=== PATIENT | female | born 1935 | race Caucasian/White ===

== ENCOUNTER → 2016-11-11 | Outpatient (CLI) | payer OTHER ==
[~2016-11-11] MED LIST: ACET-1311 PO; BACL10TA PO; BIOT1CAP8 PO; CALC-335 PO; CALC600T9 PO; CITA10TA8 PO; COLON HEALTH PO; CYAN100048 PO; CYM/30 PO; DFL100 PO; DULO60CA44 PO; ERTA1INJ IV; LACT1CAP6 PO; LEVO75TA PO; LORA-741 PO; LSN25 PO; LYR50 PO; MELA1TAB4 PO; MELA3TAB12; MISCTAB78 PO; MULT-506 PO; NITR100C43 PO; NXM/40 PO; PHEN-876 PO; POLY335019 PO; POLY335040 PO; PRAMCRE2 PR; PRED-301 PO; RANI300T2 PO; SENN-65 PO; SENNTAB23 PO; TRAM-10 PO
[2016-11-11 12:50] LABS: BASO % 0.1 %; BASO ABS # 0.02 K/uL (0-0.2); COMPLETE YES; EOS % 0.5 %; HEMATOCRIT 41.7 % (37-47); IG% 0.9 %; LYMPH % 22.7 %; LYMPH ABS # 3.17 K/uL (1.2-3.4); MEAN CELL VOLUME 94.8 fL (80-100); MEAN CORPUSCULAR HEMOGLOBIN 31.4 pg (25-34); MEAN CORPUSCULAR HGB CONC 33.1 g/dl (32-36); MEAN PLATELET VOLUME 10.3 fL (7.4-10.4); NEUT % 63.8 %; PLATELET COUNT 330 K/uL (130-400); WHITE BLOOD COUNT 13.94 K/uL (4.8-10.8)
[2016-11-11 17:48] LABS: ALT/SGPT 32 U/L (12-78); AST/SGOT 22 U/L (15-37); BLOOD UREA NITROGEN 29 mg/dl (7-18); BUN/CREATININE RATIO 22.7 (10-20); CALCIUM 9.2 mg/dl (8.5-10.1); CARBON DIOXIDE 26 mmol/L (21-32); CHLORIDE 105 mmol/L (98-107); GLUCOSE 86 mg/dl (70-99); POTASSIUM 3.9 mmol/L (3.5-5.1); SODIUM 137 mmol/L (136-145)
[2016-11-11 17:58] LABS: ALB/GLOB RATIO 1.1 (0.9-2); ALKALINE PHOSPHATASE 72 U/L (45-117); THYROID STIMULATING HORMONE 0.906 uIu/ml (0.300-4.500)
--- NOTE | 2016-11-18 08:40 | CODING QUERY MEDICAL NECESSITY ---
CQSUPPORTING DIAGNOSIS NEEDED A supporting diagnosis is required for the test/procedure performed on this patient in order for us to be reimbursed by the patient's insurance. Please provide a supporting diagnosis for the following test/procedure listed below next to the test name along with your signature. *If there is no additional diagnosis for this patient that would support the following test/procedure please document that below next to the test/procedure. Test(s)/Procedure(s) that require a supporting diagnosis: DOS 11/11/16 VITAMIN D TEST Provider Signature: Date: Thank you Nirmala Hammonds Health Information Management Once completed, please kindly fax back to [phone] For questions please call [phone]
== END | disposition home or self-care (01) ==
LOC: C.LABPBG 11:37
PROVIDERS: ATTEND Internal Medicine
DX: M81.0 Age-related osteoporosis without current pathological fracture (principal); E03.9 Hypothyroidism, unspecified

== ENCOUNTER → 2016-11-26 | Day surgery (SDC) | payer OTHER ==
[2016-11-21 11:06] VITALS: Ht 154.9 cm; Wt 68.2 kg
[~2016-11-26] VITALS: Ht 154.9 cm; Wt 68.2 kg
[~2016-11-26] MED LIST changes: -ACET-1311 PO; -CALC-335 PO; -CITA10TA8 PO; +LIDOCAINE HCL 2% 2 ML VIAL (20MG/ML) ONE; -POLY335040 PO; -PRAMCRE2 PR; +PROPOFOL IV EMULSION 10 MG/ML 20 ML VIAL IV ONE; -SENN-65 PO; -TRAM-10 PO
--- NOTE | 2016-11-26 13:04 | Endo History and Physical ---
History & Physical Date of Service: November 26, 2016. Chief Complaint: n/v; h/o polyps Referring Physician: History of Present Illness recurrent nausea, vomiting H/o polyps Past Medical History Osteoporosis, Fractures, Reflux, Hypertension, Thyroid Disease, Kidney Disease, Depression Past Surgical History Hx Cardiac Surgery: No Hx Internal Defibrillator: No Hx Pacemaker: No Hx Abdominal Surgery: Yes ([facility] BSO, APPY, ALISON) Hx of Implantable Prosthesis: No Hx Post-Op Nausea and Vomiting: No Hx Cancer Surgery: No Hx Thoracic Surgery: No Hx Orthopedic: No Hx Urinary Tract Surgery: No Family History Colon CA Social History Smoking Status: Never Smoker Hx Substance Use: No Hx Alcohol Use: No Allergies Coded Allergies: Sulfamethoxazole w/Trimethoprim (Verified Allergy, Severe, "lips swell", ) Sulfa Antibiotics (Verified Allergy, Unknown, swelling of lips, 11/26/16) Codeine (Verified Adverse Reaction, Mild, "nauseated", 11/26/16) Propoxyphene (Verified Adverse Reaction, Mild, "nauseated", 11/26/16) Current Medications Reported Home Medications Medications Dose Route/Sig Max Daily Dose Days Date Category Osteo Bi-Flex Advanced Do ([facility] [place] Natural Products) 1 Tab Tab 1 Tab PO QAM 11/21/16 Reported Stool Softener (Sennosides-Docusate Sodium) 1 Tab Tab 1 Tab PO BID 11/21/16 Reported [Colon Health] 1 Tab PO HS 11/21/16 Reported Calcium + D (Calcium Carbonate-Vitamin D) 1 Tab Tab 2 Tabs PO LUNCH 11/21/16 Reported Cymbalta (Duloxetine HCl) 30 Mg Cap 1 Cap PO QAM 11/21/16 Reported Melatonin (Melatonin-Pyridoxine) 1 Tab Tab 2 Mg HS PRN 02/15/16 Reported Nexium (Esomeprazole Magnesium) 40 Mg Capcr 40 Mg PO QAM 02/15/16 Reported Prednisone 5 Mg Tab 15 Mg PO LUNCH 02/15/16 Reported Lioresal (Baclofen) 10 Mg Tab 10 Mg PO TID PRN 02/15/16 Reported Ativan (Lorazepam) 0.5 Mg Tab 0.5 Mg PO Q8 PRN 10/04/15 Reported Lyrica (Pregabalin) 50 Mg Cap 50 Mg PO BID 10/04/15 Reported Biotin 1 Mg Cap 1 Cap PO LUNCH 07/16/14 Reported Synthroid (Levothyroxine Sodium) 75 Mcg Tab 75 Mcg PO QAM 12/28/13 Reported Multivitamin (Multivitamins) Tab 1 Tab PO LUNCH 08/20/11 Reported Cymbalta (Duloxetine Hcl) 60 Mg Cap 60 Mg PO QAM 08/20/11 Reported Zantac (Ranitidine HCl) 300 Mg Tab 300 Mg PO HS 08/20/11 Reported Vital Signs Weight (Kilograms): 68.18 Height (Feet): 5 Height (Inches): 1 Date Time Temp Pulse Resp B/P Pulse Ox O2 Delivery O2 Flow Rate FiO2 11/26/16 12:33 36.8 87 18 151/85 95 Room Air Physical Exam General Appearance: no apparent distress Respiratory/Chest: Auscultation: breath sounds normal Cardiovascular: Heart Auscultation: RRR Abdomen: Inspection & Palpation: soft Assessment and Plan EGD/cscopy
--- NOTE | 2016-11-26 14:37 | GI REPORT ---
Procedure Date: 11/26/2016 12:38 PM Procedure: Colonoscopy Indications: High risk colon cancer surveillance: Personal history of colonic polyps Medicines: See the Anesthesia note for documentation of the administered medications Complications: No immediate complications. Estimated Blood Loss: Estimated blood loss: none. Procedure: Pre-Anesthesia Assessment: - ASA Grade Assessment: III - A patient with severe systemic disease. After I obtained informed consent, the scope was passed under direct vision. Throughout the procedure, the patient's blood pressure, pulse, and oxygen saturations were monitored continuously. The scope was introduced through the anus and advanced to the terminal ileum. The patient tolerated the procedure well. The quality of the bowel preparation was fair. The colonoscopy was somewhat difficult due to a tortuous colon. Findings: The perianal exam findings include non-thrombosed external hemorrhoids. An area of moderately melanotic mucosa was found in the entire colon. A 8 mm polyp was found in the ascending colon. The polyp was sessile. The polyp was removed with a saline injection-lift technique using a hot snare. Resection and retrieval were complete. To prevent bleeding after the polypectomy, one hemostatic clip was successfully placed. There was no bleeding at the end of the procedure. A 5 mm polyp was found in the ascending colon. The polyp was sessile. The polyp was removed with a hot snare. Resection and retrieval were complete. A 2 mm polyp was found in the transverse colon. The polyp was sessile. The polyp was removed with a cold snare. Resection and retrieval were complete. Multiple small and large-mouthed diverticula were found in the sigmoid colon and in the descending colon. Hemorroids on retroflexion. Impression: - Non-thrombosed external hemorrhoids found on perianal exam. - Melanotic mucosa in the entire examined colon. - One 8 mm polyp in the ascending colon, removed using injection-lift and a hot snare. Resected and retrieved. Clip was placed. - One 5 mm polyp in the ascending colon, removed with a hot snare. Resected and retrieved. - One 2 mm polyp in the transverse colon, removed with a cold snare. Resected and retrieved. - Diverticulosis in the sigmoid colon and in the descending colon. Recommendation: - Discharge patient to home. Sander Kraus MD 11/26/2016 2:37:04 PM This report has been signed electronically. Note Initiated On: 11/26/2016 12:38 PM I attest to the content of the Intraoperative Record and orders documented therein, exceptions below
--- NOTE | 2016-11-26 14:39 | GI REPORT ---
Procedure Date: 11/26/2016 12:39 PM Procedure: Upper GI endoscopy Indications: Abdominal pain Medicines: See the Anesthesia note for documentation of the administered medications Complications: No immediate complications. Estimated Blood Loss: Estimated blood loss: none. Procedure: Pre-Anesthesia Assessment: - ASA Grade Assessment: III - A patient with severe systemic disease. After obtaining informed consent, the endoscope was passed under direct vision. Throughout the procedure, the patient's blood pressure, pulse, and oxygen saturations were monitored continuously. The scope was introduced through the mouth, and advanced to the second part of duodenum. The upper GI endoscopy was accomplished without difficulty. The patient tolerated the procedure well. Findings: The esophagus was markedly tortuous. The GE junction was at 32 cm. There was a small hiatal hernia. There was a mild candidal infection in the lower esophagus. The stomach and duodenum were unremarkable. Recommendation: - Discharge patient to home. Sander Kraus MD 11/26/2016 2:39:36 PM This report has been signed electronically. Note Initiated On: 11/26/2016 12:39 PM I attest to the content of the Intraoperative Record and orders documented therein, exceptions below
--- NOTE | 2016-11-26 14:54 | Anesthesia Progress Nt - [facility] ---
Anesthesia Post Op Note Date & Time November 26, 2016 at 14:54 Vital Signs Pain Intensity: 0 Vital Signs Past 12 Hours Date Time Temp Pulse Resp B/P Pulse Ox O2 Delivery O2 Flow Rate FiO2 11/26/16 14:41 72 16 154/76 97 Room Air 11/26/16 14:26 72 16 145/84 97 Room Air 11/26/16 14:11 75 16 155/81 97 Room Air 11/26/16 12:33 36.8 87 18 151/85 95 Room Air Notes Mental Status: alert / awake / arousable, participated in evaluation Pt Amnestic to Procedure: Yes Nausea / Vomiting: adequately controlled Pain: adequately controlled Airway Patency, RR, SpO2: stable & adequate BP & HR: stable & adequate Hydration State: stable & adequate Anesthetic Complications: no major complications apparent
[2016-11-26 15:02] VITALS: BP 162/84; PULSE 72; O2SAT 94
--- NOTE | 2016-11-26 15:15 | Discharge Instructions ---
Endoscopy Patient Instructions Date / Procedure(s) Performed November 26, 2016. Colonoscopy, EGD Allergy Information Coded Allergies: Sulfamethoxazole w/Trimethoprim (Verified Allergy, Severe, "lips swell", ) Sulfa Antibiotics (Verified Allergy, Unknown, swelling of lips, 11/26/16) Codeine (Verified Adverse Reaction, Mild, "nauseated", 11/26/16) Propoxyphene (Verified Adverse Reaction, Mild, "nauseated", 11/26/16) Discharge Date / Findings November 26, 2016. Colon polyps Provider Instructions Activity Restrictions - No exercising or heavy lifting for 24 hours. - Do not drink alcohol the day of the procedure. - Do not drive a car or operate machinery until the day after the procedure. - Do not make any important decisions or sign important papers in 24 hours after the procedure. Following Day: - Return to full activity which may include returning to work/school. Diet Start your diet with liquids and light foods (jello, soup, juice, toast). Then eat your usual diet if not nauseated. Treatment For Common After Affects For mild abdominal pain, bloating, or excessive gas: - Rest - Eat lightly - Lie on right side Follow-Up Information Follow-up with as scheduled Anesthesia Information What You Should Know You have had a procedure that required some medicine to reduce anxiety and discomfort. This treatment is called moderate sedation. After receiving the treatment, you may be sleepy, but you will be able to breathe on your own. The effects of the treatment may last for several hours. Follow these instructions along with Activity/Diet recommendations noted above: * Do NOT do anything where dizziness or clumsiness would be dangerous. * Rest quietly at home today, then you can be up and about tomorrow. * Have a responsible person stay with you the rest of today. * You may have had an I.V. today. If so, you may take the dressing off later today. Recommendations Call your doctor if: * Trouble breathing * Continuous vomiting for more than 24 hours * Temperature above 101 degrees * Severe abdominal pain or bloating * Pain not relieved by pain medicine ordered * There is increased drainage or redness from any incision * A large amount of rectal bleeding greater than 2-3 tablespoons. (If you had a polyp/s removed or have hemorrhoids, a small amount of blood - from the rectum is to be expected.) * You have any unanswered questions or concerns. IN THE EVENT OF A SERIOUS EMERGENCY, GO TO THE NEAREST EMERGENCY ROOM Your discharge instructions were prepared by provider Teresa Stuart. Patient Instructions Signature Page Jennifer Vieira Patient (or Guardian) Signature/Date: I have read and understand the instructions given to me by my caregivers. Caregiver/RN/Doctor Signature/Date: The above-named patient and/or guardian has received patient instructions on this date. + Original Patient Signature Page (only) stays with chart. Please make copy for patient.
== END | disposition home or self-care (01) ==
LOC: C.GI 12:01
PROVIDERS: ATTEND Internal Medicine Gastroenterology
DX: K44.9 Diaphragmatic hernia without obstruction or gangrene (principal); B37.81 Candidal esophagitis; R10.9 Unspecified abdominal pain; Z12.11 Encounter for screening for malignant neoplasm of colon; D12.3 Benign neoplasm of transverse colon; D12.2 Benign neoplasm of ascending colon; K57.30 Diverticulosis of large intestine without perforation or abscess without bleeding; K63.89 Other specified diseases of intestine; Z86.010 Personal history of colon polyps; Z80.0 Family history of malignant neoplasm of digestive organs; K64.4 Residual hemorrhoidal skin tags; I10 Essential (primary) hypertension; K21.9 Gastro-esophageal reflux disease without esophagitis; E07.9 Disorder of thyroid, unspecified; N28.9 Disorder of kidney and ureter, unspecified; F32.9 Major depressive disorder, single episode, unspecified; M81.0 Age-related osteoporosis without current pathological fracture; Z79.899 Other long term (current) drug therapy

== ENCOUNTER → 2016-12-26 | Outpatient (CLI) | payer OTHER ==
[~2016-12-26] MED LIST changes: -LIDOCAINE HCL 2% 2 ML VIAL (20MG/ML) ONE; -PROPOFOL IV EMULSION 10 MG/ML 20 ML VIAL IV ONE
== END | disposition home or self-care (01) ==
LOC: C.LABPBG 14:49
PROVIDERS: ATTEND Internal Medicine
DX: R32 Unspecified urinary incontinence (principal)

== ENCOUNTER → 2017-01-13 | Outpatient (CLI) | payer OTHER ==
[~2017-01-13] MED LIST changes: -DFL100 PO; -LSN25 PO; +NITR100C41 PO; -NITR100C43 PO
--- NOTE | 2017-01-13 16:19 | DIAGNOSTIC IMAGING REPORT ---
KUB CLINICAL HISTORY: Nephrolithiasis. FINDINGS: 2 AP supine abdominal radiographs are correlated with abdominal CT dated 10/23/2015. There is a nonobstructed abdominal bowel gas pattern noting moderate colonic fecal retention. There is no radiographic evidence of nephrolithiasis. The left renal shadow the largely obscured by overlying colonic contents. Numerous pelvic phleboliths are observed. The skeletal structures are osteopenic. There is advanced lumbosacral spondylosis and scoliosis with extensive lumbar fusion and bone grafting. Bilateral hip arthroplasties are in place. Chronic pubic ring fractures are noted on the right. A severe chronic compression deformity of T12 is seen. IMPRESSION: 1. Moderate to severe constipation. 2. There is no radiographic evidence of nephrolithiasis on today's examination. Electronically signed by: Venkat Martinez M.D. 01/13/2017 4:18 PM Dictated Date/Time: 01/13/2017 4:17 PM
== END | disposition home or self-care (01) ==
LOC: C.RAD 15:01
PROVIDERS: ATTEND Nurse Practitioner Family
DX: K59.00 Constipation, unspecified (principal); Z87.442 Personal history of urinary calculi

== ENCOUNTER → 2017-02-17 | Outpatient (CLI) | payer OTHER | END | disposition home or self-care (01) | LOC: C.LABSPEC 11:18 | PROVIDERS: ATTEND Nurse Practitioner Family | DX: N39.0 Urinary tract infection, site not specified (principal); R32 Unspecified urinary incontinence ==

== ENCOUNTER → 2017-03-12 | Outpatient (CLI) | payer OTHER ==
[2017-03-12 12:38] LABS: URINE APPEARANCE TURBID (CLEAR); URINE BILIRUBIN NEG (NEG); URINE COLOR YELLOW; URINE EPITHELIAL CELL AUTO >30 /lpf (0-5); URINE NITRITE POS (NEG); URINE PH 8.5 (4.5-7.5); URINE SPECIFIC GRAVITY 1.011 (1.000-1.030); UROBILINOGEN NEG (NEG)
[2017-03-12 12:47] LABS: MANUAL MICROSCOPIC REQUIRED? NO; REVIEW REQ? YES
== END | disposition home or self-care (01) ==
LOC: C.LABPBG 09:14
PROVIDERS: ATTEND Internal Medicine
DX: R32 Unspecified urinary incontinence (principal); N39.0 Urinary tract infection, site not specified

== ENCOUNTER → 2017-03-24 | Outpatient (CLI) | payer OTHER | END | disposition home or self-care (01) | LOC: C.LABSPEC 17:32 | PROVIDERS: ATTEND Nurse Practitioner Family | DX: R39.9 Unspecified symptoms and signs involving the genitourinary system (principal) ==

== ENCOUNTER 2017-03-27 14:51 | Inpatient (IN) | payer OTHER ==
[~2017-03-27] VITALS: Ht 152.4 cm; Wt 73.0 kg
[~2017-03-27 14:51] MED LIST changes: -CYAN100048 PO; -ERTA1INJ IV; -LACT1CAP6 PO; -MELA1TAB4 PO; -NITR100C41 PO; -PHEN-876 PO; -POLY335019 PO
[2017-03-27] MEDS ORDERED: SODIUM CHLORIDE 0.9% 250ML 250 ML IV STA (15:33)
[2017-03-27 15:43] LABS: BASO % 0.1 %; BASO ABS # 0.02 K/uL (0-0.2); COMPLETE YES; HEMATOCRIT 37.6 % (37-47); IG% 0.5 %; LYMPH % 5.9 %; LYMPH ABS # 1.37 K/uL (1.2-3.4); MEAN CELL VOLUME 95.9 fL (80-100); MEAN CORPUSCULAR HEMOGLOBIN 32.4 pg (25-34); MEAN CORPUSCULAR HGB CONC 33.8 g/dl (32-36); MEAN PLATELET VOLUME 10.3 fL (7.4-10.4); NEUT % 85.5 %; PLATELET COUNT 305 K/uL (130-400); RED BLOOD COUNT 3.92 M/uL (4.2-5.4); WHITE BLOOD COUNT 23.25 K/uL (4.8-10.8)
[2017-03-27] MEDS ORDERED: POLY335019 PO (15:50)
[2017-03-27] MEDS ORDERED: LACT1CAP6 PO (15:50)
[2017-03-27] MEDS ORDERED: MELA1TAB4 PO (15:50)
[2017-03-27] MEDS ORDERED: CYAN100048 PO (15:50)
[2017-03-27] MEDS ORDERED: PHEN-876 PO (15:50)
[2017-03-27] MEDS ORDERED: NITR100C41 PO (15:50)
[2017-03-27 15:52] LABS: ALT/SGPT 21 U/L (12-78); BLOOD UREA NITROGEN 16 mg/dl (7-18); BUN/CREATININE RATIO 14.7 (10-20); CALCIUM 9.2 mg/dl (8.5-10.1); CARBON DIOXIDE 23 mmol/L (21-32); CHLORIDE 100 mmol/L (98-107); GLUCOSE 148 mg/dl (70-99); POTASSIUM 3.8 mmol/L (3.5-5.1); SODIUM 132 mmol/L (136-145)
[2017-03-27 15:54] LABS: ALB/GLOB RATIO 0.8 (0.9-2); ALKALINE PHOSPHATASE 68 U/L (45-117); AST/SGOT 22 U/L (15-37)
[2017-03-27 15:55] LABS: PROTHROMBIN TIME (PATIENT) 10.7 SECONDS (9.0-12.0)
--- NOTE | 2017-03-27 15:55 | DIAGNOSTIC IMAGING REPORT ---
CHEST ONE VIEW PORTABLE CLINICAL HISTORY: 81 years-old Female presenting with Sepsis. TECHNIQUE: Portable upright AP view of the chest was obtained. COMPARISON: 02/15/2016. FINDINGS: Atherosclerosis of the aortic arch. Cardiac silhouette normal in size. Bandlike opacities at the lung bases as well as retrocardiac opacities, unchanged from prior. No new focal infiltrate. No large effusion or pneumothorax. Osteopenia may be present. Upper abdomen normal. IMPRESSION: 1. Bibasilar atelectasis or scarring, not significant changed from prior exam. No new focal infiltrate. Electronically signed by: Topher Chahal M.D. 03/27/2017 3:54 PM Dictated Date/Time: 03/27/2017 3:52 PM
[2017-03-27] MEDS ORDERED: ERTAPENEM 1 GM ADDVIAL IV ONE (16:30)
[2017-03-27] MEDS ORDERED: ONDANSETRON INJ 2 MG/ML 2 ML VIAL IV PRN (17:15)
[2017-03-27] MEDS ORDERED: ACETAMINOPHEN 325 MG TAB PO PRN (17:15)
[2017-03-27] MEDS ORDERED: ALUMINUM/MAGNESIUM/SIMETH (MAALOX MAX) 30 ML UDC PO PRN (17:15)
[2017-03-27] MEDS ORDERED: MAGNESIUM HYDROXIDE SUSP 30 ML UDC PO PRN (17:15)
[2017-03-27] MEDS ORDERED: LORAZEPAM 0.5 MG TAB PO PRN (17:15)
[2017-03-27] MEDS ORDERED: BACLOFEN 10 MG TAB PO PRN (17:15)
--- NOTE | 2017-03-27 17:26 | History and Physical ---
History & Physical Date & Time of Service: Mar 27, 2017 at 17:11 Chief Complaint: UTI Primary Care Physician: Topher Artis M.D. History of Present Illness Source: patient, family (daughter at bedside), clinic records, hospital records This is an 81 y/o female with a history of recurrent UTI, SLE, HTN, hypothyroidism, CKD stage III, anxiety and depression, fibromyalgia and urinary incontinence who presented to the ED on 03/27 with urinary tract infection, confusion, weakness and dizziness. The patient had been diagnosed with a UTI as an outpatient and had just completed a course of ampicillin on 03/24. She was following up with urology when a repeat urine culture was taken. The results came back yesterday and was again positive for multi-drug resistant E. coli. The patient was started on Macrobid of which she took 2 doses prior to arrival. Yesterday the patient was having chills and was very dizzy per daughter. Today the patient felt feverish and very weak, unable to even hold herself up. The daughter states that the patient had been confused as well, although this seems to have resolved. The patient complains of a mild but sharp pain in her suprapubic area. She is unable to quantify the severity of the pain. The patient denies sweats, chest pain, palpitations, claudication, cough, wheezing, shortness of breath, nausea, vomiting, dysuria, hematuria, urinary retention, paralysis, motor weakness, numbness and tingling. Past Medical/Surgical History Medical Problems: (1) Benign hypertension Status: Chronic (2) Chronic kidney disease stage 3 Status: Chronic (3) Depression Status: Chronic (4) Diverticular disease of colon Status: Chronic (5) Gastroesophageal reflux disease Status: Chronic (6) History of calculus of kidney Permanent Comment: s/p lithotripsy Status: Chronic (7) History of Clostridium difficile infection Status: Chronic (8) History of esophageal stricture Status: Chronic (9) Hypothyroidism Status: Chronic (10) Osteoporosis Status: Chronic (11) Recurrent UTI Status: Chronic (12) S/P ECT (electroconvulsive therapy) Status: Chronic (13) Spinal stenosis Status: Chronic (14) Spondylolisthesis Status: Chronic (15) Systemic lupus erythematosus Status: Chronic (16) Trigeminal neuralgia Status: Chronic Surgical Problems: (1) History of esophageal dilatation Status: Chronic (2) S/P lumbar fusion Status: Chronic (3) Stat post lithotripsy Status: Chronic (4) Status post cataract extraction Status: Chronic (5) Status post cholecystectomy Status: Chronic (6) Status post hip replacement Status: Chronic (7) Status post hysterectomy Status: Chronic Family History Depression Diabetes mellitus Malignancy (prostate cancer) Social History Smoking Status: Never Smoker Smokeless Tobacco Use: No Alcohol Use: none Drug Use: none Marital Status: Housing status: lives alone Occupational Status: retired Immunizations History of Influenza Vaccine: Yes Influenza Vaccine Date: Apr 04, 2015 History of Tetanus Vaccine?: Yes Tetanus Immunization Date: Dec 29, 2007 History of Pneumococcal: Yes Pneumococcal Date: Jun 19, 2007 Allergies Coded Allergies: Sulfamethoxazole w/Trimethoprim (Verified Allergy, Severe, "lips swell", ) Sulfa Antibiotics (Verified Allergy, Unknown, swelling of lips, 03/27/17) Codeine (Verified Adverse Reaction, Mild, "nauseated", 03/27/17) Propoxyphene (Verified Adverse Reaction, Mild, "nauseated", 03/27/17) Home Medications Scheduled Biotin (Biotin), 1 CAP PO LUNCH Calcium Carbonate-Vitamin D (Calcium + D), 2 TABS PO LUNCH Cyanocobalamin (Vitamin B-12), 1,000 MCG PO DAILY Duloxetine Hcl (Cymbalta), 60 MG PO QAM Esomeprazole Magnesium (Nexium), 40 MG PO QAM Lactobacillus (Probiotic), 1 CAP PO HS Levothyroxine Sodium (Synthroid), 75 MCG PO QAM Misc Natural Products (Osteo Bi-Flex Advanced Do), 1 TAB PO QAM Multivitamin (Multivitamin), 1 TAB PO LUNCH Nitrofurantoin Macrocrystal (Nitrofurantoin), 100 MG PO BID Phenazopyridine HCl (Pyridium), 200 MG PO TID Polyethylene Glycol 3350 (Miralax), 17 GM PO DAILY Prednisone (Prednisone), 10 MG PO LUNCH Pregabalin (Lyrica), 50 MG PO BID Ranitidine (Zantac), 300 MG PO HS Sennosides-Docusate Sodium (Stool Softener), 1 TAB PO BID Scheduled PRN Baclofen (Lioresal), 10 MG PO HS PRN for Muscle Spasms Lorazepam (Ativan), 0.5 MG PO Q8 PRN for Anxiety Melatonin (Melatonin), 1 MG PO HS PRN for Sleep Review of Systems Constitutional: + fever, + chills, + weakness, No sweats Eyes: No worsening of vision, No eye pain, No diplopia ENT: No hearing loss, No sore throat, No trouble swallowing Respiratory: No cough, No wheezing, No shortness of breath Cardiovascular: No chest pain, No claudication, No palpitations Abdomen: + pain, No nausea, No vomiting Musculoskeletal: No joint pain, No muscle pain, No swelling Genitourinary - Female: No dysuria, No urinary retention, No hematuria Neurologic: No paralysis, No weakness, No numbness/tingling Integumentary: No rash, No itch, No color change Physical Exam Vital Signs Date Time Temp Pulse Resp B/P (MAP) Pulse Ox O2 Delivery O2 Flow Rate FiO2 03/27/17 16:33 86 18 157/86 95 Room Air 03/27/17 15:44 95 Room Air 03/27/17 15:07 36.7 89 20 174/92 93 Room Air General appearance: +Obese. Well-developed, well-nourished, no apparent distress Head: Normocephalic, atraumatic Eyes: Normal inspection, PERRL, EOMI ENT: Normal ENT inspection, hearing grossly normal, pharynx normal Neck: Supple, no JVD, trachea midline Respiratory/Chest: Lungs clear to auscultation, normal breath sounds, no respiratory distress Cardiovascular: Regular rate & rhythm, no gallop, no murmur Abdomen/GI: +Suprapubic area mildly TTP. Normal bowel sounds, soft Extremities/Musculoskeletal: +Trace pitting edema. Normal inspection, no calf tenderness, no pedal edema Neurological/Psych: Alert, normal mood/affect, oriented x 3 Skin: Normal color, warm/dry, no rash Diagnostics Laboratory Results Results Past 24 Hours Test 03/27/17 15:02 03/27/17 16:05 Range/Units White Blood Count 23.25 4.8-10.8 K/uL Red Blood Count 3.92 4.2-5.4 M/uL Hemoglobin 12.7 12.0-16.0 g/dL Hematocrit 37.6 37-47 % Mean Corpuscular Volume 95.9 80-100 fL Mean Corpuscular Hemoglobin 32.4 25-34 pg Mean Corpuscular Hemoglobin Concent 33.8 32-36 g/dl Platelet Count 305 130-400 K/uL Mean Platelet Volume 10.3 7.4-10.4 fL Neutrophils (%) (Auto) 85.5 % Lymphocytes (%) (Auto) 5.9 % Monocytes (%) (Auto) 8.0 % Eosinophils (%) (Auto) 0.0 % Basophils (%) (Auto) 0.1 % Neutrophils # (Auto) 19.89 1.4-6.5 K/uL Lymphocytes # (Auto) 1.37 1.2-3.4 K/uL Monocytes # (Auto) 1.86 0.11-0.59 K/uL Eosinophils # (Auto) 0.00 0-0.5 K/uL Basophils # (Auto) 0.02 0-0.2 K/uL RDW Standard Deviation 52.2 36.4-46.3 fL RDW Coefficient of Variation 15.0 11.5-14.5 % Immature Granulocyte % (Auto) 0.5 % Immature Granulocyte # (Auto) 0.11 0.00-0.02 K/uL Prothrombin Time 10.7 9.0-12.0 SECONDS Prothromb Time International Ratio 1.0 0.9-1.1 Activated Partial Thromboplast Time 27.1 21.0-31.0 SECONDS Partial Thromboplastin Ratio 1.0 Sodium Level 132 136-145 mmol/L Potassium Level 3.8 3.5-5.1 mmol/L Chloride Level 100 98-107 mmol/L Carbon Dioxide Level 23 21-32 mmol/L Anion Gap 9.0 3-11 mmol/L Blood Urea Nitrogen 16 7-18 mg/dl Creatinine 1.10 0.60-1.20 mg/dl Est Creatinine Clear Calc Drug Dose 35.2 ml/min Estimated GFR () 54.1 Estimated GFR (Non- 46.7 BUN/Creatinine Ratio 14.7 10-20 Random Glucose 148 70-99 mg/dl Calcium Level 9.2 8.5-10.1 mg/dl Total Bilirubin 0.7 0.2-1 mg/dl Aspartate Amino Transf (AST/SGOT) 22 15-37 U/L Alanine Aminotransferase (ALT/SGPT) 21 12-78 U/L Alkaline Phosphatase 68 45-117 U/L Troponin I < 0.015 0-0.045 ng/ml Total Protein 6.8 6.4-8.2 gm/dl Albumin 3.1 3.4-5.0 gm/dl Globulin 3.7 2.5-4.0 gm/dl Albumin/Globulin Ratio 0.8 0.9-2 Bedside Lactic Acid Venous 1.27 0.90-1.70 mmol/L Microbiology Results 03/27/17 Blood Culture, Received Pending 03/27/17 Blood Culture, Received Pending Diagnostic Radiology Reviewed the following studies and agree with interpretation as follows: Patient Name: AMAURY WILDE Unit Number: [id number] Dictated: 03/27/171551 Transcribed: 03/27/171551 PBS Printed Date/Time: [~ rep prt dt]/[~ rep prt tm] [~ rep ct labl] - [~ rep ct ivnm] [facility] Radiology Department [place], [place] [id number] Dictated: 03/27/171551 Transcribed: 03/27/171551 PBS Printed Date/Time: [~ rep prt dt]/[~ rep prt tm] [~ rep ct labl] - [~ rep ct ivnm] Patient: AMAURY WILDE Address1: [address] [place] [address] Rec: [id number] Address2: Acct ID: [id number] [facility] Zip: [place] [address] Date: 1935 Sex: F Room/Bed: Ref Phy: Topher Artis M.D. SC: REBECA Att Phy: Report #: [id number] [facility] Phy: Topher Artis M.D. Test: CXR1P Admit Phy: Publications Manager: RA Interpreting Phy: Topher Chahal MD Diagnosis: UTI Ordering Phy: Denis Mejias MD Service Date: 03/27/17 Admit Date: 03/27/17 MNE: [id number] CONF: DICTATED BY: Topher Chahal MD]] CC: Denis Mejias M.D. Guillard, Paul, M.D. Endcc: [~ rep ct add3]] CHEST ONE VIEW PORTABLE CLINICAL HISTORY: 81 years-old Female presenting with Sepsis. TECHNIQUE: Portable upright AP view of the chest was obtained. COMPARISON: 02/15/2016. FINDINGS: Atherosclerosis of the aortic arch. Cardiac silhouette normal in size. Bandlike opacities at the lung bases as well as retrocardiac opacities, unchanged from prior. No new focal infiltrate. No large effusion or pneumothorax. Osteopenia may be present. Upper abdomen normal. IMPRESSION: 1. Bibasilar atelectasis or scarring, not significant changed from prior exam. No new focal infiltrate. Electronically signed by: Topher Chahal M.D. 03/27/2017 3:54 PM Dictated Date/Time: 03/27/2017 3:52 PM The status of this report is Signed. Draft = Not yet reviewed or approved by Radiologist. Signed = Reviewed and approved by Radiologist. <AttendingPhy></AttendingPhy> <FamilyPhy>Topher Artis M.D.</FamilyPhy> < PrimaryPhy>Topher Artis M.D.</PrimaryPhy> <UnitNumber>[id number]</UnitNumber> <VisitNumber>[id number]</VisitNumber> <PatientName>AMAURY WILDE</ PatientName> <DateOfBirth>1935</DateOfBirth> <Location>C.EDB</Location> < ServiceDate>03/27/17</ServiceDate> <MNE>ESINDI</MNE> <OrderingPhy>Denis Mejias MD</OrderingPhy> <OrderingPhyMNE>f rep ord dr cope</OrderingPhyMNE> < DictatingPhyMNE>f rep dict dr cope</DictatingPhyMNE> <CCListMNE>f rep ct anatoliy</ CCListMNE> <AdmittingPhyMNE>f pt admit dr cope</AdmittingPhyMNE> <AttendingPhyMNE >f pt attend dr cope</AttendingPhyMNE> <ConsultingPhyMNE>f pt consult dr cope</ConsultingPhyMNE> <FamilyPhyMNE>f pt fam dr cope</FamilyPhyMNE> <OtherPhyMNE>f pt other dr cope</OtherPhyMNE> < PrimaryPhyMNE>f pt prim care dr cope</PrimaryPhyMNE> <ReferringPhyMNE>f pt referring dr cope</ReferringPhyMNE> EKG Reviewed EKG and agree with interpretation as follows: 89 bpm, NSR Impression Assessment and Plan 81 y/o female with a history of recurrent UTI, SLE, HTN, hypothyroidism, CKD stage III, anxiety and depression, fibromyalgia and urinary incontinence who presented to the ED on 03/27 with urinary tract infection, confusion, weakness and dizziness. Pt arrived to the ED afebrile, VSS. No hypotension or hypoxia. Pt alert and oriented x 3, no longer confused. WBC 23.25. Labs otherwise grossly unremarkable. CXR no acute disease. EKG no ischemic changes. Review of outpatient records shows positive urine culture from 03/24 with multi drug resistant E. Coli. Sensitive to Bactrim, ertapenem, imipenem and Zosyn. Pt allergic to Bactrim. She has been on ertapenem in the past. Pt given first dose ertapenem in ED along with 250 cc NSS bolus. Recurrent MDR UTI -Admit to med/surg as vital signs stable -Ertapenem 1 gm IV qd -Consult infectious disease, appreciate recs -Blood cultures pending -Continue Pyridium 200 mg PO TID prn SLE -Continue Prednisone 10 mg PO qam HTN--stable Hypothyroidism -Continue Synthroid 75 mcg PO qd CKD stage III--stable -Creatinine stable, at baseline Anxiety and depression -Continue Cymbalta 60 mg PO qd and Ativan 0.5 mg PO TID prn anxiety Fibromyalgia, chronic pain -Continue Lyrica 50 mg PO BID GERD -Nexium converted to Protonix 40 mg PO qd. Continue Zantac 300 mg PO hs DVT prophylaxis -Heparin 5000 units SC q12h -CLARA zepeda and MIGUELINAs Code Status -Level V, DO NOT RESUSCITATE Dispo -Pt over 79 and lives alone -PT/OT evaluate and treat, case management consulted I agree with PA assessment and plan and have seen and examined pt myself Resting comfortably in bed VSS Labs reviewed Noted leukocytosis MDR Ecoli in the past Reviewed recent urine cx E coli once again Agree with IV ertapenem at this time ID consulted Level of Care Med/Surg Resuscitation Status DO NOT RESUSCITATE VTE Prophylaxis VTE Risk Assessment Done? Y/N: Yes Risk Level: Moderate Given or contraindicated: Unfractionated heparin SQ, T.E.D. Stockings, SCD's
--- NOTE | 2017-03-27 18:30 | EMERGENCY ROOM VISIT NOTE ---
History Report prepared by Girish: Aida Machado Under the Supervision of: Dr. Denis Mejias M.D. First contact with patient: 15:20 Chief Complaint: WEAKNESS Stated Complaint: UTI Nursing Triage Summary: Pt arrived via ambulance from home. Pts daughter reports that the pt was diagnosed with a UTI yesterday. Today when she went to check on the pt. she was found to have an increased fever, confusion, she was weak and dizzy. Pts daughter called 911. She reported that her mother has a history of UTI and has been hospitalized before due to UTI's. History of Present Illness The patient is an 81 year old female who presents to the Emergency Room with complaints of persistent weakness starting earlier today. She presents to the ED by EMS. She has a history of UTI and was diagnosed with a UTI recently. She was started on Macrobid. She has had 2 doses. She finished a 10 day course of ampicillin 3 days ago for UTI. Her daughter states that the patient was confused today. She has been too weak to stand or sit up. She has not been eating well. She last ate a piece of toast this morning. She complains of lower abdominal pain and dizziness. She was told she has a fever by EMS. She has not vomited. She has a history of sepsis. Source of History: patient, family Onset: earlier today Position: other (global) Quality: other (weakness) Timing: other (persistent) Associated Symptoms: + fevers, + abdominal pain, No vomiting Note: Pt is confused, dizzy. Review of Systems See HPI for pertinent positives & negatives. A total of 10 systems reviewed and were otherwise negative. Past Medical & Surgical Medical Problems: (1) Benign hypertension (2) Chronic kidney disease stage 3 (3) Depression (4) Diverticular disease of colon (5) Encephalopathy (6) Gastroesophageal reflux disease (7) History of calculus of kidney (8) History of Clostridium difficile infection (9) History of esophageal stricture (10) Hypothyroidism (11) Osteoporosis (12) Recurrent UTI (13) S/P ECT (electroconvulsive therapy) (14) Spinal stenosis (15) Spondylolisthesis (16) Systemic lupus erythematosus (17) Trigeminal neuralgia (18) Urinary tract infection Surgical Problems: (1) History of esophageal dilatation (2) S/P lumbar fusion (3) Stat post lithotripsy (4) Status post cataract extraction (5) Status post cholecystectomy (6) Status post hip replacement (7) Status post hysterectomy Family History Malignancy Social History Smoking Status: Never Smoker Alcohol Use: none Drug Use: none Marital Status: Housing Status: lives with family Occupation Status: retired Current/Historical Medications Scheduled Biotin (Biotin), 1 CAP PO LUNCH Calcium Carbonate-Vitamin D (Calcium + D), 2 TABS PO LUNCH Cyanocobalamin (Vitamin B-12), 1,000 MCG PO DAILY Duloxetine Hcl (Cymbalta), 60 MG PO QAM Esomeprazole Magnesium (Nexium), 40 MG PO QAM Lactobacillus (Probiotic), 1 CAP PO HS Levothyroxine Sodium (Synthroid), 75 MCG PO QAM Misc Natural Products (Osteo Bi-Flex Advanced Do), 1 TAB PO QAM Multivitamin (Multivitamin), 1 TAB PO LUNCH Nitrofurantoin Macrocrystal (Nitrofurantoin), 100 MG PO BID Phenazopyridine HCl (Pyridium), 200 MG PO TID Polyethylene Glycol 3350 (Miralax), 17 GM PO DAILY Prednisone (Prednisone), 10 MG PO LUNCH Pregabalin (Lyrica), 50 MG PO BID Ranitidine (Zantac), 300 MG PO HS Sennosides-Docusate Sodium (Stool Softener), 1 TAB PO BID Scheduled PRN Baclofen (Lioresal), 10 MG PO HS PRN for Muscle Spasms Lorazepam (Ativan), 0.5 MG PO Q8 PRN for Anxiety Melatonin (Melatonin), 1 MG PO HS PRN for Sleep Allergies Coded Allergies: Sulfamethoxazole w/Trimethoprim (Verified Allergy, Severe, "lips swell", ) Sulfa Antibiotics (Verified Allergy, Unknown, swelling of lips, 03/27/17) Codeine (Verified Adverse Reaction, Mild, "nauseated", 03/27/17) Propoxyphene (Verified Adverse Reaction, Mild, "nauseated", 03/27/17) Physical Exam Vital Signs Date Time Temp Pulse Resp B/P (MAP) Pulse Ox O2 Delivery O2 Flow Rate FiO2 03/27/17 18:03 37.0 88 18 166/85 94 Room Air 03/27/17 16:33 86 18 157/86 95 Room Air 03/27/17 15:44 95 Room Air 03/27/17 15:07 36.7 89 20 174/92 93 Room Air Physical Exam Constitutional: Vital signs reviewed. Eyes: Pupils are equal round reactive to light. Conjunctiva are noninjected. ENT: Pharynx is clear without erythema or exudate. Mucous membranes are dry. Neck supple without meningeal signs. Respiratory: Clear to auscultation bilaterally. Breath sounds are equal bilaterally. Cardiovascular: Regular rate and rhythm. No rubs or gallops. GI: Soft, nondistended and nontender. Bowel sounds are present. Musculoskeletal: No peripheral edema. No lower extremity tenderness. Integumentary: No cyanosis. Neurological: The patient is awake and alert. No focal deficits. Psychiatric: Normal affect. Medical Decision & Procedures ER Provider Diagnostic Interpretation: X-ray results as stated below per interpretation by me and the radiologist: CHEST ONE VIEW PORTABLE CLINICAL HISTORY: 81 years-old Female presenting with Sepsis. TECHNIQUE: Portable upright AP view of the chest was obtained. COMPARISON: 02/15/2016. FINDINGS: Atherosclerosis of the aortic arch. Cardiac silhouette normal in size. Bandlike opacities at the lung bases as well as retrocardiac opacities, unchanged from prior. No new focal infiltrate. No large effusion or pneumothorax. Osteopenia may be present. Upper abdomen normal. IMPRESSION: 1. Bibasilar atelectasis or scarring, not significant changed from prior exam. No new focal infiltrate. Electronically signed by: Topher Chahal M.D. 03/27/2017 3:54 PM Dictated Date/Time: 03/27/2017 3:52 PM Laboratory Results 03/27/17 15:02 Red Blood Count 3.92, Mean Corpuscular Volume 95.9, Mean Corpuscular Hemoglobin 32.4, Mean Corpuscular Hemoglobin Concent 33.8, Mean Platelet Volume 10.3, Neutrophils (%) (Auto) 85.5, Lymphocytes (%) (Auto) 5.9, Monocytes (%) (Auto) 8.0, Eosinophils (%) (Auto) 0.0, Basophils (%) (Auto) 0.1, Neutrophils # (Auto) 19.89, Lymphocytes # (Auto) 1.37, Monocytes # (Auto) 1.86, Eosinophils # (Auto) 0.00, Basophils # (Auto) 0.02 03/27/17 15:02 Test 03/27/17 15:02 03/27/17 16:05 White Blood Count 23.25 K/uL (4.8-10.8) Red Blood Count 3.92 M/uL (4.2-5.4) Hemoglobin 12.7 g/dL (12.0-16.0) Hematocrit 37.6 % (37-47) Mean Corpuscular Volume 95.9 fL (80-100) Mean Corpuscular Hemoglobin 32.4 pg (25-34) Mean Corpuscular Hemoglobin Concent 33.8 g/dl (32-36) Platelet Count 305 K/uL (130-400) Mean Platelet Volume 10.3 fL (7.4-10.4) Neutrophils (%) (Auto) 85.5 % Lymphocytes (%) (Auto) 5.9 % Monocytes (%) (Auto) 8.0 % Eosinophils (%) (Auto) 0.0 % Basophils (%) (Auto) 0.1 % Neutrophils # (Auto) 19.89 K/uL (1.4-6.5) Lymphocytes # (Auto) 1.37 K/uL (1.2-3.4) Monocytes # (Auto) 1.86 K/uL (0.11-0.59) Eosinophils # (Auto) 0.00 K/uL (0-0.5) Basophils # (Auto) 0.02 K/uL (0-0.2) RDW Standard Deviation 52.2 fL (36.4-46.3) RDW Coefficient of Variation 15.0 % (11.5-14.5) Immature Granulocyte % (Auto) 0.5 % Immature Granulocyte # (Auto) 0.11 K/uL (0.00-0.02) Prothrombin Time 10.7 SECONDS (9.0-12.0) Prothromb Time International Ratio 1.0 (0.9-1.1) Activated Partial Thromboplast Time 27.1 SECONDS (21.0-31.0) Partial Thromboplastin Ratio 1.0 Anion Gap 9.0 mmol/L (3-11) Est Creatinine Clear Calc Drug Dose 35.2 ml/min Estimated GFR () 54.1 Estimated GFR (Non- 46.7 BUN/Creatinine Ratio 14.7 (10-20) Calcium Level 9.2 mg/dl (8.5-10.1) Total Bilirubin 0.7 mg/dl (0.2-1) Aspartate Amino Transf (AST/SGOT) 22 U/L (15-37) Alanine Aminotransferase (ALT/SGPT) 21 U/L (12-78) Alkaline Phosphatase 68 U/L (45-117) Troponin I < 0.015 ng/ml (0-0.045) Total Protein 6.8 gm/dl (6.4-8.2) Albumin 3.1 gm/dl (3.4-5.0) Globulin 3.7 gm/dl (2.5-4.0) Albumin/Globulin Ratio 0.8 (0.9-2) Bedside Lactic Acid Venous 1.27 mmol/L (0.90-1.70) Laboratory results as reviewed by me. Medications Administered Medications (Trade) Dose Ordered Sig/Sana Route Start Time Stop Time Status Last Admin Dose Admin Sodium Chloride 250 ml @ 999 mls/hr Q16M STAT IV 03/27/17 15:33 03/27/17 15:48 DC 03/27/17 15:33 999 MLS/HR Ertapenem (Invanz Iv) 1 gm ONE ONCE IV 03/27/17 16:30 03/27/17 16:31 DC 03/27/17 16:27 1 GM ECG Indication: weakness Rate (beats per minute): 89 Rhythm: normal sinus Findings: Q waves (Inferior), no ectopy ED Course 1528: The patient was evaluated in room B12A. A complete history and physical exam was performed. 1533: NSS 250 ml @ 999 mls/hr IV. 1618: I reevaluated the patient. She is stable. I discussed the test results with her, her nurse, and her daughter. They verbalized agreement of the treatment plan. She will be evaluated for further management. 1622: I spoke with Dr. Grimes of [facility] hospitalist service. We discussed the patient and her results. The patient will be further evaluated by him. 1630: Ertapenem 1 gm IV. Medical Decision This is an 81-year-old female presents with generalized weakness. Differential diagnosis includes sepsis, SIRS, UTI, pyelonephritis, dehydration, metabolic derangement. I did perform a limited focused review of portions of the patient' s old chart on the electronic medical record. The patient has had no recent pertinent visits to this hospital. I did evaluate the patient as noted above. I did obtain history from the patient as well as her daughters. She has a urine culture from the which showed Escherichia coli. IV access was established. The patient was placed on a continuous environmental monitoring technician. I did order and personally review the patient's 12-lead EKG and chest x-ray as described above. I did order and review the patient's blood work as noted in the electronic medical record. Her white blood cell count is over 23,000. I did treat her with normal saline IV. I did order urine analysis but the patient is very dry. I did not wish to wait for the urinalysis prior to giving antibiotics. I did treat the patient with ertapenem IV based on her prior culture. I did discuss the test results with the patient and her family. I did discuss case with the hospitalist and case hardener. Medication Reconcilliation Current Medication List: was personally reviewed by me Blood Pressure Screening Patient's blood pressure: Elevated blood pressure Blood pressure disposition: Referred to PCP Consults Time Called: 1620 Consulting Physician: Dr. Grimes of [facility] hospitalist service Returned Call: 1622 I spoke with him. We discussed the patient and her results. The patient will be further evaluated by him. Impression Primary Impression: UTI (urinary tract infection) Additional Impressions: Failure of outpatient treatment Generalized weakness Scribe Attestation The scribe's documentation has been prepared under my direct and personally reviewed by me in its entirety. I confirm that the note above accurately reflects all work, treatment, procedures, and medical decision making performed by me. Departure Information Dispostion Being Evaluated By Hospitalist Referrals Topher Atris M.D. (PCP) Patient Instructions [facility] Problem Qualifiers Primary Impression: UTI (urinary tract infection) Urinary tract infection type: acute cystitis Hematuria presence: without hematuria Qualified Codes: N30.00 - Acute cystitis without hematuria
[2017-03-27 18:38] VITALS: BP 166/85; PULSE 88; TEMP 37; Ht 152.4 cm; Wt 73.0 kg
[2017-03-27] MEDS: DOCUSATE SODIUM/SENNA 50/8.6MG TAB PO SCH (20:39)
[2017-03-27] MEDS: PHENAZOPYRIDINE HCL 200 MG TAB PO SCH (20:39)
[2017-03-27] MEDS: RANITIDINE HCL 150 MG TAB PO SCH (20:39)
[2017-03-27] MEDS: HEPARIN SOD 5000 UNIT/0.5 ML CARP SQ SCH (20:41)
[2017-03-27] MEDS: PREGABALIN 50 MG CAP PO SCH (22:19)
[2017-03-28] VITALS: BP 157/77; PULSE 96; TEMP 37.9; O2SAT 90
[2017-03-28] MEDS: HEPARIN SOD 5000 UNIT/0.5 ML CARP SQ SCH ×3 (05:30→20:47)
[2017-03-28] MEDS: LEVOTHYROXINE 75 MCG TAB PO SCH (05:34)
[2017-03-28 05:37] LABS: HEMATOCRIT 35.3 % (37-47); MEAN CELL VOLUME 97.2 fL (80-100); MEAN CORPUSCULAR HEMOGLOBIN 30.6 pg (25-34); MEAN CORPUSCULAR HGB CONC 31.4 g/dl (32-36); PLATELET COUNT 280 K/uL (130-400); RED BLOOD COUNT 3.63 M/uL (4.2-5.4); WHITE BLOOD COUNT 18.56 K/uL (4.8-10.8)
[2017-03-28 06:11] LABS: BUN/CREATININE RATIO 14.7 (10-20); CALCIUM 8.3 mg/dl (8.5-10.1); CREATININE 0.99 mg/dl (0.60-1.20); POTASSIUM 3.4 mmol/L (3.5-5.1)
[2017-03-28 07:32] VITALS: BP 133/70; PULSE 87; TEMP 36.7; O2SAT 93
[2017-03-28] MEDS: PHENAZOPYRIDINE HCL 200 MG TAB PO SCH ×3 (07:53→20:48)
[2017-03-28] MEDS: DOCUSATE SODIUM/SENNA 50/8.6MG TAB PO SCH ×2 (07:53→20:49)
[2017-03-28] MEDS: PREGABALIN 50 MG CAP PO SCH ×2 (07:53→20:47)
[2017-03-28] MEDS: MULTIVITAMIN TAB PO SCH (07:54)
[2017-03-28] MEDS: PANTOprazole SOD 40 MG TAB PO SCH (07:54)
[2017-03-28] MEDS: DULOXETINE HCL 60 MG CAP PO SCH (07:54)
[2017-03-28] MEDS ORDERED: POTASSIUM CHLORIDE 20 MEQ TABCR PO ONE (09:00)
[2017-03-28] MEDS ORDERED: INFLUENZA ADMINISTRATION CHARGE ONE (10:00)
[2017-03-28] MEDS ORDERED: INFLUENZA VACCINE HIGH DOSE 65+ 0.5 ML SYR IM. ONE (10:00)
--- NOTE | 2017-03-28 10:15 | INFECT. DISEASE CONSULTATION ---
DATE OF CONSULTATION: 03/28/2017 DATE OF CONSULTATION: 03/28/2017 REQUESTING PHYSICIAN: Dr. Grimes. HISTORY OF PRESENT ILLNESS: This is an 81-year-old female who was admitted to the hospital yesterday after she had weakness and dizziness. She was recently diagnosed with a urinary tract infection and was on an outpatient course of ampicillin. This was discontinued on the . She did see urology and a repeat culture was done. This grew multidrug resistant E. coli. On the she was given Macrobid, which she took for 2 days, but did not have significant improvement and subsequently presented to the ER. She did have a T-max of 37.9 overnight. She is currently afebrile. She was placed on ertapenem. Her initial white blood cell count was 23.2 and this improved to 18.5. She is tolerating ertapenem well. Infectious diseases was consulted for ertapenem use. On my examination, she states she is still feeling weak. She denies any fevers or chills. She has no urinary complaints. She has no abdominal pain. She denies any nausea, vomiting or diarrhea from previous antibiotics. She did have subjective fevers at home, but states this has resolved. She appears to be tolerating the medication well. All remaining review of systems are reviewed and unremarkable. PAST MEDICAL HISTORY: Significant for recurrent urinary tract infections, lupus on steroids, hypertension, hypothyroidism, chronic kidney disease, anxiety, depression, fibromyalgia, urinary incontinence, diverticulosis, kidney stones, GERD, history of C. diff, esophageal stricture, osteoporosis, spinal stenosis, trigeminal neuralgia. PAST SURGICAL HISTORY: Significant for EGD with dilation, lumbar fusion, lithotripsy, cataract surgery, cholecystectomy, hip replacement and hysterectomy. FAMILY HISTORY: Noncontributory. SOCIAL HISTORY: Negative for tobacco use, alcohol or drug use. She lives at home. ALLERGIES: SULFA AND CODEINE. CURRENT MEDICATIONS: Include ertapenem, Cymbalta, multivitamins, prednisone, Protonix, Synthroid, heparin, Pyridium, Lyrica, Senokot, Zantac, Tylenol, Milk of Magnesia, MiraLax, Zofran, baclofen and Ativan. PHYSICAL EXAMINATION: VITAL SIGNS: She is currently afebrile, T-max is 37.9, pulse 87, respiratory rate 16, blood pressure is 133/70, oxygen saturation is 93% on room air. GENERAL: She is awake, alert and oriented x3. She is in no acute distress. HEAD, EYES, EARS, NOSE, AND THROAT: Mucous membranes are dry. HEART: Regular. LUNGS: Clear bilaterally with poor inspiratory effort. ABDOMEN: Soft, nontender, nondistended. There is no suprapubic tenderness. EXTREMITIES: There is no lower extremity edema bilaterally. SKIN: Without rash. LABORATORY STUDIES: CBC today reveals a white blood cell count of 18.5, hemoglobin 11.1, platelets are 280. Chemistry panel reveals a sodium of 137, potassium 3.4, chloride 106, bicarb 25, BUN 15, creatinine 0.9, glucose 92. LFTs are within normal limits. Urinalysis was not performed on this admission. Blood cultures were ordered in the ER and are pending. Her urine culture from the is growing multidrug resistant E. coli which is sensitive to ertapenem, Bactrim, Zosyn, and Macrobid as well as imipenem. She did have a chest x-ray in the ER which was unremarkable. ASSESSMENT AND PLAN: Urinary tract infection. I would continue her on ertapenem. We will follow the results of her blood culture as well. Her leukocytosis has improved. I would recommend a 7-day course of antibiotics. Thank you for this consultation.
--- NOTE | 2017-03-28 10:37 | Progress Note ---
Progress Note Date of Service Mar 28, 2017. Progress Note ID Consult Dictated #[id number] A/P: 1. UTI - MDR E. coli (03/24 outpatient) 2. Leukocytosis -Continue Ertapenem, would give 7 days -Blood culture pending, follow results, if + will need extended abx - 14 days -thank you
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
[2017-03-28 14:51] VITALS: BP 125/72; PULSE 84; TEMP 36.7; O2SAT 92
[2017-03-28 15:57] LABS: MANUAL MICROSCOPIC REQUIRED? YES; REVIEW REQ? NO; URINE COLOR ORANGE
[2017-03-28 15:58] LABS: URINE APPEARANCE CLEAR (CLEAR)
[2017-03-28 16:23] LABS: SULFASALICYLIC ACID NEG (NEG)
[2017-03-28] MEDS: ERTAPENEM IV 1 GM in SODIUM CHLOR 0.9% AD-VAN 50ML 50 ML IV SCH (16:34)
[2017-03-28 16:42] LABS: URINE BACTERIA NEG (NEG)
[2017-03-28] MEDS: RANITIDINE HCL 150 MG TAB PO SCH (20:49)
[2017-03-29 00:04] VITALS: BP 164/80; PULSE 80; TEMP 36.9; O2SAT 91
[2017-03-29 05:03] VITALS: BP 169/78; PULSE 76; TEMP 37; O2SAT 91
[2017-03-29] MEDS: LEVOTHYROXINE 75 MCG TAB PO SCH (05:39)
[2017-03-29] MEDS: HEPARIN SOD 5000 UNIT/0.5 ML CARP SQ SCH ×3 (05:41→20:42)
[2017-03-29 06:54] LABS: HEMATOCRIT 33.1 % (37-47); MEAN CELL VOLUME 96.5 fL (80-100); MEAN CORPUSCULAR HEMOGLOBIN 31.5 pg (25-34); MEAN CORPUSCULAR HGB CONC 32.6 g/dl (32-36); MEAN PLATELET VOLUME 9.8 fL (7.4-10.4); PLATELET COUNT 284 K/uL (130-400); RED BLOOD COUNT 3.43 M/uL (4.2-5.4); WHITE BLOOD COUNT 11.44 K/uL (4.8-10.8)
[2017-03-29 07:26] VITALS: BP 135/77; PULSE 76; TEMP 36.9; O2SAT 90
[2017-03-29 07:30] LABS: BUN/CREATININE RATIO 18.2 (10-20); CALCIUM 8.6 mg/dl (8.5-10.1); CREATININE 0.85 mg/dl (0.60-1.20); POTASSIUM 3.7 mmol/L (3.5-5.1)
[2017-03-29] MEDS: PANTOprazole SOD 40 MG TAB PO SCH (08:24)
[2017-03-29] MEDS: MULTIVITAMIN TAB PO SCH (08:24)
[2017-03-29] MEDS: DULOXETINE HCL 60 MG CAP PO SCH (08:24)
[2017-03-29] MEDS: PHENAZOPYRIDINE HCL 200 MG TAB PO SCH ×3 (08:25→20:43)
[2017-03-29] MEDS: DOCUSATE SODIUM/SENNA 50/8.6MG TAB PO SCH ×2 (08:26→20:44)
[2017-03-29] MEDS: PREGABALIN 50 MG CAP PO SCH ×2 (08:28→20:43)
[2017-03-29] MEDS: POLYETHYLENE (MIRALAX) 17 GM PACK PO PRN (08:32)
[2017-03-29] MEDS: ERTAPENEM IV 1 GM in SODIUM CHLOR 0.9% AD-VAN 50ML 50 ML IV SCH (15:31)
[2017-03-29 15:34] VITALS: BP 143/80; PULSE 78; TEMP 36.7; O2SAT 93
--- NOTE | 2017-03-29 18:33 | Progress Note ---
Subjective Date of Service: Mar 29, 2017. Subjective Pt evaluation today including: conversation w/ patient, physical exam, chart review, lab review feeling better, still fatigued. discussed need for rehab, she reluctantly agrees. no other new problems, all other ROS otherwise negative except for as above Problem List Medical Problems: (1) Acute kidney injury Status: Acute (2) Altered mental state Status: Acute (3) Compression fx, thoracic spine Status: Acute (4) Failure of outpatient treatment Status: Acute (5) Generalized weakness Status: Acute (6) Sepsis secondary to UTI Status: Acute (7) UTI (urinary tract infection) Status: Acute Surgical Problems: (1) History of esophageal dilatation Status: Chronic Review of Systems all other ROS otherwise negative except for as above Objective Vital Signs Date Time Temp Pulse Resp B/P (MAP) Pulse Ox O2 Delivery O2 Flow Rate FiO2 03/29/17 16:00 Room Air 03/29/17 15:34 36.7 78 18 143/80 (101) 93 Room Air 03/29/17 07:28 Room Air 03/29/17 07:26 36.9 76 20 135/77 (96) 90 Room Air 03/29/17 05:03 37.0 76 18 169/78 (108) 91 Room Air 03/29/17 00:04 36.9 80 16 164/80 (108) 91 Room Air 03/29/17 00:00 Room Air Physical Exam General Appearance: no apparent distress Eyes: EOMI ENT: hearing grossly normal Neck: trachea midline Respiratory/Chest: no respiratory distress, no accessory muscle use Extremities: normal range of motion Neurologic/Psychiatric: panel assembler II-XII nml as tested, alert Skin: normal color, warm/dry Laboratory Results Last 24 Hours Test 03/29/17 06:28 White Blood Count 11.44 K/uL Red Blood Count 3.43 M/uL Hemoglobin 10.8 g/dL Hematocrit 33.1 % Mean Corpuscular Volume 96.5 fL Mean Corpuscular Hemoglobin 31.5 pg Mean Corpuscular Hemoglobin Concent 32.6 g/dl RDW Standard Deviation 52.3 fL RDW Coefficient of Variation 14.7 % Platelet Count 284 K/uL Mean Platelet Volume 9.8 fL Sodium Level 139 mmol/L Potassium Level 3.7 mmol/L Chloride Level 109 mmol/L Carbon Dioxide Level 23 mmol/L Anion Gap 7.0 mmol/L Blood Urea Nitrogen 15 mg/dl Creatinine 0.85 mg/dl Est Creatinine Clear Calc Drug Dose 45.5 ml/min Estimated GFR () 74.0 Estimated GFR (Non- 63.8 BUN/Creatinine Ratio 18.2 Random Glucose 84 mg/dl Calcium Level 8.6 mg/dl Assessment and Plan Recurrent MDR UTI: - Ertapenem 1 gm IV qd- started on 03/27 - Consult ID, appreciate recommendations -- Recommend continue IV Ertapenem x7 days, if BCx+ then continue x14 days - Continue Pyridium 200 mg PO TID prn - BCx pending - overall improved. stable for rehab weakness/deconditioning -PT/OT eval and treat. will need rehab or SNF, reluctantly amenable, stable for discharge when arranged Hypokalemia resolved Hyponatremia- RESOLVED: Treated w/ IVF SLE: Continue Prednisone 10 mg PO QAM HTN- STABLE Hypothyroidism: Continue Synthroid 75 mcg PO qd CKD, stage III- STABLE Anxiety and depression: Continue Cymbalta 60 mg PO qd and Ativan 0.5 mg PO TID PRN anxiety Fibromyalgia, chronic pain: Continue Lyrica 50 mg PO BID GERD: Nexium converted to Protonix 40 mg PO qd. Continue Zantac 300 mg PO hs DVT prophylaxis: Heparin 5000 units SC q12h Code Status: LEVEL V, DNR Dispo: for snf/rehab - stable once bed available
[2017-03-29] MEDS: RANITIDINE HCL 150 MG TAB PO SCH (20:45)
[2017-03-30 00:06] VITALS: BP 165/81; PULSE 76; TEMP 36.3; O2SAT 90
[2017-03-30] MEDS: HEPARIN SOD 5000 UNIT/0.5 ML CARP SQ SCH ×3 (05:39→19:52)
[2017-03-30] MEDS: LEVOTHYROXINE 75 MCG TAB PO SCH (05:39)
[2017-03-30 05:55] LABS: HEMATOCRIT 36.3 % (37-47); MEAN CELL VOLUME 95.8 fL (80-100); MEAN CORPUSCULAR HEMOGLOBIN 30.9 pg (25-34); MEAN CORPUSCULAR HGB CONC 32.2 g/dl (32-36); PLATELET COUNT 319 K/uL (130-400); RED BLOOD COUNT 3.79 M/uL (4.2-5.4); WHITE BLOOD COUNT 9.32 K/uL (4.8-10.8)
[2017-03-30 06:28] LABS: BUN/CREATININE RATIO 19.3 (10-20); CREATININE 0.99 mg/dl (0.60-1.20); POTASSIUM 4.1 mmol/L (3.5-5.1)
[2017-03-30 07:48] VITALS: BP 167/83; PULSE 78; TEMP 36.6; O2SAT 91
[2017-03-30] MEDS: PHENAZOPYRIDINE HCL 200 MG TAB PO SCH ×3 (08:38→19:49)
[2017-03-30] MEDS: DULOXETINE HCL 60 MG CAP PO SCH (08:39)
[2017-03-30] MEDS: MULTIVITAMIN TAB PO SCH (08:39)
[2017-03-30] MEDS: PREGABALIN 50 MG CAP PO SCH ×2 (08:39→19:52)
[2017-03-30] MEDS: DOCUSATE SODIUM/SENNA 50/8.6MG TAB PO SCH ×2 (08:39→19:49)
--- NOTE | 2017-03-30 15:35 | Progress Note ---
Subjective Date of Service: Mar 30, 2017. Subjective Pt evaluation today including: conversation w/ patient, conversation w/ family , physical exam, chart review, lab review, review of inpatient medication list feeling ok still mildly confused but far better no new complaints dtr present updated on care thus far she expressed understanding plan for rehab/SNF - awaiting insurance approval, pt reluctantly willing (dtr quite pleased that this is the plan) and pt stable for transfer whenever available Problem List Medical Problems: (1) Acute kidney injury Status: Acute (2) Altered mental state Status: Acute (3) Compression fx, thoracic spine Status: Acute (4) Failure of outpatient treatment Status: Acute (5) Generalized weakness Status: Acute (6) Sepsis secondary to UTI Status: Acute (7) UTI (urinary tract infection) Status: Acute Surgical Problems: (1) History of esophageal dilatation Status: Chronic Review of Systems all other ROS otherwise negative except for as above Objective Vital Signs Date Time Temp Pulse Resp B/P (MAP) Pulse Ox O2 Delivery O2 Flow Rate FiO2 03/30/17 08:00 Room Air 03/30/17 07:48 36.6 78 16 167/83 (111) 91 Room Air 03/30/17 00:06 36.3 76 20 165/81 (109) 90 Room Air 03/30/17 00:00 Room Air 03/29/17 16:00 Room Air 03/29/17 15:34 36.7 78 18 143/80 (101) 93 Room Air Physical Exam General Appearance: no apparent distress Eyes: EOMI ENT: hearing grossly normal Neck: trachea midline Respiratory/Chest: no respiratory distress, no accessory muscle use Extremities: normal range of motion Neurologic/Psychiatric: beck tender II-XII nml as tested, alert, normal mood/affect Skin: normal color, warm/dry Laboratory Results Last 24 Hours Test 03/30/17 05:16 White Blood Count 9.32 K/uL Red Blood Count 3.79 M/uL Hemoglobin 11.7 g/dL Hematocrit 36.3 % Mean Corpuscular Volume 95.8 fL Mean Corpuscular Hemoglobin 30.9 pg Mean Corpuscular Hemoglobin Concent 32.2 g/dl RDW Standard Deviation 50.6 fL RDW Coefficient of Variation 14.5 % Platelet Count 319 K/uL Mean Platelet Volume 10.0 fL Sodium Level 140 mmol/L Potassium Level 4.1 mmol/L Chloride Level 108 mmol/L Carbon Dioxide Level 23 mmol/L Anion Gap 9.0 mmol/L Blood Urea Nitrogen 19 mg/dl Creatinine 0.99 mg/dl Est Creatinine Clear Calc Drug Dose 39.1 ml/min Estimated GFR () 61.5 Estimated GFR (Non- 53.1 BUN/Creatinine Ratio 19.3 Random Glucose 81 mg/dl Calcium Level 9.0 mg/dl Assessment and Plan Recurrent MDR UTI: - Ertapenem 1 gm IV daily started on 03/27 - Consult ID, appreciate recommendations -- Recommend continue IV Ertapenem x7 days, if BCx+ then continue x14 days - Continue Pyridium 200 mg PO TID prn - BCx pending - overall improved. stable for rehab, waiting for bed weakness/deconditioning -PT/OT eval and treat. will need rehab or SNF, awaiting approvals stable to go Hypokalemia resolved Hyponatremia- RESOLVED: Treated w/ IVF SLE: Continue Prednisone 10 mg PO QAM HTN- STABLE Hypothyroidism: Continue Synthroid 75 mcg PO qd CKD, stage III- STABLE Anxiety and depression: Continue Cymbalta 60 mg PO qd and Ativan 0.5 mg PO TID PRN anxiety Fibromyalgia, chronic pain: Continue Lyrica 50 mg PO BID GERD: Nexium converted to Protonix 40 mg PO qd. Continue Zantac 300 mg PO hs DVT prophylaxis: Heparin 5000 units SC q12h Code Status: LEVEL V, DNR Dispo: for snf/rehab - stable once bed available
[2017-03-30 15:37] VITALS: BP 126/78; PULSE 84; TEMP 36.7; O2SAT 94
[2017-03-30] MEDS: ERTAPENEM IV 1 GM in SODIUM CHLOR 0.9% AD-VAN 50ML 50 ML IV SCH (16:24)
[2017-03-30] MEDS: RANITIDINE HCL 150 MG TAB PO SCH (19:49)
[2017-03-30 23:59] VITALS: BP 189/82; PULSE 78; TEMP 36.9; O2SAT 92
[2017-03-31] VITALS (7 sets, daily range): BP systolic 129–157; BP diastolic 69–82; PULSE 71–80; TEMP 36.5–36.9; O2SAT 91–92
[2017-03-31] MEDS: LEVOTHYROXINE 75 MCG TAB PO SCH (05:43)
[2017-03-31] MEDS: HEPARIN SOD 5000 UNIT/0.5 ML CARP SQ SCH ×3 (05:43→21:59)
[2017-03-31] MEDS: MULTIVITAMIN TAB PO SCH (07:53)
[2017-03-31] MEDS: DULOXETINE HCL 60 MG CAP PO SCH (07:53)
[2017-03-31] MEDS: PHENAZOPYRIDINE HCL 200 MG TAB PO SCH ×3 (07:54→21:56)
[2017-03-31] MEDS: DOCUSATE SODIUM/SENNA 50/8.6MG TAB PO SCH ×2 (07:54→21:56)
[2017-03-31] MEDS: PREGABALIN 50 MG CAP PO SCH ×2 (07:57→21:55)
--- NOTE | 2017-03-31 08:34 | Progress Note ---
Subjective Date of Service: Mar 31, 2017. Subjective blood cultures negative, tolerating ertapenem. wbc nml. afebrile. awaiting placement at snf when bed available. Problem List Medical Problems: (1) Acute kidney injury Status: Acute (2) Altered mental state Status: Acute (3) Compression fx, thoracic spine Status: Acute (4) Failure of outpatient treatment Status: Acute (5) Generalized weakness Status: Acute (6) Sepsis secondary to UTI Status: Acute (7) UTI (urinary tract infection) Status: Acute Surgical Problems: (1) History of esophageal dilatation Status: Chronic Objective Vital Signs Date Time Temp Pulse Resp B/P (MAP) Pulse Ox O2 Delivery O2 Flow Rate FiO2 03/31/17 08:06 36.9 80 20 138/70 (92) 91 Room Air 03/31/17 07:50 36.5 71 18 157/78 (104) 91 Room Air 03/31/17 01:27 154/82 (106) 03/31/17 00:00 Room Air 03/30/17 23:59 36.9 78 18 189/82 (117) 92 Room Air 03/30/17 20:00 Room Air 03/30/17 16:03 Room Air 03/30/17 15:37 36.7 84 18 126/78 (94) 94 Assessment and Plan (1) UTI (urinary tract infection) Assessment & Plan: continue ertapenem for 7 da7s, stop date 04/02. blood cultures negative, leukocytosis resolved. afebrile. ok for d/c from ID standpoint when otherwise stable. Problem Qualifiers (1) UTI (urinary tract infection): Urinary tract infection type: acute cystitis Hematuria presence: without hematuria Qualified Codes: N30.00 - Acute cystitis without hematuria
[2017-03-31] MEDS: POLYETHYLENE (MIRALAX) 17 GM PACK PO PRN (09:07)
--- NOTE | 2017-03-31 14:09 | Hospitalist Progress Note ---
Hospitalist Progress Note Date of Service Mar 31, 2017. (Joselin Fuller .MIKAYLA) Subjective Pt evaluation today including: conversation w/ patient, physical exam, chart review, lab review, review of inpatient medication list Pain: None PO Intake: Tolerating PO diet Voiding: no voiding problems Patient reports feeling well, although she admits to generalized weakness and fatigue. She complains of some shortness of breath and wheezing but states that these are her baseline. The patient denies fevers, chills, sweats, chest pain, palpitations, claudication, cough, nausea, vomiting, abdominal pain, dysuria, hematuria, urinary retention, paralysis, weakness, numbness and tingling. Additional Comments: See HPI for pertinent positives and negatives. All other systems reviewed and negative. (Joselin Fuller PA-C) Objective Vital Signs Date Time Temp Pulse Resp B/P (MAP) Pulse Ox O2 Delivery O2 Flow Rate FiO2 03/31/17 09:14 91 Room Air 03/31/17 08:06 36.9 80 20 138/70 (92) 91 Room Air 03/31/17 07:50 36.5 71 18 157/78 (104) 91 Room Air 03/31/17 07:45 91 Room Air 03/31/17 01:27 154/82 (106) 03/31/17 00:00 Room Air 03/30/17 23:59 36.9 78 18 189/82 (117) 92 Room Air 03/30/17 20:00 Room Air 03/30/17 16:03 Room Air 03/30/17 15:37 36.7 84 18 126/78 (94) 94 (Joselin Fuller PA-C) Physical Exam Notes: General appearance: +Obese. Well-developed, well-nourished, no apparent distress Head: Normocephalic, atraumatic Eyes: Normal inspection, PERRL, EOMI ENT: Normal ENT inspection, hearing grossly normal, pharynx normal Neck: Supple, no JVD, trachea midline Respiratory/Chest: Lungs clear to auscultation, normal breath sounds, no respiratory distress Cardiovascular: Regular rate & rhythm, no gallop, no murmur Abdomen/GI: +Suprapubic area mildly TTP. Normal bowel sounds, soft Extremities/Musculoskeletal: Normal inspection, no calf tenderness, no pedal edema Neurological/Psych: Alert, normal mood/affect, oriented x 3 Skin: Normal color, warm/dry, no rash (Joselin Fuller .MIKAYLA) Assessment and Plan 81 y/o female with a history of recurrent UTI, SLE, HTN, hypothyroidism, CKD stage III, anxiety and depression, fibromyalgia and urinary incontinence who presented to the ED on 03/27 with urinary tract infection, confusion, weakness and dizziness. Pt arrived to the ED afebrile, VSS. No hypotension or hypoxia. Pt alert and oriented x 3, no longer confused. WBC 23.25. Labs otherwise grossly unremarkable. CXR no acute disease. EKG no ischemic changes. Review of outpatient records shows positive urine culture from 03/24 with multi drug resistant E. Coli. Sensitive to Bactrim, ertapenem, imipenem and Zosyn. Pt allergic to Bactrim. She has been on ertapenem in the past. Pt given first dose ertapenem in ED along with 250 cc NSS bolus. Recurrent MDR UTI--improving -Admit to med/surg as vital signs stable -Ertapenem 1 gm IV qd. Day # 5 of 7 -Consult infectious disease, appreciate recs: Continue ertapenem for total of 7 days -Blood cultures NGTD x 2 -Continue Pyridium 200 mg PO TID prn -Leukocytosis resolved, 9.32 on 03/31 SLE -Continue Prednisone 10 mg PO qam HTN--stable Hypothyroidism -Continue Synthroid 75 mcg PO qd CKD stage III--stable -Creatinine stable, at baseline Anxiety and depression -Continue Cymbalta 60 mg PO qd and Ativan 0.5 mg PO TID prn anxiety Fibromyalgia, chronic pain -Continue Lyrica 50 mg PO BID GERD -Nexium converted to Protonix 40 mg PO qd. Continue Zantac 300 mg PO hs DVT prophylaxis -Heparin 5000 units SC q12h -CLARA zepeda and SCDs Code Status -Level V, DO NOT RESUSCITATE Dispo -Pt over 79 and lives alone -PT/OT evaluate and treat, case management consulted -Recommend rehab. Awaiting determination from [facility] (Joselin Fuller .MIKAYLA) Reviewed: Pt Seen/Exam by Me (Rosalva Jade MD) History Physician Produce Wrapper Supervision Note: I interviewed and examined the patient. Discussed with MIKEY Fuller and agree with findings and plan as documented in the note. Any exceptions or clarifications are listed here: Pt feeling much better, is embarrassed about her chronic urinary incontinence. Afebrile, leukocytosis resolved. Vitals reviewed NAD,AAOx3 RRR no mgr CTAB no wcr Abd +BS soft NT ND Ext no edema SKin no rashes 81 yo female with MDR E. coli with sepsis and encephalopathy. Much improved. Continue ertapenem for total 7 days, follow BCxs. -hopeful for dc tomorrow to SNF if bed available -Urinary incontinence-sounds like she has had multiple modalities of treatment including tibial nerve stim. Suggested acupuncture or bladder procedure with Urology Documented By: Rosalva Jade (Rosalva Jade MD)
[2017-03-31] MEDS: ERTAPENEM IV 1 GM in SODIUM CHLOR 0.9% AD-VAN 50ML 50 ML IV SCH (15:41)
[2017-03-31] MEDS: RANITIDINE HCL 150 MG TAB PO SCH (21:56)
[2017-04-01] MEDS: LEVOTHYROXINE 75 MCG TAB PO SCH (05:50)
[2017-04-01] MEDS: HEPARIN SOD 5000 UNIT/0.5 ML CARP SQ SCH ×2 (05:52→13:54)
[2017-04-01 07:50] VITALS: BP 128/78; PULSE 77; TEMP 37; O2SAT 91
[2017-04-01 07:52] LABS: HEMATOCRIT 36.6 % (37-47); MEAN CELL VOLUME 96.6 fL (80-100); MEAN CORPUSCULAR HEMOGLOBIN 30.3 pg (25-34); MEAN CORPUSCULAR HGB CONC 31.4 g/dl (32-36); PLATELET COUNT 365 K/uL (130-400); RED BLOOD COUNT 3.79 M/uL (4.2-5.4); WHITE BLOOD COUNT 9.93 K/uL (4.8-10.8)
[2017-04-01 08:19] LABS: BUN/CREATININE RATIO 22.2 (10-20); CALCIUM 9.2 mg/dl (8.5-10.1); CREATININE 1.1 mg/dl (0.60-1.20)
[2017-04-01] MEDS: MULTIVITAMIN TAB PO SCH (08:25)
[2017-04-01] MEDS: DULOXETINE HCL 60 MG CAP PO SCH (08:26)
[2017-04-01] MEDS: DOCUSATE SODIUM/SENNA 50/8.6MG TAB PO SCH (08:26)
[2017-04-01] MEDS: PREGABALIN 50 MG CAP PO SCH (08:28)
[2017-04-01] MEDS: POLYETHYLENE (MIRALAX) 17 GM PACK PO PRN (08:28)
[2017-04-01] MEDS: PHENAZOPYRIDINE HCL 200 MG TAB PO SCH ×2 (09:21→13:54)
[2017-04-01] MEDS ORDERED: LORA-741 PO (10:06)
[2017-04-01] MEDS ORDERED: ERTA1INJ IV (10:06)
--- NOTE | 2017-04-01 10:20 | Discharge Instructions ---
Discharge Instructions Date of Service Apr 01, 2017. Admission Reason for Admission: Urinary Tract Infection Discharge Discharge Diagnosis / Problem: UTI Discharge Goals Goal(s): Improve disease control, Diagnostic testing, Therapeutic intervention Activity Recommendations Activity Level: Assistance Required Therapies: Physical Therapy, Occupational Therapy Exercise/Sports Limitations: gradually increase as tolerated Shower/Bathe: no limitations . Additional Information Patient informed of condition: Yes Advance Directives: Yes DNR: Yes Level of Care: Skilled Communicable Disease: No Prognosis: Improving Oxygen at (LPM): N/A Blakely Catheter: No Instructions / Follow-Up Instructions / Follow-Up This pt is an 81 y/o female with a history of recurrent UTI and urinary incontinence, SLE on chronic prednisone, HTN, hypothyroidism, CKD stage III, anxiety and depression, fibromyalgia who presented to the ED on 03/27 with urinary tract infection, confusion, weakness and dizziness. Pt arrived to the ED afebrile, VSS. No hypotension or hypoxia. Pt alert and oriented x 3, no longer confused. WBC 23.25. Labs otherwise grossly unremarkable. CXR no acute disease. EKG no ischemic changes. Review of outpatient records shows positive urine culture from 03/24 with multi drug resistant E. Coli. Sensitive to Bactrim, macrobid, ertapenem, amikacin, imipenem and Zosyn. Pt allergic to Bactrim. She has been on ertapenem in the past. Pt given first dose ertapenem in ED along with 250 cc NSS bolus. She had been on Macrobid as an outpatient, but became encephalopathic prior to it taking effect. Recurrent MDR UTI--improving. ID consultation obtained and recommended ertapenem x 7 days. BCxs remain no growth -complete a course of Ertapenem 1 gm IV qd. Today is Day # 6 of 7 -received Pyridium 200 mg PO TID prn -Leukocytosis resolved, 9.9 on day of discharge Urinary incontinence, OAB-presents as a very distressing problem for her. SHe is actively followed by Urology and has a planned cystoscopy for this week with Dr. Jackson of Urology SLE-stable -Continue Prednisone 10 mg PO qam HTN--stable Hypothyroidism -Continue Synthroid 75 mcg PO qd CKD stage III--stable -Creatinine stable, at baseline Anxiety and depression -Continue Cymbalta 60 mg PO qd and Ativan 0.5 mg PO TID prn anxiety Fibromyalgia, chronic pain -Continue Lyrica 50 mg PO BID GERD -Nexium converted to Protonix 40 mg PO qd. Continue Zantac 300 mg PO hs Code Status -Level V, DO NOT RESUSCITATE Dispo to [facility] today Current Hospital Diet Patient's current hospital diet: AHA Diet (Heart Healthy) Discharge Diet Recommended Diet: AHA Diet (Heart Healthy) Procedures Procedures Performed: Chest xray Pending Studies Studies pending at discharge: yes List of pending studies: Final Blood cultures from 03/27/17 Physician Orders On Transfer Special Precautions: None Dressing Changes: PIV in right forearm IV Therapy: Ertapenem x 2 more days Vital Signs: Daily Weigh: Daily Additional Orders: Needs follow up with Urology as planned for this week-Dr. Jackson PCP follow up within 1-2 weeks after discharge from [facility] Discussion: Not Applicable Laboratory Results Last 24 Hours Test 04/01/17 06:59 White Blood Count 9.93 K/uL Red Blood Count 3.79 M/uL Hemoglobin 11.5 g/dL Hematocrit 36.6 % Mean Corpuscular Volume 96.6 fL Mean Corpuscular Hemoglobin 30.3 pg Mean Corpuscular Hemoglobin Concent 31.4 g/dl RDW Standard Deviation 51.1 fL RDW Coefficient of Variation 14.5 % Platelet Count 365 K/uL Mean Platelet Volume 10.0 fL Sodium Level 138 mmol/L Potassium Level 4.0 mmol/L Chloride Level 105 mmol/L Carbon Dioxide Level 22 mmol/L Anion Gap 11.0 mmol/L Blood Urea Nitrogen 24 mg/dl Creatinine 1.10 mg/dl Est Creatinine Clear Calc Drug Dose 35.2 ml/min Estimated GFR () 54.1 Estimated GFR (Non- 46.7 BUN/Creatinine Ratio 22.2 Random Glucose 80 mg/dl Calcium Level 9.2 mg/dl Medical Emergencies . Who to Call and When: Medical Emergencies: If at any time you feel your situation is an emergency, please call 911 immediately. . Non-Emergent Contact Non-Emergency issues call your: Primary Care Provider, Urologist Call Non-Emergent contact if: you have a fever, you have any medication questions . . "Provider Documentation" section prepared by Rosalva Jade. . Core Measure Problem Core Measures: None [place] Drug Monitoring Program Search Results: patient reviewed within database, no issues identified
--- NOTE | 2017-04-01 10:25 | Discharge Summary ---
Discharge Summary Date of Service Apr 01, 2017. Discharge Summary Admission Date: Mar 27, 2017 at 17:09 Discharge Date: Apr 01, 2017 Discharge Disposition: senior care facility ([facility]) Principal Diagnosis: MDR UTI Problems/Secondary Diagnoses: This pt is an 81 y/o female with a history of recurrent UTI and urinary incontinence, SLE on chronic prednisone, HTN, hypothyroidism, CKD stage III, anxiety and depression, fibromyalgia who presented to the ED on 03/27 with urinary tract infection, confusion, weakness and dizziness. Pt arrived to the ED afebrile, VSS. No hypotension or hypoxia. Pt alert and oriented x 3, no longer confused. WBC 23.25. Labs otherwise grossly unremarkable. CXR no acute disease. EKG no ischemic changes. Review of outpatient records shows positive urine culture from 03/24 with multi drug resistant E. Coli. Sensitive to Bactrim, macrobid, ertapenem, amikacin, imipenem and Zosyn. Pt allergic to Bactrim. She has been on ertapenem in the past. Pt given first dose ertapenem in ED along with 250 cc NSS bolus. She had been on Macrobid as an outpatient, but became encephalopathic prior to it taking effect. Recurrent MDR UTI--improving. ID consultation obtained and recommended ertapenem x 7 days. BCxs remain no growth -complete a course of Ertapenem 1 gm IV qd. Today is Day # 6 of 7 -received Pyridium 200 mg PO TID prn -Leukocytosis resolved, 9.9 on day of discharge Urinary incontinence, OAB-presents as a very distressing problem for her. SHe is actively followed by Urology and has a planned cystoscopy for this week with Dr. Jackson of Urology SLE-stable -Continue Prednisone 10 mg PO qam HTN--stable Hypothyroidism -Continue Synthroid 75 mcg PO qd CKD stage III--stable -Creatinine stable, at baseline Anxiety and depression -Continue Cymbalta 60 mg PO qd and Ativan 0.5 mg PO TID prn anxiety Fibromyalgia, chronic pain -Continue Lyrica 50 mg PO BID GERD -Nexium converted to Protonix 40 mg PO qd. Continue Zantac 300 mg PO hs Code Status -Level V, DO NOT RESUSCITATE Dispo to [facility] today Immunizations: Have You Had Influenza Vaccine: Yes Influenza Vaccine Date: Apr 04, 2015 History of Tetanus Vaccine?: Yes Tetanus Immunization Date: Dec 29, 2007 History of Pneumococcal: Yes Pneumococcal Date: Jun 19, 2007 Procedures: Chest xray Consultations: Infectious Disease Medication Reconciliation New Medications: Ertapenem Sodium (Invanz) 1 Gm Inj 1 GM IV Q24H for 2 Days, VIAL Last dose at 1600 on 04/02/17 Continued Medications: Baclofen (Lioresal) 10 Mg Tab 10 MG PO HS PRN for Muscle Spasms, TAB PT TAKES 10 MG AT HS EVERY DAY, MAY TAKE UP TO 3 DOSES PER 24 HOURS. Biotin (Biotin) 1 Mg Cap 1 CAP PO LUNCH Calcium Carbonate-Vitamin D (Calcium + D) 1 Tab Tab 2 TABS PO LUNCH Cyanocobalamin (Vitamin B-12) 1,000 Mcg Sub 1000 MCG PO DAILY Duloxetine Hcl (Cymbalta) 60 Mg Cap 60 MG PO QAM Esomeprazole Magnesium (Nexium) 40 Mg Capcr 40 MG PO QAM Lactobacillus (Probiotic) 1 Cap Cap 1 CAP PO HS Levothyroxine Sodium (Synthroid) 75 Mcg Tab 75 MCG PO QAM Lorazepam (Ativan) 0.5 Mg Tab 0.5 MG PO Q8 PRN for Anxiety, #6 TAB (This prescription has been renewed) Melatonin (Melatonin) 1 Mg Tab 1 MG PO HS PRN for Sleep Misc Natural Products (Osteo Bi-Flex Advanced Do) 1 Tab Tab 1 TAB PO QAM Multivitamin (Multivitamin) Tab 1 TAB PO LUNCH Polyethylene Glycol 3350 (Miralax) 1 Pow Pow 17 GM PO DAILY, #527 GM Prednisone (Prednisone) 5 Mg Tab 10 MG PO LUNCH Pregabalin (Lyrica) 50 Mg Cap 50 MG PO BID Ranitidine (Zantac) 300 Mg Tab 300 MG PO HS Sennosides-Docusate Sodium (Stool Softener) 1 Tab Tab 1 TAB PO BID Discontinued Medications: Nitrofurantoin Macrocrystal (Nitrofurantoin) 100 Mg Cap 100 MG PO BID STARTED 03/26/17 FOR 10 DAYS. Phenazopyridine HCl (Pyridium) 200 Mg Tab 200 MG PO TID for Bladder Pain, #6 TAB Referrals At Discharge Follow up Referrals: Physician Referral - Within 1-2 Weeks with Topher Artis M.D. Urologist Referral - Within 1-2 Weeks with Martin Jackson M.D. Discharge Exam Feeling tired as she did not sleep much last night from urinary incontinence and changing her bed linens. Very frustrated with her incontinence. Phys Exam: Vitals reviewed NAD,AAOx3 RRR no mgr CTAB no wcr Abd +BS soft NT ND Ext no edema SKin no rashes Review of Systems: Constitutional: No fever, No chills Eyes: No problem reported ENT: No problem reported Respiratory: No shortness of breath Cardiovascular: No chest pain Abdomen: No pain, No nausea, No vomiting Musculoskeletal: No problem reported Genitourinary - Female: + urinary incontinence Neurologic: No problem reported Psychiatric: No problem reported Endocrine: No problem reported Hematologic / Lymphatic: No problem reported Integumentary: No problem reported Hospital Course This pt is an 81 y/o female with a history of recurrent UTI and urinary incontinence, SLE on chronic prednisone, HTN, hypothyroidism, CKD stage III, anxiety and depression, fibromyalgia who presented to the ED on 03/27 with urinary tract infection, confusion, weakness and dizziness. Pt arrived to the ED afebrile, VSS. No hypotension or hypoxia. Pt alert and oriented x 3, no longer confused. WBC 23.25. Labs otherwise grossly unremarkable. CXR no acute disease. EKG no ischemic changes. Review of outpatient records shows positive urine culture from 03/24 with multi drug resistant E. Coli. Sensitive to Bactrim, macrobid, ertapenem, amikacin, imipenem and Zosyn. Pt allergic to Bactrim. She has been on ertapenem in the past. Pt given first dose ertapenem in ED along with 250 cc NSS bolus. She had been on Macrobid as an outpatient, but became encephalopathic prior to it taking effect. Recurrent MDR UTI--improving. ID consultation obtained and recommended ertapenem x 7 days. BCxs remain no growth -complete a course of Ertapenem 1 gm IV qd. Today is Day # 6 of 7 -received Pyridium 200 mg PO TID prn -Leukocytosis resolved, 9.9 on day of discharge Urinary incontinence, OAB-presents as a very distressing problem for her. SHe is actively followed by Urology and has a planned cystoscopy for this week with Dr. Jackson of Urology SLE-stable -Continue Prednisone 10 mg PO qam HTN--stable Hypothyroidism -Continue Synthroid 75 mcg PO qd CKD stage III--stable -Creatinine stable, at baseline Anxiety and depression -Continue Cymbalta 60 mg PO qd and Ativan 0.5 mg PO TID prn anxiety Fibromyalgia, chronic pain -Continue Lyrica 50 mg PO BID GERD -Nexium converted to Protonix 40 mg PO qd. Continue Zantac 300 mg PO hs Code Status -Level V, DO NOT RESUSCITATE Dispo to [facility] today Total Time Spent: Greater than 30 minutes This includes examination of the patient, discharge planning, medication reconciliation, and communication with other providers. Discharge Instructions Please refer to the electronic Patient Visit Report (Discharge Instructions) for additional information. Follow-Up Urology this week PCP within 1-2 weeks after dc from [facility] Additional Copies To Topher Artis M.D.
[2017-04-01 10:50] VITALS: BP 128/78; PULSE 77; TEMP 37; O2SAT 91
== END 2017-04-01 16:39 | DRG 690 ==
LOC: C.EDB 14:51 → EDBD 14:51 → C.MED 17:09 → ENRESERV 18:00
PROVIDERS: ADMIT Hospitalist; ATTEND Family Medicine
DX: N39.0 Urinary tract infection, site not specified (principal); N18.3 Chronic kidney disease, stage 3 (moderate); Z66 Do not resuscitate; F32.9 Major depressive disorder, single episode, unspecified; I12.9 Hypertensive chronic kidney disease with stage 1 through stage 4 chronic kidney disease, or unspecified chronic kidney disease; K21.9 Gastro-esophageal reflux disease without esophagitis; M81.0 Age-related osteoporosis without current pathological fracture; Z96.649 Presence of unspecified artificial hip joint; E03.9 Hypothyroidism, unspecified; Z87.440 Personal history of urinary (tract) infections; Z90.710 Acquired absence of both cervix and uterus; Z80.9 Family history of malignant neoplasm, unspecified

== ENCOUNTER 2017-04-27 16:02 | Inpatient (IN) | payer OTHER ==
[~2017-04-27] VITALS: Ht 154.9 cm; Wt 72.8 kg
[~2017-04-27 16:02] MED LIST changes: -COLON HEALTH PO; +CYAN100048 PO; -CYM/30 PO; +LACT1CAP6 PO; +MELA1TAB4 PO; -MELA3TAB12; +POLY335019 PO
[2017-04-27] MEDS ORDERED: SODIUM CHLORIDE 0.9% 1000ML 500 ML IV ONE (16:42)
--- NOTE | 2017-04-27 16:48 | EMERGENCY ROOM VISIT NOTE ---
History Report prepared by Girish: Syed Cheng Under the Supervision of: Dr. Venkat Houston M.D. First contact with patient: 16:36 Chief Complaint: DIZZY Stated Complaint: DIZZINESS, WEAK History of Present Illness The patient is a 81 year old female who presents to the Emergency Room with complaints of intermittent dizziness that began 1 week ago. She was discharged from rehabilitation 8 days ago and was doing very well. The next day, she began to have dizziness that would come and go throughout the week. She has a past medical history of UTI's, and her daughters believe that she is presenting similarly to her previous UTI episodes. She denies any urinary burning, but she is incontinent. She denies any cough, sore throat, or diarrhea. She is having some mild suprapubic abdominal pain as well. She notes that her right ear has been bothering her recently. Source of History: patient Onset: 1 week ago Position: other (global) Symptom Intensity: moderate Quality: other (Dizziness) Timing: intermittent Associated Symptoms: + abdominal pain (suprapubic), + urinary symptoms ( Incontinence, no burning/pain), No sorethroat, No cough, No diarrhea Review of Systems See HPI for pertinent positives & negatives. A total of 10 systems reviewed and were otherwise negative. Past Medical & Surgical Medical Problems: (1) Benign hypertension (2) Chronic kidney disease stage 3 (3) Depression (4) Diverticular disease of colon (5) Encephalopathy (6) Gastroesophageal reflux disease (7) History of calculus of kidney (8) History of Clostridium difficile infection (9) History of esophageal stricture (10) Hypothyroidism (11) Osteoporosis (12) Recurrent UTI (13) S/P ECT (electroconvulsive therapy) (14) Spinal stenosis (15) Spondylolisthesis (16) Systemic lupus erythematosus (17) Trigeminal neuralgia (18) Urinary incontinence (19) Urinary tract infection Surgical Problems: (1) History of esophageal dilatation (2) S/P lumbar fusion (3) Stat post lithotripsy (4) Status post cataract extraction (5) Status post cholecystectomy (6) Status post hip replacement (7) Status post hysterectomy Family History Depression Diabetes mellitus Malignancy (prostate cancer) Social History Smoking Status: Never Smoker Alcohol Use: none Drug Use: none Marital Status: Housing Status: lives with family Occupation Status: retired Current/Historical Medications Scheduled Biotin (Biotin), 1 CAP PO LUNCH Calcium Carbonate-Vitamin D (Calcium + D), 2 TABS PO LUNCH Cyanocobalamin (Vitamin B-12), 1,000 MCG PO DAILY Duloxetine Hcl (Cymbalta), 60 MG PO QAM Esomeprazole Magnesium (Nexium), 40 MG PO QAM Lactobacillus (Probiotic), 1 CAP PO HS Levothyroxine Sodium (Synthroid), 75 MCG PO QAM Misc Natural Products (Osteo Bi-Flex Advanced Do), 1 TAB PO QAM Multivitamin (Multivitamin), 1 TAB PO LUNCH Polyethylene Glycol 3350 (Miralax), 17 GM PO DAILY Prednisone (Prednisone), 10 MG PO LUNCH Pregabalin (Lyrica), 50 MG PO BID Ranitidine (Zantac), 300 MG PO HS Sennosides-Docusate Sodium (Stool Softener), 1 TAB PO BID Scheduled PRN Baclofen (Lioresal), 10 MG PO HS PRN for Muscle Spasms Lorazepam (Ativan), 0.5 MG PO Q8 PRN for Anxiety Melatonin (Melatonin), 1 MG PO HS PRN for Sleep Allergies Coded Allergies: Sulfamethoxazole w/Trimethoprim (Verified Allergy, Severe, "lips swell", 04/27/17) Sulfa Antibiotics (Verified Allergy, Unknown, swelling of lips, 04/27/17) Codeine (Verified Adverse Reaction, Mild, "nauseated", 04/27/17) Propoxyphene (Verified Adverse Reaction, Mild, "nauseated", 04/27/17) Physical Exam Vital Signs Date Time Temp Pulse Resp B/P (MAP) Pulse Ox O2 Delivery O2 Flow Rate FiO2 04/27/17 18:15 82 18 152/87 95 Room Air 04/27/17 16:05 37.0 89 18 127/72 95 Room Air Physical Exam GENERAL: Patient is in no acute distress. HEENT: No acute trauma, normocephalic atraumatic, fluid behind both TM's, no infection, mucous membranes moist, no nasal congestion, no scleral icterus. NECK: No stridor, no adenopathy, no meningismus, trachea is midline. LUNGS: Clear to auscultation bilaterally, no wheeze, no rhonchi, breath sounds equal. HEART: Without murmurs gallops or rubs, regular rate and rhythm. ABDOMEN: Soft, nontender, bowel sounds positive, no hernias, no peritonitis. EXTREMITIES: No cyanosis or edema, full range of motion of all the joints without pain or difficulty, no signs for acute trauma. NEUROLOGIC: Oriented x 3, no acute motor or sensory deficits, no focal weakness. SKIN: No rash, no jaundice, no diaphoresis. Medical Decision & Procedures ER Provider Diagnostic Interpretation: Radiology results as stated below per my review and radiologist interpretation: CHEST ONE VIEW PORTABLE CLINICAL HISTORY: Sepsis DIZZINESS, FATIGUE COMPARISON STUDY: 03/27/2017 FINDINGS: There are low lung volumes. Increased basal markings are likely atelectatic. There is no failure. There is no lobar consolidation. There are no significant pleural effusions.[ IMPRESSION: 1. Low lung volumes with hypoventilatory changes the lung bases. Electronically signed by: Mayito Dong M.D. 04/27/2017 4:58 PM Dictated Date/Time: 04/27/2017 4:[address] HEAD WITHOUT CONTRAST (CT) CLINICAL HISTORY: Weakness. Possible stroke. COMPARISON STUDY: No previous studies for comparison. TECHNIQUE: Axial CT of the brain is performed from the vertex to the skull base. IV contrast was not administered for this examination. A dose lowering technique was utilized adhering to the principles of ALARA. CT DOSE: 537.48 mGy.cm FINDINGS: There is stable thickening of the right anterior tentorium. There is a stable 7 mm extra-axial calcification abutting the tentorium. Nonspecific this could represent a small meningioma.. There is no CT evidence of acute cortical infarction. There is no evidence of midline shift. There is no acute hemorrhage. No calvarial fractures are visualized. There are moderate white matter hypodensities likely on a small vessel basis. There is no evidence of pathologic ventricular dilatation. There is no evidence of acute sinusitis. There are craniotomy changes involving the right occipital bone. IMPRESSION: 1. No acute intracranial findings 2. Postsurgical changes of a right occipital craniotomy 3. Stable thickening of the right anterior tentorium with a stable 7 mm extra-axial calcification abutting the tentorium Electronically signed by: Mayito Dong M.D. 04/27/2017 6:18 PM Dictated Date/Time: 04/27/2017 6:15 PM Laboratory Results 04/27/17 17:10 Red Blood Count 3.38, Mean Corpuscular Volume 95.9, Mean Corpuscular Hemoglobin 31.4, Mean Corpuscular Hemoglobin Concent 32.7, Mean Platelet Volume 9.5, Neutrophils (%) (Auto) 81.9, Lymphocytes (%) (Auto) 9.4, Monocytes (%) (Auto) 7.6, Eosinophils (%) (Auto) 0.0, Basophils (%) (Auto) 0.1, Neutrophils # (Auto) 15.35, Lymphocytes # (Auto) 1.76, Monocytes # (Auto) 1.43, Eosinophils # (Auto) 0.00, Basophils # (Auto) 0.02 04/27/17 17:10 Test 04/27/17 17:10 04/27/17 17:15 04/27/17 17:33 White Blood Count 18.74 K/uL (4.8-10.8) Red Blood Count 3.38 M/uL (4.2-5.4) Hemoglobin 10.6 g/dL (12.0-16.0) Hematocrit 32.4 % (37-47) Mean Corpuscular Volume 95.9 fL (80-100) Mean Corpuscular Hemoglobin 31.4 pg (25-34) Mean Corpuscular Hemoglobin Concent 32.7 g/dl (32-36) Platelet Count 305 K/uL (130-400) Mean Platelet Volume 9.5 fL (7.4-10.4) Neutrophils (%) (Auto) 81.9 % Lymphocytes (%) (Auto) 9.4 % Monocytes (%) (Auto) 7.6 % Eosinophils (%) (Auto) 0.0 % Basophils (%) (Auto) 0.1 % Neutrophils # (Auto) 15.35 K/uL (1.4-6.5) Lymphocytes # (Auto) 1.76 K/uL (1.2-3.4) Monocytes # (Auto) 1.43 K/uL (0.11-0.59) Eosinophils # (Auto) 0.00 K/uL (0-0.5) Basophils # (Auto) 0.02 K/uL (0-0.2) RDW Standard Deviation 53.5 fL (36.4-46.3) RDW Coefficient of Variation 15.3 % (11.5-14.5) Immature Granulocyte % (Auto) 1.0 % Immature Granulocyte # (Auto) 0.18 K/uL (0.00-0.02) Prothrombin Time 10.7 SECONDS (9.0-12.0) Prothromb Time International Ratio 1.0 (0.9-1.1) Activated Partial Thromboplast Time 27.5 SECONDS (21.0-31.0) Partial Thromboplastin Ratio 1.1 Anion Gap 11.0 mmol/L (3-11) Estimated GFR () 47.8 Estimated GFR (Non- 41.2 BUN/Creatinine Ratio 20.4 (10-20) Calcium Level 8.9 mg/dl (8.5-10.1) Magnesium Level 2.1 mg/dl (1.8-2.4) Total Bilirubin 0.4 mg/dl (0.2-1) Aspartate Amino Transf (AST/SGOT) 10 U/L (15-37) Alanine Aminotransferase (ALT/SGPT) 19 U/L (12-78) Alkaline Phosphatase 62 U/L (45-117) Total Protein 6.7 gm/dl (6.4-8.2) Albumin 3.0 gm/dl (3.4-5.0) Globulin 3.7 gm/dl (2.5-4.0) Albumin/Globulin Ratio 0.8 (0.9-2) Thyroid Stimulating Hormone (TSH) 0.625 uIu/ml (0.300-4.500) Free Thyroxine 1.19 ng/dl (0.80-1.60) Bedside Lactic Acid Venous 0.47 mmol/L (0.90-1.70) Urine Color YELLOW Urine Appearance CLOUDY (CLEAR) Urine pH 6.5 (4.5-7.5) Urine Specific [place] 1.014 (1.000-1.030) Urine Protein TRACE (NEG) Urine Glucose (UA) NEG (NEG) Urine Ketones NEG (NEG) Urine Occult Blood TRACE (NEG) Urine Nitrite NEG (NEG) Urine Bilirubin NEG (NEG) Urine Urobilinogen NEG (NEG) Urine Leukocyte Esterase MODERATE (NEG) Urine WBC (Auto) >30 /hpf (0-5) Urine RBC (Auto) 0-4 /hpf (0-4) Urine Hyaline Casts (Auto) 1-5 /lpf (0-5) Urine Epithelial Cells (Auto) 0-5 /lpf (0-5) Urine Bacteria (Auto) 4+ (NEG) Laboratory results reviewed by me. Medications Administered Medications (Trade) Dose Ordered Sig/Sana Route Start Time Stop Time Status Last Admin Dose Admin Sodium Chloride 500 ml @ 999 mls/hr Q31M ONCE IV 04/27/17 16:42 04/27/17 17:12 DC 04/27/17 17:21 999 MLS/HR Piperacillin Sod/ Tazobactam Sod (Zosyn Iv) 4.5 gm NOW STAT IV 04/27/17 17:41 04/27/17 17:42 DC 04/27/17 18:16 4.5 GM ECG Indication: weakness Rate (beats per minute): 84 Rhythm: normal sinus Findings: no acute ischemic change, no ectopy, other (old inferior infarct) ED Course 1636: The patient was evaluated in room A10. A complete history and physical exam was performed. 1642: Ordered Sodium Chloride 500 ml @ 999 mls/hr IV 1741: Ordered Zosyn Iv 4.5 gm IV 1830: Upon reexamination the patient is resting. I discussed results and treatment plan with the patient. She verbalizes agreement and understanding. The patient will be evaluated by Dr. Ivette JOSE, for further management. Medical Decision Differential diagnosis includes but is not limited to UTI, infection, dehydration, stroke, anemia, electrolyte imbalance, renal failure, and viral illness. There is a significant leukocytosis at 18,000, this is consistent with infection. A very mild anemia was noted. No significant electrolyte abnormality, kidney failure or hepatitis. The patient appears to be in a euthyroid state. EKG shows a sinus rhythm, no acute ischemia. Brain CT shows no acute bleed or mass effect. Chest x-ray does not show pneumonia. Urinalysis does suggest infection, urine culture and blood cultures are pending. Lactic acid level was not elevated making severe sepsis less likely. The patient received IV saline, IV Zosyn. The Zosyn was chosen as her previous urine cultures show sensitivity to this antibiotic. The patient has a urinary infection. This has led to some weakness, some possible mild confusion, it is caused her fever and generalized decline in the last week. She has had similar issues in the past. She does live alone and is in no condition to be discharged home. I did speak with the patient and case management. I discussed things with her family. The on-call hospitalist was consulted. Medication Reconcilliation Current Medication List: was personally reviewed by me Blood Pressure Screening Patient's blood pressure: Normal blood pressure Blood pressure disposition: Did not require urgent referral Consults Time Called: 1824 Consulting Physician: Dr. Ivette JOSE Returned Call: [phone] Discussed the patient's case. The patient will be evaluated for further management. Impression Primary Impression: Leukocytosis Additional Impressions: Weakness UTI (urinary tract infection) Scribe Attestation The scribe's documentation has been prepared under my direction and personally reviewed by me in its entirety. I confirm that the note above accurately reflects all work, treatment, procedures, and medical decision making performed by me. Departure Information Dispostion Being Evaluated By Hospitalist Referrals Topher Artis M.D. (PCP) Patient Instructions My [facility] Problem Qualifiers Primary Impression: Leukocytosis Leukocytosis type: unspecified Qualified Codes: D72.829 - Elevated white blood cell count, unspecified Additional Impressions: UTI (urinary tract infection) Urinary tract infection type: site unspecified Hematuria presence: without hematuria Qualified Codes: N39.0 - Urinary tract infection, site not specified
--- NOTE | 2017-04-27 17:00 | DIAGNOSTIC IMAGING REPORT ---
CHEST ONE VIEW PORTABLE CLINICAL HISTORY: Sepsis DIZZINESS, FATIGUE COMPARISON STUDY: 03/27/2017 FINDINGS: There are low lung volumes. Increased basal markings are likely atelectatic. There is no failure. There is no lobar consolidation. There are no significant pleural effusions.[ IMPRESSION: 1. Low lung volumes with hypoventilatory changes the lung bases. Electronically signed by: Mayito Dong M.D. 04/27/2017 4:58 PM Dictated Date/Time: 04/27/2017 4:57 PM
[2017-04-27 17:37] LABS: BASO % 0.1 %; BASO ABS # 0.02 K/uL (0-0.2); COMPLETE YES; HEMATOCRIT 32.4 % (37-47); LYMPH % 9.4 %; LYMPH ABS # 1.76 K/uL (1.2-3.4); MEAN CELL VOLUME 95.9 fL (80-100); MEAN CORPUSCULAR HEMOGLOBIN 31.4 pg (25-34); MEAN CORPUSCULAR HGB CONC 32.7 g/dl (32-36); MEAN PLATELET VOLUME 9.5 fL (7.4-10.4); MONO % 7.6 %; NEUT % 81.9 %; PLATELET COUNT 305 K/uL (130-400); RED BLOOD COUNT 3.38 M/uL (4.2-5.4); WHITE BLOOD COUNT 18.74 K/uL (4.8-10.8)
[2017-04-27] MEDS ORDERED: PIPERACILLIN/TAZOBACTAM 4.5 GM/100ML D5W IV STA (17:41)
[2017-04-27 17:46] LABS: PARTIAL THROMBOPLASTIN RATIO 1.1; PROTHROMBIN TIME (PATIENT) 10.7 SECONDS (9.0-12.0)
[2017-04-27 17:48] LABS: URINE APPEARANCE CLOUDY (CLEAR); URINE BILIRUBIN NEG (NEG); URINE COLOR YELLOW; URINE EPITHELIAL CELL AUTO 0-5 /lpf (0-5); URINE NITRITE NEG (NEG); URINE PH 6.5 (4.5-7.5); URINE SPECIFIC GRAVITY 1.014 (1.000-1.030); UROBILINOGEN NEG (NEG); ZZURINE CULT IF INDIC CATH YES
[2017-04-27 17:53] LABS: MANUAL MICROSCOPIC REQUIRED? NO; REVIEW REQ? NO
[2017-04-27 17:55] LABS: ALT/SGPT 19 U/L (12-78); AST/SGOT 10 U/L (15-37); BLOOD UREA NITROGEN 25 mg/dl (7-18); BUN/CREATININE RATIO 20.4 (10-20); CALCIUM 8.9 mg/dl (8.5-10.1); CARBON DIOXIDE 19 mmol/L (21-32); CHLORIDE 106 mmol/L (98-107); CREATININE 1.22 mg/dl (0.60-1.20); GLUCOSE 130 mg/dl (70-99); MAGNESIUM 2.1 mg/dl (1.8-2.4); POTASSIUM 3.7 mmol/L (3.5-5.1); SODIUM 136 mmol/L (136-145)
[2017-04-27 18:06] LABS: ALB/GLOB RATIO 0.8 (0.9-2); ALKALINE PHOSPHATASE 62 U/L (45-117); THYROID STIMULATING HORMONE 0.625 uIu/ml (0.300-4.500)
--- NOTE | 2017-04-27 18:19 | DIAGNOSTIC IMAGING REPORT ---
CT HEAD WITHOUT CONTRAST (CT) CLINICAL HISTORY: Weakness. Possible stroke. COMPARISON STUDY: No previous studies for comparison. TECHNIQUE: Axial CT of the brain is performed from the vertex to the skull base. IV contrast was not administered for this examination. A dose lowering technique was utilized adhering to the principles of ALARA. CT DOSE: 537.48 mGy.cm FINDINGS: There is stable thickening of the right anterior tentorium. There is a stable 7 mm extra-axial calcification abutting the tentorium. Nonspecific this could represent a small meningioma.. There is no CT evidence of acute cortical infarction. There is no evidence of midline shift. There is no acute hemorrhage. No calvarial fractures are visualized. There are moderate white matter hypodensities likely on a small vessel basis. There is no evidence of pathologic ventricular dilatation. There is no evidence of acute sinusitis. There are craniotomy changes involving the right occipital bone. IMPRESSION: 1. No acute intracranial findings 2. Postsurgical changes of a right occipital craniotomy 3. Stable thickening of the right anterior tentorium with a stable 7 mm extra-axial calcification abutting the tentorium Electronically signed by: Mayito Dong M.D. 04/27/2017 6:18 PM Dictated Date/Time: 04/27/2017 6:15 PM
[2017-04-27] MEDS ORDERED: NON-FORMULARY MEDICATION (Biotin 1 CAP) PO SCH (20:00)
[2017-04-27] MEDS ORDERED: BACLOFEN 10 MG TAB PO PRN (20:00)
[2017-04-27] MEDS ORDERED: ACETAMINOPHEN 325 MG TAB PO PRN (20:00)
[2017-04-27] MEDS ORDERED: ONDANSETRON INJ 2 MG/ML 2 ML VIAL IV PRN (20:00)
[2017-04-27] MEDS ORDERED: LORAZEPAM 0.5 MG TAB PO PRN (20:00)
[2017-04-27] MEDS ORDERED: NON-FORMULARY MEDICATION (Melatonin 1 MG) PO PRN (20:00)
--- NOTE | 2017-04-27 20:07 | History and Physical ---
History & Physical Date & Time of Service: Apr 27, 2017 at 20:06 Chief Complaint: Dizziness, Weak Primary Care Physician: Topher Artis M.D. History of Present Illness Source: patient, family, hospital records The patient is an 81-year-old female most recently admitted to [facility] from March 27- for UTI, who presents with complaints of intermittent dizziness that began 7 days ago, one day after being discharged from rehabilitation. Her daughters feel that she is presenting with symptoms similar to her previous UTIs , with complaints of urinary burning and incontinence. Past Medical/Surgical History Medical Problems: (1) Benign hypertension Status: Chronic (2) Chronic kidney disease stage 3 Status: Chronic (3) Depression Status: Chronic (4) Diverticular disease of colon Status: Chronic (5) Gastroesophageal reflux disease Status: Chronic (6) History of calculus of kidney Permanent Comment: s/p lithotripsy Status: Chronic (7) History of Clostridium difficile infection Status: Chronic (8) History of esophageal stricture Status: Chronic (9) Hypothyroidism Status: Chronic (10) Osteoporosis Status: Chronic (11) Recurrent UTI Status: Chronic (12) S/P ECT (electroconvulsive therapy) Status: Chronic (13) Spinal stenosis Status: Chronic (14) Spondylolisthesis Status: Chronic (15) Systemic lupus erythematosus Status: Chronic (16) Trigeminal neuralgia Status: Chronic Surgical Problems: (1) History of esophageal dilatation Status: Chronic (2) S/P lumbar fusion Status: Chronic (3) Stat post lithotripsy Status: Chronic (4) Status post cataract extraction Status: Chronic (5) Status post cholecystectomy Status: Chronic (6) Status post hip replacement Status: Chronic (7) Status post hysterectomy Status: Chronic Family History Depression Diabetes mellitus Malignancy (prostate cancer) Social History Smoking Status: Never Smoker Smokeless Tobacco Use: No Alcohol Use: none Drug Use: none Marital Status: Housing status: lives alone Occupational Status: retired Immunizations History of Influenza Vaccine: Yes Influenza Vaccine Date: Apr 04, 2015 History of Tetanus Vaccine?: Yes Tetanus Immunization Date: Dec 29, 2007 History of Pneumococcal: Yes Pneumococcal Date: Jun 19, 2007 Multi-Drug Resistant Organisms History of MDRO: No Allergies Coded Allergies: Sulfamethoxazole w/Trimethoprim (Verified Allergy, Severe, "lips swell", 04/27/17) Sulfa Antibiotics (Verified Allergy, Unknown, swelling of lips, 04/27/17) Codeine (Verified Adverse Reaction, Mild, "nauseated", 04/27/17) Propoxyphene (Verified Adverse Reaction, Mild, "nauseated", 04/27/17) Home Medications Scheduled Biotin (Biotin), 1 CAP PO LUNCH Calcium Carbonate-Vitamin D (Calcium + D), 2 TABS PO LUNCH Cyanocobalamin (Vitamin B-12), 1,000 MCG PO DAILY Duloxetine Hcl (Cymbalta), 60 MG PO QAM Esomeprazole Magnesium (Nexium), 40 MG PO QAM Lactobacillus (Probiotic), 1 CAP PO HS Levothyroxine Sodium (Synthroid), 75 MCG PO QAM Misc Natural Products (Osteo Bi-Flex Advanced Do), 1 TAB PO QAM Multivitamin (Multivitamin), 1 TAB PO LUNCH Polyethylene Glycol 3350 (Miralax), 17 GM PO DAILY Prednisone (Prednisone), 10 MG PO LUNCH Pregabalin (Lyrica), 50 MG PO BID Ranitidine (Zantac), 300 MG PO HS Sennosides-Docusate Sodium (Stool Softener), 1 TAB PO BID Scheduled PRN Baclofen (Lioresal), 10 MG PO HS PRN for Muscle Spasms Lorazepam (Ativan), 0.5 MG PO Q8 PRN for Anxiety Melatonin (Melatonin), 1 MG PO HS PRN for Sleep Review of Systems The patient denies chest pain, palpitations, shortness of breath, cough, lower extremity swelling, vision change, hearing change, sore throat, fevers, chills, sweats, nausea, vomiting, diarrhea or constipation , blood in urine or stool, lightheadedness, dizziness, headache, memory loss, loss of consciousness, rash, abnormal bruising or bleeding, imbalance, focal weakness, numbness or tingling in arms or legs, generalized arthralgias or myalgias, back or neck pain, or night sweats. The review of systems is otherwise negative other than for that already noted above, and at least 10 systems have been reviewed. Physical Exam Vital Signs Date Time Temp Pulse Resp B/P (MAP) Pulse Ox O2 Delivery O2 Flow Rate FiO2 04/27/17 18:15 82 18 152/87 95 Room Air 04/27/17 16:05 37.0 89 18 127/72 95 Room Air The patient is awake, well-developed and adequately nourished, alert and oriented 3, normocephalic and atraumatic, lying in bed and in no acute distress. HEENT--PERRL, EOMI, mucous membranes and oropharynx dry. Neck--supple, no JVD or bruits, thyroid normal, trachea midline, no adenopathy. Heart--normal S1 and S2, no extra beats, no murmurs, rubs or gallops. Lungs--clear bilaterally with good air movement, no respiratory distress, no accessory muscle use. Abdomen--normal bowel sounds and soft, nontender and nondistended, no hernias or masses, no organomegaly. Extremities--no cyanosis, clubbing or edema. There are good distal pulses b/l. Dermatologic--normal skin turgor, normal color, warm and dry, no abnormal lymph nodes, no rash. Neurologic--cranial nerves II through XII grossly intact. Rheumatologic--normal range of motion. Psychiatric--normal affect. Diagnostics Laboratory Results Results Past 24 Hours Test 04/27/17 17:10 04/27/17 17:15 04/27/17 17:33 Range/Units White Blood Count 18.74 4.8-10.8 K/uL Red Blood Count 3.38 4.2-5.4 M/uL Hemoglobin 10.6 12.0-16.0 g/dL Hematocrit 32.4 37-47 % Mean Corpuscular Volume 95.9 80-100 fL Mean Corpuscular Hemoglobin 31.4 25-34 pg Mean Corpuscular Hemoglobin Concent 32.7 32-36 g/dl Platelet Count 305 130-400 K/uL Mean Platelet Volume 9.5 7.4-10.4 fL Neutrophils (%) (Auto) 81.9 % Lymphocytes (%) (Auto) 9.4 % Monocytes (%) (Auto) 7.6 % Eosinophils (%) (Auto) 0.0 % Basophils (%) (Auto) 0.1 % Neutrophils # (Auto) 15.35 1.4-6.5 K/uL Lymphocytes # (Auto) 1.76 1.2-3.4 K/uL Monocytes # (Auto) 1.43 0.11-0.59 K/uL Eosinophils # (Auto) 0.00 0-0.5 K/uL Basophils # (Auto) 0.02 0-0.2 K/uL RDW Standard Deviation 53.5 36.4-46.3 fL RDW Coefficient of Variation 15.3 11.5-14.5 % Immature Granulocyte % (Auto) 1.0 % Immature Granulocyte # (Auto) 0.18 0.00-0.02 K/uL Prothrombin Time 10.7 9.0-12.0 SECONDS Prothromb Time International Ratio 1.0 0.9-1.1 Activated Partial Thromboplast Time 27.5 21.0-31.0 SECONDS Partial Thromboplastin Ratio 1.1 Sodium Level 136 136-145 mmol/L Potassium Level 3.7 3.5-5.1 mmol/L Chloride Level 106 98-107 mmol/L Carbon Dioxide Level 19 21-32 mmol/L Anion Gap 11.0 3-11 mmol/L Blood Urea Nitrogen 25 7-18 mg/dl Creatinine 1.22 0.60-1.20 mg/dl Estimated GFR () 47.8 Estimated GFR (Non- 41.2 BUN/Creatinine Ratio 20.4 10-20 Random Glucose 130 70-99 mg/dl Calcium Level 8.9 8.5-10.1 mg/dl Magnesium Level 2.1 1.8-2.4 mg/dl Total Bilirubin 0.4 0.2-1 mg/dl Aspartate Amino Transf (AST/SGOT) 10 15-37 U/L Alanine Aminotransferase (ALT/SGPT) 19 12-78 U/L Alkaline Phosphatase 62 45-117 U/L Total Protein 6.7 6.4-8.2 gm/dl Albumin 3.0 3.4-5.0 gm/dl Globulin 3.7 2.5-4.0 gm/dl Albumin/Globulin Ratio 0.8 0.9-2 Thyroid Stimulating Hormone (TSH) 0.625 0.300-4.500 uIu/ml Free Thyroxine 1.19 0.80-1.60 ng/dl Bedside Lactic Acid Venous 0.47 0.90-1.70 mmol/L Urine Color YELLOW Urine Appearance CLOUDY CLEAR Urine pH 6.5 4.5-7.5 Urine Specific [place] 1.014 1.000-1.030 Urine Protein TRACE NEG Urine Glucose (UA) NEG NEG Urine Ketones NEG NEG Urine Occult Blood TRACE NEG Urine Nitrite NEG NEG Urine Bilirubin NEG NEG Urine Urobilinogen NEG NEG Urine Leukocyte Esterase MODERATE NEG Urine WBC (Auto) >30 0-5 /hpf Urine RBC (Auto) 0-4 0-4 /hpf Urine Hyaline Casts (Auto) 1-5 0-5 /lpf Urine Epithelial Cells (Auto) 0-5 0-5 /lpf Urine Bacteria (Auto) 4+ NEG Microbiology Results 04/27/17 Blood Culture, Received Pending 04/27/17 Blood Culture, Received Pending 04/27/17 Urine Culture, Received Pending Diagnostic Radiology Patient Name: AMAURY WILDE Unit Number: [id number] Dictated: 04/27/171656 Transcribed: 04/27/171656 ARG Printed Date/Time: [~ rep prt dt]/[~ rep prt tm] [~ rep ct labl] - [~ rep ct ivnm] [facility] Radiology Department [place], [place] [id number] Dictated: 04/27/171656 Transcribed: 04/27/171656 ARG Printed Date/Time: [~ rep prt dt]/[~ rep prt tm] [~ rep ct labl] - [~ rep ct ivnm] [~ rep ct add3]] CHEST ONE VIEW PORTABLE CLINICAL HISTORY: Sepsis DIZZINESS, FATIGUE COMPARISON STUDY: 03/27/2017 FINDINGS: There are low lung volumes. Increased basal markings are likely atelectatic. There is no failure. There is no lobar consolidation. There are no significant pleural effusions.[ IMPRESSION: 1. Low lung volumes with hypoventilatory changes the lung bases. Electronically signed by: Mayito Dong M.D. 04/27/2017 4:58 PM Dictated Date/Time: 04/27/2017 4:57 PM The status of this report is Signed. Draft = Not yet reviewed or approved by Radiologist. Signed = Reviewed and approved by Radiologist. <AttendingPhy></AttendingPhy> <FamilyPhy>Topher Artis M.D.</FamilyPhy> < PrimaryPhy>Topher Artis M.D.</PrimaryPhy> <UnitNumber>[id number]</UnitNumber> <VisitNumber>[id number]</VisitNumber> <PatientName>AMAURY WILDE</ PatientName> <DateOfBirth>1935</DateOfBirth> <Location>[facility]</Location> < ServiceDate>04/27/17</ServiceDate> <MNE>ESINDI</MNE> <OrderingPhy>Venkat Houston M.D.</OrderingPhy> <OrderingPhyMNE>f rep ord dr cope</OrderingPhyMNE> < DictatingPhyMNE>f rep dict dr cope</DictatingPhyMNE> <CCListMNE>f rep ct mne</ CCListMNE> <AdmittingPhyMNE>f pt admit dr cope</AdmittingPhyMNE> <AttendingPhyMNE >f pt attend dr cope</AttendingPhyMNE> <ConsultingPhyMNE>f pt consult dr cope</ConsultingPhyMNE> <FamilyPhyMNE>f pt fam dr cope</FamilyPhyMNE> <OtherPhyMNE>f pt other dr cope</OtherPhyMNE> < PrimaryPhyMNE>f pt prim care dr cope</PrimaryPhyMNE> <ReferringPhyMNE>f pt referring dr cope</ReferringPhyMNE> Patient Name: AMAURY WILDE Unit Number: [id number] Dictated: 04/27/171814 Transcribed: 04/27/171814 ARG Printed Date/Time: [~ rep prt dt]/[~ rep prt tm] [~ rep ct labl] - [~ rep ct ivnm] [facility] Radiology Department [place] [id number] Dictated: 04/27/171814 Transcribed: 04/27/171814 ARG Printed Date/Time: [~ rep prt dt]/[~ rep prt tm] [~ rep ct labl] - [~ rep ct ivnm] [~ rep ct add3]] CT HEAD WITHOUT CONTRAST (CT) CLINICAL HISTORY: Weakness. Possible stroke. COMPARISON STUDY: No previous studies for comparison. TECHNIQUE: Axial CT of the brain is performed from the vertex to the skull base. IV contrast was not administered for this examination. A dose lowering technique was utilized adhering to the principles of ALARA. CT DOSE: 537.48 mGy.cm FINDINGS: There is stable thickening of the right anterior tentorium. There is a stable 7 mm extra-axial calcification abutting the tentorium. Nonspecific this could represent a small meningioma.. There is no CT evidence of acute cortical infarction. There is no evidence of midline shift. There is no acute hemorrhage. No calvarial fractures are visualized. There are moderate white matter hypodensities likely on a small vessel basis. There is no evidence of pathologic ventricular dilatation. There is no evidence of acute sinusitis. There are craniotomy changes involving the right occipital bone. IMPRESSION: 1. No acute intracranial findings 2. Postsurgical changes of a right occipital craniotomy 3. Stable thickening of the right anterior tentorium with a stable 7 mm extra-axial calcification abutting the tentorium Electronically signed by: Mayito Dong M.D. 04/27/2017 6:18 PM Dictated Date/Time: 04/27/2017 6:15 PM The status of this report is Signed. Draft = Not yet reviewed or approved by Radiologist. Signed = Reviewed and approved by Radiologist. <AttendingPhy></AttendingPhy> <FamilyPhy>Topher Artis M.D.</FamilyPhy> < PrimaryPhy>Topher Artis M.D.</PrimaryPhy> <UnitNumber>[id number]</UnitNumber> <VisitNumber>[id number]</VisitNumber> <PatientName>AMAURY WILDE</ PatientName> <DateOfBirth>1935</DateOfBirth> <Location>[facility]</Location> < ServiceDate>04/27/17</ServiceDate> <MNE>ESINDI</MNE> <OrderingPhy>Venkat Houston M.D.</OrderingPhy> <OrderingPhyMNE>f rep ord dr cope</OrderingPhyMNE> < DictatingPhyMNE>f rep dict dr cope</DictatingPhyMNE> <CCListMNE>f rep ct salenae</ CCListMNE> <AdmittingPhyMNE>f pt admit dr cope</AdmittingPhyMNE> <AttendingPhyMNE >f pt attend dr cope</AttendingPhyMNE> <ConsultingPhyMNE>f pt consult dr cope</ConsultingPhyMNE> <FamilyPhyMNE>f pt fam dr cope</FamilyPhyMNE> <OtherPhyMNE>f pt other dr cope</OtherPhyMNE> < PrimaryPhyMNE>f pt prim care dr cope</PrimaryPhyMNE> <ReferringPhyMNE>f pt referring dr cope</ReferringPhyMNE> EKG EKG shows normal sinus rhythm at 84 bpm, 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 Nothing by mouth except essential medications. Zosyn IV. Zofran 4 mg IV every 6 hours when necessary. Famotidine 20 mg IV every 12 hours. Consult urology. Systemic lupus erythematosus-- Has just had a dosing of prednisone tapered to 10 mg daily, she does have some report of fatigue, but family requested we try to not increase her prednisone for stress dosing at this time. I did discuss with them that if she has progressive fatigue, she may require stress testing of steroids at that time. Hypothyroidism--continue levothyroxine sodium at 75 g daily. GERD--on Nexium and ranitidine as outpatient. Hold oral medications for possible procedure, and place on famotidine IV as noted above. Peripheral neuropathy--hold Lyrica while nothing by mouth. Vitamin B12 deficiency--hold supplement while nothing by mouth. Level of Care Med/Surg Advanced Directives Existing Advance Directive: No Existing Living Will: No Existing Power of Resin Filterer: No Resuscitation Status FULL RESUSCITATION VTE Prophylaxis VTE Risk Assessment Done? Y/N: Yes Risk Level: Moderate Given or contraindicated: SCD's
[2017-04-27 20:59] VITALS: O2SAT 95; Ht 154.9 cm; Wt 72.8 kg
[2017-04-27] MEDS ORDERED: RANITIDINE HCL 150 MG TAB PO SCH (21:00)
[2017-04-27] MEDS ORDERED: PREGABALIN 50 MG CAP PO SCH (21:00)
[2017-04-27] MEDS ORDERED: CALCIUM 600MG + VIT D 400 IU TAB PO SCH (21:00)
[2017-04-27] MEDS ORDERED: PIPERACILL/TAZOBAC CONSULT ACTIVE PRN (21:30)
[2017-04-27] MEDS: NSS + 20MEQ KCL 1000ML 1,000 ML IV SCH (22:02)
[2017-04-27] MEDS: DOCUSATE SODIUM/SENNA 50/8.6MG TAB PO SCH (22:03)
[2017-04-27 23:04] VITALS: BP 153/80; PULSE 89; TEMP 36.5; O2SAT 95
[2017-04-28] MEDS: PIPERACILL/TAZOBAC IV 3.375 GM in DEXTROSE 5% 100ML 100 ML IV SCH ×4 (00:32→23:30)
[2017-04-28] MEDS ORDERED: INFLUENZA VACCINE HIGH DOSE 65+ 0.5 ML SYR IM. ONE (01:00)
[2017-04-28] MEDS ORDERED: INFLUENZA ADMINISTRATION CHARGE ONE (01:00)
[2017-04-28] MEDS: FAMOTIDINE IV INJ 20 MG in DEXTROSE 5% 100ML 100 ML IV SCH ×2 (04:54→15:50)
[2017-04-28] MEDS: LEVOTHYROXINE 75 MCG TAB PO SCH (05:54)
[2017-04-28 07:04] LABS: BASO % 0.1 %; BASO ABS # 0.01 K/uL (0-0.2); COMPLETE YES; EOS % 0.4 %; IG% 0.8 %; LYMPH % 17.1 %; LYMPH ABS # 2.47 K/uL (1.2-3.4); MEAN CELL VOLUME 96.2 fL (80-100); MEAN CORPUSCULAR HEMOGLOBIN 32.1 pg (25-34); MEAN CORPUSCULAR HGB CONC 33.3 g/dl (32-36); MEAN PLATELET VOLUME 9.6 fL (7.4-10.4); MONO % 12.4 %; NEUT % 69.2 %; PLATELET COUNT 281 K/uL (130-400); RED BLOOD COUNT 3.12 M/uL (4.2-5.4); WHITE BLOOD COUNT 14.42 K/uL (4.8-10.8)
[2017-04-28 07:08] LABS: PARTIAL THROMBOPLASTIN RATIO 1.1; PROTHROMBIN TIME (PATIENT) 10.7 SECONDS (9.0-12.0)
--- NOTE | 2017-04-28 07:18 | DIAGNOSTIC IMAGING REPORT ---
ABDOMEN AND PELVIS CT WITHOUT CONTRAST CT DOSE: 918.76 mGy.cm HISTORY: EVALUATE FLANK PAIN/HEMATURIA TECHNIQUE: Multiaxial CT images of the abdomen and pelvis were performed without the use of intravenous and oral contrast according to the standard department stone protocol. A dose lowering technique was utilized adhering to the principles of ALARA. COMPARISON STUDY: Abdomen and pelvis CT 10/23/2015. FINDINGS: Bibasal linear densities consistent with subsegmental atelectasis. Small fat-containing right-sided Bochdalek hernia. Moderate hiatus hernia. This is increased in size. The unenhanced liver, spleen, adrenal glands, pancreas unremarkable. The gallbladder appears surgically absent. There are few punctate bilateral renal calculi. Distal ureters and bladder are obscured due to the metallic artifact from the total hip arthroplasties. Sclerosis within the bilateral to 4 mm stone within the proximal left ureter on image 83. No significant hydronephrosis. Mild right perinephric fat stranding, unchanged. Colonic diverticulosis. No definite bowel wall thickening or obstruction. Small fat-containing umbilical hernia. Sacral wings consistent with old insufficiency rashes. This is similar to the prior study. Old compression fractures at T11, T12, and L3 remain unchanged. Posterior fusion within the lower lumbar spine. IMPRESSION: 1. A 4 mm stone within the proximal left ureter without significant hydronephrosis. 2. Bilateral nephrolithiasis. 3. Right greater than left perinephric fat stranding. Recommend correlation with urinalysis to exclude an infectious process. 4. Of note the distal ureters and bladder are obscured by metallic artifact from the total hip arthroplasties. 5. Moderate hiatus hernia which is progressed. Electronically signed by: Gary Duran M.D. 04/28/2017 7:16 AM Dictated Date/Time: 04/28/2017 7:10 AM
[2017-04-28 07:38] LABS: BUN/CREATININE RATIO 19.5 (10-20); CALCIUM 8.5 mg/dl (8.5-10.1); CREATININE 1.07 mg/dl (0.60-1.20); MAGNESIUM 2.3 mg/dl (1.8-2.4); POTASSIUM 3.4 mmol/L (3.5-5.1)
[2017-04-28] MEDS ORDERED: LACTOBACILLUS ACIDOPHILUS (FLORANEX) TAB PO SCH (08:00)
[2017-04-28 08:12] VITALS: BP 146/75; PULSE 74; TEMP 36.8; O2SAT 92
[2017-04-28] MEDS: DOCUSATE SODIUM/SENNA 50/8.6MG TAB PO SCH ×2 (08:13→20:37)
[2017-04-28] MEDS: DULOXETINE HCL 60 MG CAP PO SCH (08:14)
--- NOTE | 2017-04-28 08:41 | Urology Consultation ---
History General Date of Service: Apr 28, 2017. Chief Complaint: abdominal pain Primary Care Physician: Topher Artis M.D. Pt seen a urologist before?: Yes (Dr. Jackson) If yes, why?: nocturia, incontinence, recurrent UTI History of Present Illness 81 yo female presents to [facility] with c/o dizziness. She is found to have a 4mm proximal left ureteral stone on CT. She has a hx of stones requiring ESWL in the past several years ago it sounds like. She reports some lower abdominal pain this morning. She feels it is tolerable. She is somewhat confused this morning. She is noted to have seen Dr. Bowling, Dr. Jackson, and Christine HARRIS in our office previously for recurrent UTI, LUTS, and a calcified urethral lesion. She does recall this, but is confused this morning as she thought her stone was already removed (sounds as though she has this confused with removal of her previous calcified urethral lesion). She is noted to have positive preliminarily UC&S growing gram negative bacilli. She is afebrile. White count elevated at 18.74 on admission has improved to 14.42 overnight. She has been started on Zosyn. Cr has improved from 1.22 to 1.07 as well. Imaging Imaging: CT Laboratory Last 24 Hours Test 04/27/17 17:10 04/27/17 17:15 04/27/17 17:33 04/28/17 06:44 White Blood Count 18.74 K/uL 14.42 K/uL Red Blood Count 3.38 M/uL 3.12 M/uL Hemoglobin 10.6 g/dL 10.0 g/dL Hematocrit 32.4 % 30.0 % Mean Corpuscular Volume 95.9 fL 96.2 fL Mean Corpuscular Hemoglobin 31.4 pg 32.1 pg Mean Corpuscular Hemoglobin Concent 32.7 g/dl 33.3 g/dl Platelet Count 305 K/uL 281 K/uL Mean Platelet Volume 9.5 fL 9.6 fL Neutrophils (%) (Auto) 81.9 % 69.2 % Lymphocytes (%) (Auto) 9.4 % 17.1 % Monocytes (%) (Auto) 7.6 % 12.4 % Eosinophils (%) (Auto) 0.0 % 0.4 % Basophils (%) (Auto) 0.1 % 0.1 % Neutrophils # (Auto) 15.35 K/uL 9.98 K/uL Lymphocytes # (Auto) 1.76 K/uL 2.47 K/uL Monocytes # (Auto) 1.43 K/uL 1.79 K/uL Eosinophils # (Auto) 0.00 K/uL 0.06 K/uL Basophils # (Auto) 0.02 K/uL 0.01 K/uL RDW Standard Deviation 53.5 fL 53.7 fL RDW Coefficient of Variation 15.3 % 15.3 % Immature Granulocyte % (Auto) 1.0 % 0.8 % Immature Granulocyte # (Auto) 0.18 K/uL 0.11 K/uL Prothrombin Time 10.7 SECONDS 10.7 SECONDS Prothromb Time International Ratio 1.0 1.0 Activated Partial Thromboplast Time 27.5 SECONDS 27.6 SECONDS Partial Thromboplastin Ratio 1.1 1.1 Sodium Level 136 mmol/L 143 mmol/L Potassium Level 3.7 mmol/L 3.4 mmol/L Chloride Level 106 mmol/L 112 mmol/L Carbon Dioxide Level 19 mmol/L 24 mmol/L Anion Gap 11.0 mmol/L 7.0 mmol/L Blood Urea Nitrogen 25 mg/dl 21 mg/dl Creatinine 1.22 mg/dl 1.07 mg/dl Estimated GFR () 47.8 56.0 Estimated GFR (Non- 41.2 48.3 BUN/Creatinine Ratio 20.4 19.5 Random Glucose 130 mg/dl 85 mg/dl Calcium Level 8.9 mg/dl 8.5 mg/dl Magnesium Level 2.1 mg/dl 2.3 mg/dl Total Bilirubin 0.4 mg/dl Aspartate Amino Transf (AST/SGOT) 10 U/L Alanine Aminotransferase (ALT/SGPT) 19 U/L Alkaline Phosphatase 62 U/L Total Protein 6.7 gm/dl Albumin 3.0 gm/dl Globulin 3.7 gm/dl Albumin/Globulin Ratio 0.8 Thyroid Stimulating Hormone (TSH) 0.625 uIu/ml Free Thyroxine 1.19 ng/dl Bedside Lactic Acid Venous 0.47 mmol/L Urine Color YELLOW Urine Appearance CLOUDY Urine pH 6.5 Urine Specific [place] 1.014 Urine Protein TRACE Urine Glucose (UA) NEG Urine Ketones NEG Urine Occult Blood TRACE Urine Nitrite NEG Urine Bilirubin NEG Urine Urobilinogen NEG Urine Leukocyte Esterase MODERATE Urine WBC (Auto) >30 /hpf Urine RBC (Auto) 0-4 /hpf Urine Hyaline Casts (Auto) 1-5 /lpf Urine Epithelial Cells (Auto) 0-5 /lpf Urine Bacteria (Auto) 4+ Est Creatinine Clear Calc Drug Dose 37.1 ml/min Test 04/28/17 07:15 Bedside Glucose 79 mg/dl Problem List Medical Problems: (1) Acute kidney injury Status: Acute (2) Altered mental state Status: Acute (3) Compression fx, thoracic spine Status: Acute (4) Failure of outpatient treatment Status: Acute (5) Generalized weakness Status: Acute (6) Leukocytosis Status: Acute (7) Sepsis secondary to UTI Status: Acute (8) UTI (urinary tract infection) Status: Acute (9) UTI (urinary tract infection) Status: Acute (10) Weakness Status: Acute Surgical Problems: (1) History of esophageal dilatation Status: Chronic Past History chronic back pain, depression, diverticulosis, fibromyalgia, GERD, hypertension , hypothyroidism, kidney stones, osteoporosis, renal disease (CKD stage 3), urinary tract infection, other (c-diff, esophageal stricture, spinal stenosis, spondylolisthesis, lupus, trigeminal neuralgia, electroconvulsive therapy) Pt had a problem w anesthesia?: No Past Surgical History: cholecystectomy, hysterectomy, lithotripsy, spinal surgery, THR, other (esophageal dilation, cataract surgery) Family History Depression Diabetes mellitus Malignancy (prostate cancer) Social History Hx Tobacco Use In Past Year?: No Smoking: non-smoker Alcohol: never Drug use: none Marital status: Housing status: lives alone Occupation status: retired Immunizations History of Influenza Vaccine: Yes Influenza Vaccine Date: Apr 04, 2015 History of Tetanus Vaccine?: Yes Tetanus Immunization Date: Dec 29, 2007 History of Pneumococcal: Yes Pneumococcal Date: Jun 19, 2007 History of MDRO No Allergies Coded Allergies: Sulfamethoxazole w/Trimethoprim (Verified Allergy, Severe, "lips swell", 04/27/17) Sulfa Antibiotics (Verified Allergy, Unknown, swelling of lips, 04/27/17) Codeine (Verified Adverse Reaction, Mild, "nauseated", 04/27/17) Propoxyphene (Verified Adverse Reaction, Mild, "nauseated", 04/27/17) Medications Home Medications: Home Meds and Scripts Medications Dose Route/Sig Max Daily Dose Days Date Category Dose Instructions Ativan (Lorazepam) 0.5 Mg Tab 0.5 Mg PO Q8 PRN 04/01/17 Rx Miralax (Polyethylene Glycol 3350) 1 Pow Pow 17 Gm PO DAILY 03/27/17 Reported Vitamin B-12 (Cyanocobalamin) 1,000 Mcg Sub 1,000 Mcg PO DAILY 03/27/17 Reported Probiotic (Lactobacillus) 1 Cap Cap 1 Cap PO HS 03/27/17 Reported Melatonin 1 Mg Tab 1 Mg PO HS PRN 03/27/17 Reported Osteo Bi-Flex Advanced Do (Misc Natural Products) 1 Tab Tab 1 Tab PO QAM 11/21/16 Reported Stool Softener (Sennosides-Docusate Sodium) 1 Tab Tab 1 Tab PO BID 11/21/16 Reported Calcium + D (Calcium Carbonate-Vitamin D) 1 Tab Tab 2 Tabs PO LUNCH 11/21/16 Reported Nexium (Esomeprazole Magnesium) 40 Mg Capcr 40 Mg PO QAM 02/15/16 Reported Prednisone 5 Mg Tab 10 Mg PO LUNCH 02/15/16 Reported Lioresal (Baclofen) 10 Mg Tab 10 Mg PO HS PRN 02/15/16 Reported PT TAKES 10 MG AT HS EVERY DAY, MAY TAKE UP TO 3 DOSES PER 24 HOURS. Lyrica (Pregabalin) 50 Mg Cap 50 Mg PO BID 10/04/15 Reported Biotin 1 Mg Cap 1 Cap PO LUNCH 07/16/14 Reported Synthroid (Levothyroxine Sodium) 75 Mcg Tab 75 Mcg PO QAM 12/28/13 Reported Multivitamin (Multivitamins) Tab 1 Tab PO LUNCH 08/20/11 Reported Cymbalta (Duloxetine Hcl) 60 Mg Cap 60 Mg PO QAM 08/20/11 Reported Zantac (Ranitidine HCl) 300 Mg Tab 300 Mg PO HS 08/20/11 Reported Inpatient Medications: Current Inpatient Medications Medications (Trade) Dose Ordered Sig/Sana Route Start Time Stop Time Status Last Admin Dose Admin Acetaminophen (Tylenol Tab) 650 mg Q4H PRN PO 04/27/17 20:00 05/27/17 19:59 Baclofen (Lioresal Tab) 10 mg HS PRN PO 04/27/17 20:00 05/27/17 19:59 Duloxetine HCl (Cymbalta Cap) 60 mg QAM PO 04/28/17 09:00 05/28/17 08:59 Levothyroxine Sodium (Synthroid Tab) 75 mcg DAILYBB PO 04/28/17 06:30 05/28/17 06:29 04/28/17 05:54 75 MCG Lorazepam (Ativan Tab) 0.5 mg Q8H PRN PO 04/27/17 20:00 05/27/17 19:59 Prednisone (PredniSONE TAB) 10 mg QDL PO 04/28/17 12:00 05/28/17 11:59 Senna/Docusate Sodium (Senokot S Tab) 1 tab BID PO 04/27/17 21:00 05/27/17 20:59 04/27/17 22:03 1 TAB Piperacillin Sod/ Tazobactam Sod 3.375 gm/Dextrose 115 ml @ 28.75 mls/ hr Q8H IV 04/28/17 00:00 05/03/17 00:00 04/28/17 00:32 28.75 MLS/HR Ondansetron HCl (Zofran Inj) 4 mg Q6H PRN IV 04/27/17 20:00 05/27/17 19:59 Acetaminophen 100 ml @ 400 mls/hr Q8H PRN IV 04/27/17 20:00 05/27/17 19:59 Potassium Chloride/Sodium Chloride 1,000 ml @ 60 mls/hr [id number] IV 04/27/17 21:30 05/27/17 21:29 04/27/17 22:02 60 MLS/HR Piperacillin Sod/ Tazobactam Sod (Consult) 1 ea UD PRN N/A 04/27/17 21:30 05/27/17 21:29 Famotidine 20 mg/ Dextrose 102 ml @ 200 mls/hr Q12H IV 04/28/17 04:00 05/28/17 03:59 04/28/17 04:54 200 MLS/HR Review of Systems Review of Systems Constitutional: No fever, No chills Eyes: No double vision Neurological: No dizzy Endocrine: No excessive thirst Gastrointestinal: + abdominal pain (lower abdominal), No nausea, No vomiting Cardiovascular: No chest pain Respiratory: + shortness of breath (intermittent baseline SOB with activity) Skin: No rash Female : No painful urination, No blood in urine Physical Exam Vital Signs: Vital Signs Past 12 Hours Date Time Temp Pulse Resp B/P (MAP) Pulse Ox O2 Delivery O2 Flow Rate FiO2 04/28/17 08:12 36.8 74 18 146/75 (98) 92 04/28/17 00:00 Room Air 04/27/17 23:04 36.5 89 19 153/80 (104) 95 Room Air 04/27/17 20:59 95 Room Air Physical Exam: General Appearance: no apparent distress Eyes: bilateral eyes normal inspection ENT: hearing grossly normal Neck: no JVD Respiratory/Chest: no respiratory distress, no accessory muscle use Cardiovascular: no JVD Gastrointestinal: Abdomen: pertinent finding (non-tender abdomen on exam ) Extremities: normal inspection Neurologic/Psychiatric: alert, normal mood/affect, oriented x 3 Skin: normal color Assessment & Plan Assessment & Plan A/P: 4mm proximal left ureteral stone, UTI AFVSS. Cr and pain have improved since admission. Will check a KUB this morning to see if stone has passed. Confusion ? r/t UTI. Uncertain as to her baseline. Continue IV abx pending culture sensitivities. Would need urgent stent placement in the event she were to develop a fever or decompensate. Case discussed with Dr. Jackson this morning. Thanks for the consult. Will continue to follow along with primary service at this time. ADDENDUM: No ureteral stones visualized on KUB. Will provide a diet today and observe overnight. NPO after midnight. If pain returns, may need to repeat a CT or check an IVP.
[2017-04-28] MEDS ORDERED: POLYETHYLENE (MIRALAX) 17 GM PACK PO SCH (09:00)
[2017-04-28] MEDS ORDERED: MULTIVITAMIN TAB PO SCH (09:00)
[2017-04-28] MEDS ORDERED: GLUCOSAMINE SULFATE 500 MG CAP PO SCH (09:00)
[2017-04-28] MEDS ORDERED: CYANOCOBALAMIN 500 MCG TAB (VIT B-12) PO SCH (09:00)
[2017-04-28] MEDS ORDERED: PANTOprazole SOD 40 MG TAB PO SCH (09:00)
--- NOTE | 2017-04-28 09:23 | Hospitalist Progress Note ---
Hospitalist Progress Note Date of Service Apr 28, 2017. (Reshma Seymour PA-C) Subjective Pt evaluation today including: conversation w/ patient, physical exam, chart review, lab review Pain: Minimal low back PO Intake: Good Voiding: no voiding problems The patient was seen and examined this morning. Pt reports she is doing better today compared to yesterday. Her pain is only in the low back, but reports hx of back surgery where she had implants placed, so typically has pain there. She denies acute flank pain, fever, chills or sweats. KUB results were discussed with the patient and that they did not reveal a stone. Nursing has mentioned daughters are concerned for her mental status, and that she is sometimes confused- although on my exam she is AAOx3. Constitutional: No fever, No chills, No sweats, No fatigue Eyes: No redness, No diplopia ENT: No nasal symptoms, No trouble swallowing Respiratory: No cough, No wheezing, No shortness of breath, No dyspnea at rest Cardiovascular: No chest pain, No edema Abdomen: No pain, No nausea, No vomiting, No diarrhea, No constipation Musculoskeletal: No joint pain, No muscle pain, No swelling Female : No dysuria, No urinary frequency, No hematuria Neurologic: No memory loss, No weakness Skin: No rash, No itch (Reshma Seymour PA-C) Objective Vital Signs Date Time Temp Pulse Resp B/P (MAP) Pulse Ox O2 Delivery O2 Flow Rate FiO2 04/28/17 08:12 36.8 74 18 146/75 (98) 92 04/28/17 00:00 Room Air 04/27/17 23:04 36.5 89 19 153/80 (104) 95 Room Air 04/27/17 20:59 95 Room Air 04/27/17 20:14 88 18 159/77 95 Room Air 04/27/17 18:15 82 18 152/87 95 Room Air 04/27/17 16:05 37.0 89 18 127/72 95 Room Air (Reshma Seymour PA-C) Physical Exam General Appearance: WD/WN, no apparent distress Eyes: PERRL, EOMI ENT: hearing grossly normal, pharynx normal, + pertinent finding (MMM) Neck: supple, no JVD Respiratory/Chest: lungs clear, no respiratory distress, no accessory muscle use Cardiovascular: regular rate, rhythm, no JVD, no murmur Abdomen: normal bowel sounds, non tender, soft Extremities: non-tender, no calf tenderness, + pedal edema (1+ pitting BLE) Neurologic/Psychiatric: alert, normal mood/affect, oriented x 3 Skin: normal color, warm/dry (Reshma Seymour, MIKAYLA) Laboratory Results Last 24 Hours Test 04/27/17 17:10 04/27/17 17:15 04/27/17 17:33 04/28/17 06:44 White Blood Count 18.74 K/uL 14.42 K/uL Red Blood Count 3.38 M/uL 3.12 M/uL Hemoglobin 10.6 g/dL 10.0 g/dL Hematocrit 32.4 % 30.0 % Mean Corpuscular Volume 95.9 fL 96.2 fL Mean Corpuscular Hemoglobin 31.4 pg 32.1 pg Mean Corpuscular Hemoglobin Concent 32.7 g/dl 33.3 g/dl Platelet Count 305 K/uL 281 K/uL Mean Platelet Volume 9.5 fL 9.6 fL Neutrophils (%) (Auto) 81.9 % 69.2 % Lymphocytes (%) (Auto) 9.4 % 17.1 % Monocytes (%) (Auto) 7.6 % 12.4 % Eosinophils (%) (Auto) 0.0 % 0.4 % Basophils (%) (Auto) 0.1 % 0.1 % Neutrophils # (Auto) 15.35 K/uL 9.98 K/uL Lymphocytes # (Auto) 1.76 K/uL 2.47 K/uL Monocytes # (Auto) 1.43 K/uL 1.79 K/uL Eosinophils # (Auto) 0.00 K/uL 0.06 K/uL Basophils # (Auto) 0.02 K/uL 0.01 K/uL RDW Standard Deviation 53.5 fL 53.7 fL RDW Coefficient of Variation 15.3 % 15.3 % Immature Granulocyte % (Auto) 1.0 % 0.8 % Immature Granulocyte # (Auto) 0.18 K/uL 0.11 K/uL Prothrombin Time 10.7 SECONDS 10.7 SECONDS Prothromb Time International Ratio 1.0 1.0 Activated Partial Thromboplast Time 27.5 SECONDS 27.6 SECONDS Partial Thromboplastin Ratio 1.1 1.1 Sodium Level 136 mmol/L 143 mmol/L Potassium Level 3.7 mmol/L 3.4 mmol/L Chloride Level 106 mmol/L 112 mmol/L Carbon Dioxide Level 19 mmol/L 24 mmol/L Anion Gap 11.0 mmol/L 7.0 mmol/L Blood Urea Nitrogen 25 mg/dl 21 mg/dl Creatinine 1.22 mg/dl 1.07 mg/dl Estimated GFR () 47.8 56.0 Estimated GFR (Non- 41.2 48.3 BUN/Creatinine Ratio 20.4 19.5 Random Glucose 130 mg/dl 85 mg/dl Calcium Level 8.9 mg/dl 8.5 mg/dl Magnesium Level 2.1 mg/dl 2.3 mg/dl Total Bilirubin 0.4 mg/dl Aspartate Amino Transf (AST/SGOT) 10 U/L Alanine Aminotransferase (ALT/SGPT) 19 U/L Alkaline Phosphatase 62 U/L Total Protein 6.7 gm/dl Albumin 3.0 gm/dl Globulin 3.7 gm/dl Albumin/Globulin Ratio 0.8 Thyroid Stimulating Hormone (TSH) 0.625 uIu/ml Free Thyroxine 1.19 ng/dl Bedside Lactic Acid Venous 0.47 mmol/L Urine Color YELLOW Urine Appearance CLOUDY Urine pH 6.5 Urine Specific [place] 1.014 Urine Protein TRACE Urine Glucose (UA) NEG Urine Ketones NEG Urine Occult Blood TRACE Urine Nitrite NEG Urine Bilirubin NEG Urine Urobilinogen NEG Urine Leukocyte Esterase MODERATE Urine WBC (Auto) >30 /hpf Urine RBC (Auto) 0-4 /hpf Urine Hyaline Casts (Auto) 1-5 /lpf Urine Epithelial Cells (Auto) 0-5 /lpf Urine Bacteria (Auto) 4+ Est Creatinine Clear Calc Drug Dose 37.1 ml/min Test 04/28/17 07:15 Bedside Glucose 79 mg/dl (Reshma Seymour PA-C) Assessment and Plan 81 yo F with PMHx: 4 mm left proximal to mid ureteral stone with UTI-- - Urology consulted - no immediate intervention needed at this time - KUB without stone. Initially urology considered ESWL as pt has required this in the past. - UCx with gram neg bacilli- preliminary report - follow - Allowed diet as pain better controlled - Zosyn IV day # 2 - zofran prn - Famotidine 20 mg IV q12h Systemic lupus erythematosus-- - Has just had a dosing of prednisone tapered to 10 mg daily, she does have some report of fatigue, but family requested we try to not increase her prednisone for stress dosing at this time. - Energy level seems improved per pt, will hold off on stress dose steriods at this time. Hypokalemia - Replaced via IV early this am when NPO - pt did not tolerate due to burning sensation in IV - switched to PO now as she is allowed diet - Follow am prp Hypothyroidism -continue levothyroxine sodium at 75 g daily. GERD -on Nexium and ranitidine as outpatient. Hold oral medications for possible procedure, and place on famotidine IV as noted above. Peripheral neuropathy- -resume Lyrica 50 mg BID Vitamin B12 deficiency - resume DVT ppx: teds, scds, ambulatory CODE STATUS: DNR Disposition: From home, lives alone, CM to assist with d/c planning, PT/OT consulted. Possible d/c within 1 day Discussion held with [place], patient's daughter. She was update and all her questions and concerns were answered. Discussion regarding code status was held and she is a DNR. (Reshma Seymour, PALavernC) I agree with above note after examining patient and discussing my plan of care with patient and APC. My physical exam did not differ from the one presented above. I agree with analysis and plan discussed in above note. (Landen Sanders M.D.)
--- NOTE | 2017-04-28 09:44 | DIAGNOSTIC IMAGING REPORT ---
KUB HISTORY: left ureteral stone COMPARISON: Abdomen and pelvis CT 04/27/2017. FINDINGS: The bowel gas pattern is unremarkable. There are no dilated loops of small bowel to suggest an obstruction. There is a punctate stone within the upper pole of the left kidney. Additional bilateral renal calculi are obscured by overlying bowel gas. No definite left ureteral calculi. Punctate calcification adjacent to the left L5 pedicle screw does not appear to correspond to the left ureteral stone on the prior CT. Calcifications in the deep pelvis favor phleboliths. Postoperative changes within the lumbar spine. Bilateral hip arthroplasties. Old compression deformities within the lower thoracic spine remain unchanged. No pneumoperitoneum or pneumatosis. IMPRESSION: 1. Left sided nephrolithiasis. The right renal stone seen on the prior study is not clearly identified. 3. The left ureteral stone is also obscured by overlying bowel gas. Electronically signed by: Gary Duran M.D. 04/28/2017 9:42 AM Dictated Date/Time: 04/28/2017 9:38 AM
[2017-04-28] MEDS ORDERED: POTASSIUM CHLR 10 MEQ / WTR 10 MEQ in PREMIXED WATER 100 ML IV SCH (09:45)
[2017-04-28] MEDS ORDERED: NURSING VERBAL MED ORDER ONE (11:15)
[2017-04-28] MEDS ORDERED: POTASSIUM CHLORIDE 20 MEQ TABCR PO ONE (11:30)
[2017-04-28 16:11] VITALS: BP 149/79; PULSE 87; TEMP 36.9; O2SAT 94
[2017-04-28] MEDS: NSS + 20MEQ KCL 1000ML 1,000 ML IV SCH (16:39)
[2017-04-28 23:17] VITALS: BP 182/81; PULSE 78; TEMP 36.9; O2SAT 94
[2017-04-28 23:45] VITALS: BP 191/84
[2017-04-29] VITALS (9 sets, daily range): BP systolic 113–187; BP diastolic 67–97; PULSE 79–91; TEMP 36.2–36.5; O2SAT 94–98
[2017-04-29] MEDS: HydrALAZINE HCL 20 MG/ML VIAL IV. PRN ×2 (01:11→07:42)
[2017-04-29] MEDS: FAMOTIDINE IV INJ 20 MG in DEXTROSE 5% 100ML 100 ML IV SCH (04:07)
[2017-04-29] MEDS: LEVOTHYROXINE 75 MCG TAB PO SCH (06:01)
[2017-04-29 06:48] LABS: BASO % 0.1 %; BASO ABS # 0.01 K/uL (0-0.2); COMPLETE YES; EOS % 0.5 %; HEMATOCRIT 33.6 % (37-47); LYMPH % 20.2 %; LYMPH ABS # 2.37 K/uL (1.2-3.4); MEAN CELL VOLUME 94.6 fL (80-100); MEAN CORPUSCULAR HEMOGLOBIN 31.8 pg (25-34); MEAN CORPUSCULAR HGB CONC 33.6 g/dl (32-36); MEAN PLATELET VOLUME 9.3 fL (7.4-10.4); MONO % 10.2 %; PLATELET COUNT 336 K/uL (130-400); RED BLOOD COUNT 3.55 M/uL (4.2-5.4); WHITE BLOOD COUNT 11.72 K/uL (4.8-10.8)
[2017-04-29 06:56] LABS: PARTIAL THROMBOPLASTIN RATIO 1.1; PROTHROMBIN TIME (PATIENT) 10.5 SECONDS (9.0-12.0)
[2017-04-29 07:19] LABS: BUN/CREATININE RATIO 17.3 (10-20); CALCIUM 8.9 mg/dl (8.5-10.1); CREATININE 1.01 mg/dl (0.60-1.20); MAGNESIUM 2.3 mg/dl (1.8-2.4); POTASSIUM 3.6 mmol/L (3.5-5.1)
[2017-04-29] MEDS: NSS + 20MEQ KCL 1000ML 1,000 ML IV SCH (07:29)
[2017-04-29] MEDS: ACETAMINOPHEN IV 100 ML IV PRN (07:42)
--- NOTE | 2017-04-29 08:26 | Progress Note ---
Subjective Date of Service: Apr 29, 2017. (Arlet Young CRNP) Subjective Pt evaluation today including: conversation w/ patient, chart review, lab review Voiding: incontinence 81 yo female with left ureteral stone and UTI. Pt continues to have lower abdominal pain this morning. Also c/o incontinence and frequency of urination. Denies dysuria or hematuria. Left ureteral stone not visualized on KUB yesterday. UC&S growing multi-drug resistant e coli. It is sensitive to Zosyn. White count continues to improve at 11.72. Cr remains normal. She remains afebrile, but is noted to be hypertensive at 187/97. (Arlet Young CRNP) Problem List Medical Problems: (1) Acute kidney injury Status: Acute (2) Altered mental state Status: Acute (3) Compression fx, thoracic spine Status: Acute (4) Failure of outpatient treatment Status: Acute (5) Generalized weakness Status: Acute (6) Leukocytosis Status: Acute (7) Sepsis secondary to UTI Status: Acute (8) UTI (urinary tract infection) Status: Acute (9) UTI (urinary tract infection) Status: Acute (10) Weakness Status: Acute Surgical Problems: (1) History of esophageal dilatation Status: Chronic (Arlet Young CRNP) Review of Systems Constitutional: No fever, No chills Respiratory: + shortness of breath (chronic per the pt) Cardiac: No chest pain Abdomen: No pain, No nausea, No vomiting Female : + incontinence, No dysuria, No hematuria Heme: No abnormal bleeding/bruising (Arlet Young CRNP) Objective Vital Signs Date Time Temp Pulse Resp B/P (MAP) Pulse Ox O2 Delivery O2 Flow Rate FiO2 04/29/17 07:43 187/97 (127) 04/29/17 07:35 36.2 90 16 175/80 (111) 95 Room Air 04/29/17 01:40 157/76 (103) 04/29/17 00:00 Room Air 04/28/17 23:45 191/84 (119) 04/28/17 23:17 36.9 78 20 182/81 (114) 94 Room Air 04/28/17 16:11 36.9 87 18 149/79 (102) 94 Room Air 04/28/17 16:00 Room Air 04/28/17 08:30 Room Air 04/28/17 08:12 36.8 74 18 146/75 (98) 92 (Arlet Young CRNP) Physical Exam General Appearance: no apparent distress Eyes: normal inspection ENT: hearing grossly normal Neck: no JVD Respiratory/Chest: no respiratory distress, no accessory muscle use Cardiovascular: no JVD Abdomen: + tenderness (right and left lower quadrant and suprapubic region) Extremities: normal inspection Neurologic/Psychiatric: alert, normal mood/affect, oriented x 3 Skin: normal color (Arlet Young CRNP) Laboratory Results Last 24 Hours Test 04/28/17 11:45 04/28/17 16:47 04/28/17 21:00 04/29/17 06:25 Bedside Glucose 71 mg/dl 131 mg/dl 161 mg/dl White Blood Count 11.72 K/uL Red Blood Count 3.55 M/uL Hemoglobin 11.3 g/dL Hematocrit 33.6 % Mean Corpuscular Volume 94.6 fL Mean Corpuscular Hemoglobin 31.8 pg Mean Corpuscular Hemoglobin Concent 33.6 g/dl Platelet Count 336 K/uL Mean Platelet Volume 9.3 fL Neutrophils (%) (Auto) 68.0 % Lymphocytes (%) (Auto) 20.2 % Monocytes (%) (Auto) 10.2 % Eosinophils (%) (Auto) 0.5 % Basophils (%) (Auto) 0.1 % Neutrophils # (Auto) 7.96 K/uL Lymphocytes # (Auto) 2.37 K/uL Monocytes # (Auto) 1.20 K/uL Eosinophils # (Auto) 0.06 K/uL Basophils # (Auto) 0.01 K/uL RDW Standard Deviation 52.8 fL RDW Coefficient of Variation 15.1 % Immature Granulocyte % (Auto) 1.0 % Immature Granulocyte # (Auto) 0.12 K/uL Prothrombin Time 10.5 SECONDS Prothromb Time International Ratio 1.0 Activated Partial Thromboplast Time 27.8 SECONDS Partial Thromboplastin Ratio 1.1 Sodium Level 142 mmol/L Potassium Level 3.6 mmol/L Chloride Level 111 mmol/L Carbon Dioxide Level 22 mmol/L Anion Gap 9.0 mmol/L Blood Urea Nitrogen 17 mg/dl Creatinine 1.01 mg/dl Est Creatinine Clear Calc Drug Dose 39.3 ml/min Estimated GFR () 60.0 Estimated GFR (Non- 51.8 BUN/Creatinine Ratio 17.3 Random Glucose 91 mg/dl Calcium Level 8.9 mg/dl Magnesium Level 2.3 mg/dl Test 04/29/17 07:10 Bedside Glucose 80 mg/dl (Arlet Young CRNP) Assessment and Plan A/P: 4mm left ureteral stone, UTI Pt with multi-drug resistant UTI. Unfortunately she is allergic to Bactrim ( causes swelling of the lips and mouth sores per pt). Could consider Macrobid, but this is unlikely to be as effective if she is considered to be septic. Will consult ID for their input. May need to d/c her home on IV abx. Stone not visualized on KUB, and Cr has improved. ? passed, but she continues to have lower abdominal pain and urinary symptoms which may be r/t her UTI. Will check a non-contrast CT this morning for definitive evaluation. She will remain NPO until she has had her CT. Will continue to follow along with primary service. (Arlet Young CRNP) Addendum: Repeat CT shows left obstructing stone still in ureter. Plan for urgent stent placement due to UTI/Sepsis (Sam Mauricio D.O.)
[2017-04-29] MEDS: PIPERACILL/TAZOBAC IV 3.375 GM in DEXTROSE 5% 100ML 100 ML IV SCH ×2 (08:42→16:30)
--- NOTE | 2017-04-29 09:05 | DIAGNOSTIC IMAGING REPORT ---
CT SCAN OF THE ABDOMEN AND PELVIS WITHOUT CONTRAST CLINICAL HISTORY: Left flank pain. Ureteral calculus. COMPARISON STUDY: 04/25/2017 TECHNIQUE: CT scan of the abdomen and pelvis was performed from the lung bases to the proximal femurs. Images are reviewed in the axial, sagittal, and coronal planes. IV contrast was not administered for this examination. A dose lowering technique was utilized adhering to the principles of ALARA. CT DOSE: 409.72 mGy.cm FINDINGS: Lower chest: There are bibasal atelectatic changes. There is a right basilar pleural-based fat-containing lesion likely representing a Bochdalek hernia. There is a hiatal hernia Liver: The unenhanced liver is normal in size, contour, and attenuation. There is no intrahepatic biliary ductal dilatation. Gallbladder: Not visualized and presumed surgically absent Spleen: Normal in size and attenuation. Pancreas: Unremarkable. Adrenal glands: Unremarkable. Kidneys: 2 left renal calculi are visualized, the largest of which measures 4 mm. There is a 2 mm right renal calculus. There is no significant hydronephrosis. There is a persistent 3.5 mm proximal left ureteral calculus. Bowel: There are no transition zone to indicate bowel obstruction. There is extensive colonic diverticulosis. There are no acute peridiverticular inflammatory changes. There are no findings to indicate acute appendicitis. Peritoneum: There is no intraperitoneal free air or abdominal ascites. There is a small fat-containing umbilical hernia. Vasculature: The abdominal aorta is normal in course and caliber. Adenopathy: None. Pelvic viscera: The pelvis is largely obscured due to artifact from bilateral hip arthroplasties. Skeletal structures: There are old ischio pubic ring fractures. There is an old fracture the right anterior sacrum. There is slight right-sided sacral sclerosis suggesting an old healed fracture. There are postsurgical changes of a lumbar spinal fusion. IMPRESSION: 1. Bilateral nephrolithiasis 2. No significant change in the 3.5 mm proximal left ureteral calculus. No evidence of significant hydronephrosis 3. Hiatal hernia 4. Diverticulosis. No evidence of acute peridiverticular inflammatory change 5. No evidence of bowel obstruction. No evidence of free air Electronically signed by: Mayito Dong M.D. 04/29/2017 9:03 AM Dictated Date/Time: 04/29/2017 8:56 AM
[2017-04-29] MEDS ORDERED: LIDOCAINE HCL 2% 2 ML VIAL (20MG/ML) ONE (10:01)
[2017-04-29] MEDS ORDERED: PROPOFOL IV EMULSION 10 MG/ML 20 ML VIAL IV ONE (10:01)
[2017-04-29] MEDS ORDERED: MIDAZOLAM HCL 1 MG/ML 2ML VIAL ONE (10:02)
[2017-04-29] MEDS ORDERED: FENTANYL CITRATE INJ 50 MCG/1 ML 2 ML VIAL ONE (10:02)
--- NOTE | 2017-04-29 10:42 | Medical Consult ---
Consultation Date of Consultation: Apr 29, 2017. Attending Physician: Dequan Hoffmann M.D. Reason for Consultation: Multidrug resistant UTI History of Present Illness 81-year-old female with history of recurrent urinary tract infections, stone disease, recently admitted with drug-resistant UTI treated with meropenem, now presents with several days of worsening dizziness, some dysuria, frequency, and mild confusion. Has been found to have left ureteral stone, and cultures now growing an ESBL producing E coli. Currently on Zosyn with clinical improvement and decrease in white blood cell count. Awaiting further imaging studies. Still with some left-sided abdominal pain, 2 out 10 in intensity. No fever. Past Medical/Surgical History Medical Problems: (1) Acute kidney injury Status: Acute (2) Altered mental state Status: Acute (3) Compression fx, thoracic spine Status: Acute (4) Failure of outpatient treatment Status: Acute (5) Generalized weakness Status: Acute (6) Leukocytosis Status: Acute (7) Sepsis secondary to UTI Status: Acute (8) UTI (urinary tract infection) Status: Acute (9) UTI (urinary tract infection) Status: Acute (10) Weakness Status: Acute Surgical Problems: (1) History of esophageal dilatation Status: Chronic Medical Problems: (1) Benign hypertension (2) Chronic kidney disease stage 3 (3) Depression (4) Diverticular disease of colon (5) Encephalopathy (6) Gastroesophageal reflux disease (7) History of calculus of kidney (8) History of Clostridium difficile infection (9) History of esophageal stricture (10) Hypothyroidism (11) Osteoporosis (12) Recurrent UTI (13) S/P ECT (electroconvulsive therapy) (14) SIRS (systemic inflammatory response syndrome) (15) Spinal stenosis (16) Spondylolisthesis (17) Systemic lupus erythematosus (18) Trigeminal neuralgia (19) Urinary incontinence (20) Urinary tract infection Surgical Problems: (1) History of esophageal dilatation (2) S/P lumbar fusion (3) Stat post lithotripsy (4) Status post cataract extraction (5) Status post cholecystectomy (6) Status post hip replacement (7) Status post hysterectomy Family History Depression Diabetes mellitus Malignancy (prostate cancer) Social History Smoking Status: Never Smoker Smokeless Tobacco Use: No Alcohol Use: none Drug Use: none Marital Status: Housing Status: lives with family Occupation Status: retired Allergies Coded Allergies: Sulfamethoxazole w/Trimethoprim (Verified Allergy, Severe, "lips swell", 04/27/17) Sulfa Antibiotics (Verified Allergy, Unknown, swelling of lips, 04/27/17) Codeine (Verified Adverse Reaction, Mild, "nauseated", 04/27/17) Propoxyphene (Verified Adverse Reaction, Mild, "nauseated", 04/27/17) Current Inpatient Medications Current Inpatient Medications Medications (Trade) Dose Ordered Sig/Sana Route Start Time Stop Time Status Last Admin Dose Admin Acetaminophen (Tylenol Tab) 650 mg Q4H PRN PO 04/27/17 20:00 05/27/17 19:59 Baclofen (Lioresal Tab) 10 mg HS PRN PO 04/27/17 20:00 05/27/17 19:59 Duloxetine HCl (Cymbalta Cap) 60 mg QAM PO 04/28/17 09:00 05/28/17 08:59 04/28/17 08:14 60 MG Levothyroxine Sodium (Synthroid Tab) 75 mcg DAILYBB PO 04/28/17 06:30 05/28/17 06:29 04/29/17 06:01 75 MCG Lorazepam (Ativan Tab) 0.5 mg Q8H PRN PO 04/27/17 20:00 05/27/17 19:59 Prednisone (PredniSONE TAB) 10 mg QDL PO 04/28/17 12:00 05/28/17 11:59 04/28/17 12:23 10 MG Senna/Docusate Sodium (Senokot S Tab) 1 tab BID PO 04/27/17 21:00 05/27/17 20:59 04/28/17 20:37 1 TAB Piperacillin Sod/ Tazobactam Sod 3.375 gm/Dextrose 115 ml @ 28.75 mls/ hr Q8H IV 04/28/17 00:00 05/03/17 00:00 04/29/17 08:42 28.75 MLS/HR Ondansetron HCl (Zofran Inj) 4 mg Q6H PRN IV 04/27/17 20:00 05/27/17 19:59 Acetaminophen 100 ml @ 400 mls/hr Q8H PRN IV 04/27/17 20:00 05/27/17 19:59 04/29/17 07:42 400 MLS/HR Potassium Chloride/Sodium Chloride 1,000 ml @ 60 mls/hr [id number] IV 04/27/17 21:30 05/27/17 21:29 04/29/17 07:29 60 MLS/HR Piperacillin Sod/ Tazobactam Sod (Consult) 1 ea UD PRN N/A 04/27/17 21:30 05/27/17 21:29 Famotidine 20 mg/ Dextrose 102 ml @ 200 mls/hr Q12H IV 04/28/17 04:00 05/28/17 03:59 04/29/17 04:07 200 MLS/HR Hydralazine HCl (HydrALAZINE INJ) 10 mg Q6 PRN IV. 04/29/17 00:15 05/29/17 00:14 04/29/17 07:42 10 MG Review of Systems All systems were reviewed and are negative except as per HPI Physical Exam Date Time Temp Pulse Resp B/P (MAP) Pulse Ox O2 Delivery O2 Flow Rate FiO2 04/29/17 10:23 95 Room Air 04/29/17 08:23 146/72 (96) 04/29/17 08:00 Room Air 04/29/17 07:43 187/97 (127) 04/29/17 07:35 36.2 90 16 175/80 (111) 95 Room Air 04/29/17 01:40 157/76 (103) 04/29/17 00:00 Room Air 04/28/17 23:45 191/84 (119) 04/28/17 23:17 36.9 78 20 182/81 (114) 94 Room Air 04/28/17 16:11 36.9 87 18 149/79 (102) 94 Room Air 04/28/17 16:00 Room Air General Appearance: WD/WN, no apparent distress Head: normocephalic, atraumatic Eyes: normal inspection, EOMI, sclerae normal ENT: normal ENT inspection, pharynx normal Neck: supple, no adenopathy, thyroid normal, trachea midline Respiratory/Chest: chest non-tender, lungs clear, normal breath sounds, no respiratory distress Cardiovascular: regular rate, rhythm, no gallop, no murmur Abdomen/GI: normal bowel sounds, non tender, soft, no organomegaly Back: normal inspection, + left CVA tenderness Extremities/Musculoskelatal: no calf tenderness, + pedal edema Neurologic/Psych: alert, oriented x 3 Skin: normal color, warm/dry, no rash Lymphatic: no adenopathy Laboratory Results RUN DATE: 04/29/17 [facility] PAGE 1 RUN TIME: 08 Specimen Inquiry PATIENT: AMAURY WILDE LOC: [facility] U # : [id number] AGE/SX: 81/F ROOM: [facility] REG : 04/27/[address]: Dequan Hoffmann M.D : 1935 BED: 1 DIS : STATUS: ADM IN TLOC: SPEC #: [id number] LAKHWINDER: 04/27/17 STATUS: COMP REQ #: [id number] RECD: 04/27/[address]: Venkat Houston M.D. SOURCE: URINE CATH ENTR: 04/27/[address] [facility] [address]: Topher Artis M.D. [facility]: ORDERED: CULTURE UR CATH Procedure Result Verified Site URINE CULTURE Final 04/29/17-0857 Organism 1 ESCHERICHIA COLI COLONY COUNT >100,000 CFU/ml SENS SENSITIVITY TO FOLLOW SENSITIVITY RESULT INDICATES AN ORGANISM WITH AN EXTENDED SPECTRUM BETA LACTAMASE.THIS IS CONSIDERED A MULTIDRUG RESISTANT ORGANISM.PHONED TO ERMIAS JIMENEZ ON 04/29/17 AT 0703 BY Brian Anderson. Results were verbalized back to COLIN. RESULTS WERE ALSO CALLED TO [facility] INFECTION CONTROL ANSWERING MACHINE ON 04/29/17 BY COLIN. 1. ESCHERICHIA COLI Target Route Dose RX AB Cost M.I.C. IQ ------ ----- ------ -- ------ -------- - ------ TRIMET/SULFA S <=2/38 AMPICILLIN R >16 AMPICILLIN/SUL R >16/8 CEFAZOLIN R >16 CEFOXITIN S <=8 CEFOTAXIME R >32 CEFTRIAXONE R >32 CEFEPIME R >16 CEFUROXIME R >16 IMIPENEM S <=1 GENTAMICIN R >8 TOBRAMYCIN R >8 AMIKACIN S <=16 CIPROFLOXACIN R >2 LEVOFLOXACIN R >4 ERTAPENEM S <=1 NITROFURANTOIN S <=32 PIP/TAZO S <=16 S = SENSITIVE I = INTERMEDIATE R = RESISTANT END OF REPORT Last 24 Hours Test 04/28/17 11:45 04/28/17 16:47 04/28/17 21:00 04/29/17 06:25 Bedside Glucose 71 mg/dl 131 mg/dl 161 mg/dl White Blood Count 11.72 K/uL Red Blood Count 3.55 M/uL Hemoglobin 11.3 g/dL Hematocrit 33.6 % Mean Corpuscular Volume 94.6 fL Mean Corpuscular Hemoglobin 31.8 pg Mean Corpuscular Hemoglobin Concent 33.6 g/dl Platelet Count 336 K/uL Mean Platelet Volume 9.3 fL Neutrophils (%) (Auto) 68.0 % Lymphocytes (%) (Auto) 20.2 % Monocytes (%) (Auto) 10.2 % Eosinophils (%) (Auto) 0.5 % Basophils (%) (Auto) 0.1 % Neutrophils # (Auto) 7.96 K/uL Lymphocytes # (Auto) 2.37 K/uL Monocytes # (Auto) 1.20 K/uL Eosinophils # (Auto) 0.06 K/uL Basophils # (Auto) 0.01 K/uL RDW Standard Deviation 52.8 fL RDW Coefficient of Variation 15.1 % Immature Granulocyte % (Auto) 1.0 % Immature Granulocyte # (Auto) 0.12 K/uL Prothrombin Time 10.5 SECONDS Prothromb Time International Ratio 1.0 Activated Partial Thromboplast Time 27.8 SECONDS Partial Thromboplastin Ratio 1.1 Sodium Level 142 mmol/L Potassium Level 3.6 mmol/L Chloride Level 111 mmol/L Carbon Dioxide Level 22 mmol/L Anion Gap 9.0 mmol/L Blood Urea Nitrogen 17 mg/dl Creatinine 1.01 mg/dl Est Creatinine Clear Calc Drug Dose 39.3 ml/min Estimated GFR () 60.0 Estimated GFR (Non- 51.8 BUN/Creatinine Ratio 17.3 Random Glucose 91 mg/dl Calcium Level 8.9 mg/dl Magnesium Level 2.3 mg/dl Test 04/29/17 07:10 Bedside Glucose 80 mg/dl Patient Name: AMAURY WILDE Unit Number: [id number] Dictated: 04/29/17855 Transcribed: 04/29/17855 ARG Printed Date/Time: [~ rep prt dt]/[~ rep prt tm] [~ rep ct labl] - [~ rep ct ivnm] [facility] [place] [address] Dictated: 04/29/17855 Transcribed: 04/29/17855 ARG Printed Date/Time: [~ rep prt dt]/[~ rep prt tm] [~ rep ct labl] - [~ rep ct ivnm] CT SCAN OF THE ABDOMEN AND PELVIS WITHOUT CONTRAST CLINICAL HISTORY: Left flank pain. Ureteral calculus. COMPARISON STUDY: 04/25/2017 TECHNIQUE: CT scan of the abdomen and pelvis was performed from the lung bases to the proximal femurs. Images are reviewed in the axial, sagittal, and coronal planes. IV contrast was not administered for this examination. A dose lowering technique was utilized adhering to the principles of ALARA. CT DOSE: 409.72 mGy.cm FINDINGS: Lower chest: There are bibasal atelectatic changes. There is a right basilar pleural-based fat-containing lesion likely representing a Bochdalek hernia. There is a hiatal hernia Liver: The unenhanced liver is normal in size, contour, and attenuation. There is no intrahepatic biliary ductal dilatation. Gallbladder: Not visualized and presumed surgically absent Spleen: Normal in size and attenuation. Pancreas: Unremarkable. Adrenal glands: Unremarkable. Kidneys: 2 left renal calculi are visualized, the largest of which measures 4 mm. There is a 2 mm right renal calculus. There is no significant hydronephrosis. There is a persistent 3.5 mm proximal left ureteral calculus. Bowel: There are no transition zone to indicate bowel obstruction. There is extensive colonic diverticulosis. There are no acute peridiverticular inflammatory changes. There are no findings to indicate acute appendicitis. Peritoneum: There is no intraperitoneal free air or abdominal ascites. There is a small fat-containing umbilical hernia. Vasculature: The abdominal aorta is normal in course and caliber. Adenopathy: None. Pelvic viscera: The pelvis is largely obscured due to artifact from bilateral hip arthroplasties. Skeletal structures: There are old ischio pubic ring fractures. There is an old fracture the right anterior sacrum. There is slight right-sided sacral sclerosis suggesting an old healed fracture. There are postsurgical changes of a lumbar spinal fusion. IMPRESSION: 1. Bilateral nephrolithiasis 2. No significant change in the 3.5 mm proximal left ureteral calculus. No evidence of significant hydronephrosis 3. Hiatal hernia 4. Diverticulosis. No evidence of acute peridiverticular inflammatory change 5. No evidence of bowel obstruction. No evidence of free air Electronically signed by: Mayito Dong M.D. 04/29/2017 9:03 AM Dictated Date/Time: 04/29/2017 8:56 AM The status of this report is Signed. Draft = Not yet reviewed or approved by Radiologist. Signed = Reviewed and approved by Radiologist. <AttendingPhy>Dequan Hoffmann M.D.</AttendingPhy> <FamilyPhy>Topher Artis M.D.</FamilyPhy> <PrimaryPhy>Topher Artis M.D.</PrimaryPhy> <UnitNumber> [id number]</UnitNumber> <VisitNumber>[id number]</VisitNumber> <PatientName> AMAURY WILDE</PatientName> <DateOfBirth>1935</DateOfBirth> <Location> C.MS2[facility]</Location> <ServiceDate>04/27/17</ServiceDate> <MNE>ESINDI</MNE> < OrderingPhy>Arlet Young</OrderingPhy> <OrderingPhyMNE>f rep ord dr cope</OrderingPhyMNE> <DictatingPhyMNE>f rep dict dr cope</DictatingPhyMNE> < CCListMNE>f rep ct anatoliy</CCListMNE> <AdmittingPhyMNE>f pt admit dr cope</ AdmittingPhyMNE> <AttendingPhyMNE>f pt attend dr cope</AttendingPhyMNE> <ConsultingPhyMNE>f pt consult dr cope</ConsultingPhyMNE> <FamilyPhyMNE>f pt fam dr cope</FamilyPhyMNE> <OtherPhyMNE>f pt other dr cope</OtherPhyMNE> < PrimaryPhyMNE>f pt prim care dr cope</PrimaryPhyMNE> <ReferringPhyMNE>f pt referring dr cope</ReferringPhyMNE> Assessment & Plan 1-year-old female with 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 She appears to be responding to Zosyn, but may want to consider changing to ertapenem to allow easier outpatient therapy. Will likely require a more prolonged course of IV therapy, at least several weeks. Will follow.
--- NOTE | 2017-04-29 10:47 | Hospitalist Progress Note ---
Hospitalist Progress Note Date of Service Apr 29, 2017. (Reshma Seymour PA-C) Subjective Pt evaluation today including: conversation w/ patient, physical exam, chart review, lab review, review of studies Pain: Mild R flank pain rated 5/10 Voiding: no voiding problems The patient was seen and examined this morning. Pt reports doing well this morning other than mild R flank pain which is essentially unchanged compared to yesterday. She had a repeat CT scan this morning showing the L ureteral stone of 3.[address], as unchanged. She denies any acute abdominal pain, nausea, vomiting. She is urinating without difficulty, no hematuria. She denies any other acute complaints. Constitutional: No fever, No chills Eyes: No diplopia, No problem reported ENT: No nasal symptoms, No trouble swallowing Respiratory: No cough, No shortness of breath Cardiovascular: No chest pain, No edema, No palpitations Abdomen: + pain (R flank), No nausea, No vomiting, No diarrhea, No constipation Musculoskeletal: No joint pain, No muscle pain, No swelling Female : + incontinence, No dysuria, No hematuria Neurologic: No weakness, No numbness/tingling Endo: No fatigue Skin: No rash, No itch (Reshma Seymour PA-C) Objective Vital Signs Date Time Temp Pulse Resp B/P (MAP) Pulse Ox O2 Delivery O2 Flow Rate FiO2 04/29/17 08:23 146/72 (96) 04/29/17 08:00 Room Air 04/29/17 07:43 187/97 (127) 04/29/17 07:35 36.2 90 16 175/80 (111) 95 Room Air 04/29/17 01:40 157/76 (103) 04/29/17 00:00 Room Air 04/28/17 23:45 191/84 (119) 04/28/17 23:17 36.9 78 20 182/81 (114) 94 Room Air 04/28/17 16:11 36.9 87 18 149/79 (102) 94 Room Air 04/28/17 16:00 Room Air (Reshma Seymour PA-C) Physical Exam Notes: Physical Exam General Appearance: WD/WN, no apparent distress Eyes: PERRL, EOMI ENT: hearing grossly normal, pharynx normal, + pertinent finding (MMM) Neck: supple, no JVD Respiratory/Chest: lungs clear, no respiratory distress, no accessory muscle use Cardiovascular: regular rate, rhythm, no JVD, no murmur Abdomen: normal bowel sounds, non tender, soft, + R CVA tenderness with palpation Extremities: non-tender, no calf tenderness, + pedal edema (1+ pitting BLE) Neurologic/Psychiatric: alert, normal mood/affect, oriented x 3 Skin: normal color, warm/dry (Reshma Seymour PA-C) Laboratory Results Last 24 Hours Test 04/28/17 11:45 04/28/17 16:47 04/28/17 21:00 04/29/17 06:25 Bedside Glucose 71 mg/dl 131 mg/dl 161 mg/dl White Blood Count 11.72 K/uL Red Blood Count 3.55 M/uL Hemoglobin 11.3 g/dL Hematocrit 33.6 % Mean Corpuscular Volume 94.6 fL Mean Corpuscular Hemoglobin 31.8 pg Mean Corpuscular Hemoglobin Concent 33.6 g/dl Platelet Count 336 K/uL Mean Platelet Volume 9.3 fL Neutrophils (%) (Auto) 68.0 % Lymphocytes (%) (Auto) 20.2 % Monocytes (%) (Auto) 10.2 % Eosinophils (%) (Auto) 0.5 % Basophils (%) (Auto) 0.1 % Neutrophils # (Auto) 7.96 K/uL Lymphocytes # (Auto) 2.37 K/uL Monocytes # (Auto) 1.20 K/uL Eosinophils # (Auto) 0.06 K/uL Basophils # (Auto) 0.01 K/uL RDW Standard Deviation 52.8 fL RDW Coefficient of Variation 15.1 % Immature Granulocyte % (Auto) 1.0 % Immature Granulocyte # (Auto) 0.12 K/uL Prothrombin Time 10.5 SECONDS Prothromb Time International Ratio 1.0 Activated Partial Thromboplast Time 27.8 SECONDS Partial Thromboplastin Ratio 1.1 Sodium Level 142 mmol/L Potassium Level 3.6 mmol/L Chloride Level 111 mmol/L Carbon Dioxide Level 22 mmol/L Anion Gap 9.0 mmol/L Blood Urea Nitrogen 17 mg/dl Creatinine 1.01 mg/dl Est Creatinine Clear Calc Drug Dose 39.3 ml/min Estimated GFR () 60.0 Estimated GFR (Non- 51.8 BUN/Creatinine Ratio 17.3 Random Glucose 91 mg/dl Calcium Level 8.9 mg/dl Magnesium Level 2.3 mg/dl Test 04/29/17 07:10 Bedside Glucose 80 mg/dl (Reshma Seymour PA-C) Assessment and Plan 81 yo F with PMHx: 4 mm left proximal to mid ureteral stone with UTI-- - Urology consulted -repeat CT completed this morning showing no interval change , L ureteral stone measuring 3.5 mm in size. Pt interestingly having mild R flank pain, worse with palpation. She denies acute abdominal pain, n/v/d/c/. Plan involves ureteral stent placement by urology this morning Discussion was held with patient regarding stent placement, as well as her daughters Mali and Rayna over the phone at 10:30a. Mali will be coming to the hospital to speak with urology prior to procedure for stent placement since they were unaware. - UCx with e.coli and multi drug resistance - ID consulted - sensitive to zosyn so will continue for now. Pt may require IV abx for extended timeframe - will await ID recs - appreciate. - Zosyn IV day # 3 - zofran prn - Famotidine 20 mg IV q12h Systemic lupus erythematosus-- - Prednisone tapered to 10 mg daily prior to admission - Energy level seems improved per pt, will hold off on stress dose steriods at this time. Hypokalemia - replaced as needed - Follow am prp Hypothyroidism -continue levothyroxine sodium at 75 g daily GERD - on Nexium and ranitidine as outpatient. - Hold oral medications for possible procedure, and place on famotidine IV as noted above. Peripheral neuropathy- - resume Lyrica 50 mg BID Vitamin B12 deficiency - resume DVT ppx: teds, scds, ambulatory CODE STATUS: DNR Disposition: From home, lives alone, CM to assist with d/c planning, PT/OT consulted and recommending SNF. Discussion held with [place] and Rayna this morning and updated on the plan, all their questions and concerns were answered. (Reshma Seymour PA-C) I agree with above note after examining patient and discussing my plan of care with patient and APC. My physical exam did not differ from the one presented above. I agree with analysis and plan discussed in above note. (Landen Sanders M.D.)
--- NOTE | 2017-04-29 10:59 | History & Physical Bridge Note ---
H&P Re-Evaluation Bridge Note: I have examined the patient, reviewed the History & Physical and in the interval since the performance of the History & Physical I have noted the following changes of clinical significance: Left obstructing stone with sepsis/uti. Needs urgent cystoscopy and left stent. Discussed with family and consent taken via nursing from the phone.
[2017-04-29] MEDS ORDERED: PROMETHAZINE HCL INJ 6.25 MG in SODIUM CHLORIDE 0.9% 50ML 50 ML IV PRN (11:15)
[2017-04-29] MEDS ORDERED: EpHEDrine SULFATE INJ 50 MG/ML AMP IV PRN (11:15)
[2017-04-29] MEDS ORDERED: FENTANYL CITRATE INJ 50 MCG/1 ML 2 ML VIAL IV PRN (11:15)
[2017-04-29] MEDS ORDERED: ATROPINE SULFATE 0.1 MG/ML 5ML SYR IV PRN (11:15)
[2017-04-29] MEDS ORDERED: ONDANSETRON INJ 2 MG/ML 2 ML VIAL IV PRN (11:15)
[2017-04-29] MEDS ORDERED: CONRAY 30% 150ML BOTTLE ONE (11:39)
--- NOTE | 2017-04-29 12:11 | [facility] Operative Report ---
Operative Report Operative Date Apr 29, 2017. 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 Risks and benefits discussed at length with patient and family. Plan to proceed with urgent stent. Description of Procedure Patient was consented and brought back to the operating room. Patient was placed under anesthesia in the supine position. Patient was prepped and draped in the regular sterile fashion in the dorsal lithotomy position. A time out was completed. A 30degree Cystoscope was placed into the bladder and the entire bladder was examined. The UO's were identified. A moderate amount of sediment was appreciated. The Left UO was cannulized with a catheter and a retrograde pyelogram was completed. A wire was then placed. With the wire in place, a 6 x [24] Double J stent was placed. It was confirmed with fluoroscopy. With the stent in place, the bladder was emptied. The scope was removed. The patient was cleaned, aroused from anesthesia, and transferred to the pacu in stable condition having tolerated the procedure well with no complications. I was present and participated in all aspects of the procedure. The patient will be monitored in the PACU until transferred. Will start on IV antifungal due to large sediment in bladder and draining from left kidney. I attest to the content of the Intraoperative Record and any orders documented therein. Any exceptions are noted below.
[2017-04-29] MEDS ORDERED: HYDROCODONE/ACETAMOPHEN 5/325MG TAB PO PRN (12:15)
--- NOTE | 2017-04-29 12:24 | Anesthesiology Progress Note ---
Anesthesia Post Op Note Date & Time Apr 29, 2017 at 12:23 Vital Signs Pain Intensity: 0 Vital Signs Past 12 Hours Date Time Temp Pulse Resp B/P (MAP) Pulse Ox O2 Delivery O2 Flow Rate FiO2 04/29/17 12:15 83 16 127/69 98 Nasal Cannula 2 04/29/17 12:05 84 16 114/62 99 Oxymask 10 04/29/17 11:58 36.1 85 20 106/62 99 Oxymask 10 04/29/17 10:23 95 Room Air 04/29/17 08:23 146/72 (96) 04/29/17 08:00 Room Air 04/29/17 07:43 187/97 (127) 04/29/17 07:35 36.2 90 16 175/80 (111) 95 Room Air 04/29/17 01:40 157/76 (103) Notes Mental Status: alert / awake / arousable, participated in evaluation Pt Amnestic to Procedure: Yes Nausea / Vomiting: adequately controlled Pain: adequately controlled Airway Patency, RR, SpO2: stable & adequate BP & HR: stable & adequate Hydration State: stable & adequate Anesthetic Complications: no major complications apparent
--- NOTE | 2017-04-29 12:28 | DIAGNOSTIC IMAGING REPORT ---
RETROGRADE INCLUDES KUB CLINICAL HISTORY: LT STENT stent placement TECHNIQUE: Image intensifier COMPARISON STUDY: None FINDINGS: Image intensifier was utilized for a left ureteral stent placement IMPRESSION: Left ureteral stent placement The above report was generated using voice recognition software. It may contain grammatical, syntax or spelling errors. Electronically signed by: Nicanor Cedeño M.D. 04/29/2017 12:27 PM Dictated Date/Time: 04/29/2017 12:26 PM
[2017-04-29] MEDS: DOCUSATE SODIUM/SENNA 50/8.6MG TAB PO SCH ×2 (13:16→21:00)
[2017-04-29] MEDS: DULOXETINE HCL 60 MG CAP PO SCH (13:16)
[2017-04-29] MEDS ORDERED: FLUCONAZOLE / NSS 200 MG in PREMIXED NSS 100 ML IV SCH (14:00)
[2017-04-29] MEDS ORDERED: SODIUM CHLORIDE 0.65% NA SOLN 45 ML (OCEAN) ONE (14:42)
[2017-04-29] MEDS: FAMOTIDINE 20 MG TAB PO SCH (21:01)
[2017-04-30] VITALS (7 sets, daily range): BP systolic 158–194; BP diastolic 79–98; PULSE 82–93; TEMP 36.7–36.9; O2SAT 93–95
[2017-04-30] MEDS: PIPERACILL/TAZOBAC IV 3.375 GM in DEXTROSE 5% 100ML 100 ML IV SCH ×2 (00:06→07:42)
[2017-04-30] MEDS: NSS + 20MEQ KCL 1000ML 1,000 ML IV SCH ×2 (02:07→16:43)
[2017-04-30] MEDS: LEVOTHYROXINE 75 MCG TAB PO SCH (06:09)
[2017-04-30 06:28] LABS: BASO % 0.2 %; BASO ABS # 0.02 K/uL (0-0.2); COMPLETE YES; EOS % 0.5 %; HEMATOCRIT 34.1 % (37-47); IG% 0.7 %; LYMPH % 22.8 %; LYMPH ABS # 2.08 K/uL (1.2-3.4); MEAN CELL VOLUME 95.8 fL (80-100); MEAN CORPUSCULAR HEMOGLOBIN 30.9 pg (25-34); MEAN CORPUSCULAR HGB CONC 32.3 g/dl (32-36); MEAN PLATELET VOLUME 9.4 fL (7.4-10.4); NEUT % 64.8 %; PLATELET COUNT 386 K/uL (130-400); RED BLOOD COUNT 3.56 M/uL (4.2-5.4); WHITE BLOOD COUNT 9.11 K/uL (4.8-10.8)
[2017-04-30 06:46] LABS: PARTIAL THROMBOPLASTIN RATIO 1.1; PROTHROMBIN TIME (PATIENT) 10.6 SECONDS (9.0-12.0)
[2017-04-30 07:00] LABS: BUN/CREATININE RATIO 17.2 (10-20); CALCIUM 8.9 mg/dl (8.5-10.1); CREATININE 1.12 mg/dl (0.60-1.20); MAGNESIUM 2.1 mg/dl (1.8-2.4); POTASSIUM 3.7 mmol/L (3.5-5.1)
[2017-04-30] MEDS: HydrALAZINE HCL 20 MG/ML VIAL IV. PRN (07:42)
[2017-04-30] MEDS: DOCUSATE SODIUM/SENNA 50/8.6MG TAB PO SCH ×2 (07:42→20:41)
[2017-04-30] MEDS: FAMOTIDINE 20 MG TAB PO SCH ×2 (07:43→20:42)
[2017-04-30] MEDS: DULOXETINE HCL 60 MG CAP PO SCH (07:43)
[2017-04-30] MEDS: PHENAZOPYRIDINE HCL 200 MG TAB PO SCH ×3 (08:28→20:42)
--- NOTE | 2017-04-30 09:35 | Hospitalist Progress Note ---
Hospitalist Progress Note Date of Service Apr 30, 2017. (Reshma Seymour PA-C) Subjective Pt evaluation today including: conversation w/ patient, physical exam, chart review, lab review, review of studies Pain: None PO Intake: Good Voiding: no voiding problems The patient was seen and examined this morning. Pt reports doing well this morning. She reports stent placement went well yesterday and without complications. She is urinating without dysuria or bright red hematuria. She has been eating and drinking well, had a BM this morning. Pt has been up and working with physical therapy. She denies any acute complaints. Pt is agreeable to rehab stay after discharge. Denies fever, chills, sweats, chest pain, sob, abd pain, n/d/v/c, lightheadedness or dizziness. ROS: 6 point ROS reviewed and otherwise negative. (Reshma Seymour PA-C) Objective Vital Signs Date Time Temp Pulse Resp B/P (MAP) Pulse Ox O2 Delivery O2 Flow Rate FiO2 04/30/17 07:48 85 177/90 (119) 04/30/17 07:15 36.9 90 18 194/98 (130) 94 Room Air 04/30/17 01:05 168/88 (114) 04/30/17 00:51 36.8 93 20 185/90 (121) 95 Nasal Cannula 2.0 04/30/17 00:00 Room Air 04/29/17 20:00 Room Air 04/29/17 16:00 Room Air 04/29/17 15:23 36.5 87 20 144/71 (95) 94 04/29/17 13:40 91 16 113/68 (83) 94 Room Air 04/29/17 13:10 36.4 79 18 150/73 (98) 98 Nasal Cannula 3.0 04/29/17 12:47 36.5 88 18 155/67 (96) 96 Nasal Cannula 2.0 04/29/17 12:25 36.2 83 16 145/70 98 Nasal Cannula 2 04/29/17 12:15 83 16 127/69 98 Nasal Cannula 2 04/29/17 12:05 84 16 114/62 99 Oxymask 10 04/29/17 11:58 36.1 85 20 106/62 99 Oxymask 10 04/29/17 10:23 95 Room Air (Reshma Seymour PA-C) Physical Exam General Appearance: WD/WN, no apparent distress Eyes: PERRL, EOMI ENT: hearing grossly normal, pharynx normal Neck: no adenopathy, no JVD Respiratory/Chest: chest non-tender, lungs clear, normal breath sounds, no accessory muscle use Cardiovascular: regular rate, rhythm, no murmur Abdomen: normal bowel sounds, non tender, soft Extremities: non-tender, + pedal edema (LLE edema 1+ mild pitting) Neurologic/Psychiatric: alert, normal mood/affect, oriented x 3 Skin: normal color, warm/dry (Reshma Seymour PA-C) Laboratory Results Last 24 Hours Test 04/29/17 15:59 04/29/17 20:32 04/30/17 05:55 04/30/17 07:40 Bedside Glucose 117 mg/dl 124 mg/dl 80 mg/dl White Blood Count 9.11 K/uL Red Blood Count 3.56 M/uL Hemoglobin 11.0 g/dL Hematocrit 34.1 % Mean Corpuscular Volume 95.8 fL Mean Corpuscular Hemoglobin 30.9 pg Mean Corpuscular Hemoglobin Concent 32.3 g/dl Platelet Count 386 K/uL Mean Platelet Volume 9.4 fL Neutrophils (%) (Auto) 64.8 % Lymphocytes (%) (Auto) 22.8 % Monocytes (%) (Auto) 11.0 % Eosinophils (%) (Auto) 0.5 % Basophils (%) (Auto) 0.2 % Neutrophils # (Auto) 5.90 K/uL Lymphocytes # (Auto) 2.08 K/uL Monocytes # (Auto) 1.00 K/uL Eosinophils # (Auto) 0.05 K/uL Basophils # (Auto) 0.02 K/uL RDW Standard Deviation 52.6 fL RDW Coefficient of Variation 14.9 % Immature Granulocyte % (Auto) 0.7 % Immature Granulocyte # (Auto) 0.06 K/uL Prothrombin Time 10.6 SECONDS Prothromb Time International Ratio 1.0 Activated Partial Thromboplast Time 27.6 SECONDS Partial Thromboplastin Ratio 1.1 Sodium Level 141 mmol/L Potassium Level 3.7 mmol/L Chloride Level 110 mmol/L Carbon Dioxide Level 23 mmol/L Anion Gap 8.0 mmol/L Blood Urea Nitrogen 19 mg/dl Creatinine 1.12 mg/dl Est Creatinine Clear Calc Drug Dose 35.5 ml/min Estimated GFR () 53.0 Estimated GFR (Non- 45.7 BUN/Creatinine Ratio 17.2 Random Glucose 89 mg/dl Calcium Level 8.9 mg/dl Magnesium Level 2.1 mg/dl (Reshma Seymour PA-C) Assessment and Plan 81 yo F with PMHx: 4 mm left proximal to mid ureteral stone with UTI-- - Urology consulted - underwent L ureteral stent placement on 04/[address] 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 - Will order PICC insertion today - zofran prn - Famotidine 20 mg IV q12h - PT/OT on board - referral for rehab to [facility] submitted - await auth/call back from facility HTN - Pt BP has been elevated throughout admission in the 150s-170s, has required hydralazine IV for elevated BP about once daily. - Consider initiation of low dose antihypertensive today like metoprolol tartrate 12.5 mg or lisinopril since Cr. is good. Systemic lupus erythematosus-- - Prednisone tapered to 10 mg daily prior to admission - Energy level seems improved per pt, will hold off on stress dose steriods at this time. Hypokalemia - replaced as needed - Follow am prp Hypothyroidism -continue levothyroxine sodium at 75 g daily GERD - on Nexium and ranitidine as outpatient. - Hold oral medications for possible procedure, and place on famotidine IV as noted above. Peripheral neuropathy- - resume Lyrica 50 mg BID Vitamin B12 deficiency - resume DVT ppx: teds, scds, ambulatory CODE STATUS: DNR Disposition: From home, lives alone, CM has auth out to [facility], needs PICC placed today, likely dc in 1 day. (Reshma Seymour, MIKAYLA) I examined patient and discussed my analysis and plan with patient and APC. I agree with above note. My exam did not differ from the exam noted above. I answered all questions from patient and family. (Landen Sanders M.D.)
--- NOTE | 2017-04-30 09:49 | Progress Note ---
Subjective Date of Service: Apr 30, 2017. Subjective Pt evaluation today including: conversation w/ patient, chart review, lab review Voiding: incontinence 81 yo female s/o left ureteral stent placement for stone and UTI. Pt c/o left low back pain, urgency, and incontinence this morning. Denies dysuria or hematuria. Dr. Brown has been consulted for management of ESBL UTI. She has also been started on IV fluconazole for debris noted from kidney and bladder while in the OR. Problem List Medical Problems: (1) Acute kidney injury Status: Acute (2) Altered mental state Status: Acute (3) Compression fx, thoracic spine Status: Acute (4) Failure of outpatient treatment Status: Acute (5) Generalized weakness Status: Acute (6) Leukocytosis Status: Acute (7) Sepsis secondary to UTI Status: Acute (8) UTI (urinary tract infection) Status: Acute (9) UTI (urinary tract infection) Status: Acute (10) Weakness Status: Acute Surgical Problems: (1) History of esophageal dilatation Status: Chronic Review of Systems Constitutional: No fever, No chills Respiratory: + shortness of breath (chronic- worsenig over the past year) Cardiac: No chest pain Abdomen: No pain, No nausea, No vomiting Female : + urinary frequency, + incontinence, No dysuria, No hematuria Heme: No abnormal bleeding/bruising Objective Vital Signs Date Time Temp Pulse Resp B/P (MAP) Pulse Ox O2 Delivery O2 Flow Rate FiO2 04/30/17 07:48 85 177/90 (119) 04/30/17 07:15 36.9 90 18 194/98 (130) 94 Room Air 04/30/17 01:05 168/88 (114) 04/30/17 00:51 36.8 93 20 185/90 (121) 95 Nasal Cannula 2.0 04/30/17 00:00 Room Air 04/29/17 20:00 Room Air 04/29/17 16:00 Room Air 04/29/17 15:23 36.5 87 20 144/71 (95) 94 04/29/17 13:40 91 16 113/68 (83) 94 Room Air 04/29/17 13:10 36.4 79 18 150/73 (98) 98 Nasal Cannula 3.0 04/29/17 12:47 36.5 88 18 155/67 (96) 96 Nasal Cannula 2.0 04/29/17 12:25 36.2 83 16 145/70 98 Nasal Cannula 2 04/29/17 12:15 83 16 127/69 98 Nasal Cannula 2 04/29/17 12:05 84 16 114/62 99 Oxymask 10 04/29/17 11:58 36.1 85 20 106/62 99 Oxymask 10 04/29/17 10:23 95 Room Air Physical Exam General Appearance: no apparent distress Eyes: normal inspection ENT: hearing grossly normal Neck: no JVD Respiratory/Chest: no respiratory distress, no accessory muscle use Cardiovascular: no JVD Extremities: normal inspection Neurologic/Psychiatric: alert, normal mood/affect, oriented x 3 Skin: normal color Laboratory Results Last 24 Hours Test 04/29/17 15:59 04/29/17 20:32 04/30/17 05:55 04/30/17 07:40 Bedside Glucose 117 mg/dl 124 mg/dl 80 mg/dl White Blood Count 9.11 K/uL Red Blood Count 3.56 M/uL Hemoglobin 11.0 g/dL Hematocrit 34.1 % Mean Corpuscular Volume 95.8 fL Mean Corpuscular Hemoglobin 30.9 pg Mean Corpuscular Hemoglobin Concent 32.3 g/dl Platelet Count 386 K/uL Mean Platelet Volume 9.4 fL Neutrophils (%) (Auto) 64.8 % Lymphocytes (%) (Auto) 22.8 % Monocytes (%) (Auto) 11.0 % Eosinophils (%) (Auto) 0.5 % Basophils (%) (Auto) 0.2 % Neutrophils # (Auto) 5.90 K/uL Lymphocytes # (Auto) 2.08 K/uL Monocytes # (Auto) 1.00 K/uL Eosinophils # (Auto) 0.05 K/uL Basophils # (Auto) 0.02 K/uL RDW Standard Deviation 52.6 fL RDW Coefficient of Variation 14.9 % Immature Granulocyte % (Auto) 0.7 % Immature Granulocyte # (Auto) 0.06 K/uL Prothrombin Time 10.6 SECONDS Prothromb Time International Ratio 1.0 Activated Partial Thromboplast Time 27.6 SECONDS Partial Thromboplastin Ratio 1.1 Sodium Level 141 mmol/L Potassium Level 3.7 mmol/L Chloride Level 110 mmol/L Carbon Dioxide Level 23 mmol/L Anion Gap 8.0 mmol/L Blood Urea Nitrogen 19 mg/dl Creatinine 1.12 mg/dl Est Creatinine Clear Calc Drug Dose 35.5 ml/min Estimated GFR () 53.0 Estimated GFR (Non- 45.7 BUN/Creatinine Ratio 17.2 Random Glucose 89 mg/dl Calcium Level 8.9 mg/dl Magnesium Level 2.1 mg/dl Assessment and Plan POD #1 s/p left ureteral stent placement, ESBL UTI AFVSS. Discussed with the pt that low back pain, dysuria, urgency, and frequency are all common after stent placement. UTI can contribute to these symptoms as well. Will provide her with some Pyridium to help symptom management. Will defer to Dr. Brown for management of ESBL UTI. Will need 10-14 days of abx. Consider discharging home on Diflucan for a few days as well. Will defer definitive management of stone until the pt's infection has been adequately treated. Will arrange for outpatient f/u with Dr. Jackson in 1-2 weeks. Will continue to follow along with primary service.
[2017-04-30] MEDS: FLUCONAZOLE 100 MG TAB PO SCH (12:18)
[2017-04-30] MEDS: ERTAPENEM IV 1 GM in SODIUM CHLOR 0.9% AD-VAN 50ML 50 ML IV SCH (12:19)
[2017-04-30] MEDS ORDERED: FLUCONAZOLE / NSS 200 MG in PREMIXED NSS 100 ML IV SCH (14:00)
--- NOTE | 2017-04-30 18:29 | Infectious Disease Progress Nt ---
Progress Note Date of Service Apr 30, 2017. Subjective Pt evaluation today including: conversation w/ patient, physical exam, chart review, lab review, review of studies, conversation w/ transportation consultant, review of inpatient medication list Some mild abdominal pain and dysuria earlier, better now, otherwise no new complaints. Remains afebrile. Tolerating antibiotic without apparent difficulty. All Other Systems: Reviewed and Negative Medications Current Inpatient Medications Medications (Trade) Dose Ordered Sig/Sana Route Start Time Stop Time Status Last Admin Dose Admin Acetaminophen (Tylenol Tab) 650 mg Q4H PRN PO 04/27/17 20:00 05/27/17 19:59 04/29/17 21:00 650 MG Baclofen (Lioresal Tab) 10 mg HS PRN PO 04/27/17 20:00 05/27/17 19:59 Duloxetine HCl (Cymbalta Cap) 60 mg QAM PO 04/28/17 09:00 05/28/17 08:59 04/30/17 07:43 60 MG Levothyroxine Sodium (Synthroid Tab) 75 mcg DAILYBB PO 04/28/17 06:30 05/28/17 06:29 04/30/17 06:09 75 MCG Lorazepam (Ativan Tab) 0.5 mg Q8H PRN PO 04/27/17 20:00 05/27/17 19:59 Prednisone (PredniSONE TAB) 10 mg QDL PO 04/28/17 12:00 05/28/17 11:59 04/30/17 12:18 10 MG Senna/Docusate Sodium (Senokot S Tab) 1 tab BID PO 04/27/17 21:00 05/27/17 20:59 04/30/17 07:42 1 TAB Ondansetron HCl (Zofran Inj) 4 mg Q6H PRN IV 04/27/17 20:00 05/27/17 19:59 04/30/17 15:03 4 MG Acetaminophen 100 ml @ 400 mls/hr Q8H PRN IV 04/27/17 20:00 05/27/17 19:59 04/29/17 07:42 400 MLS/HR Potassium Chloride/Sodium Chloride 1,000 ml @ 60 mls/hr [id number] IV 04/27/17 21:30 05/27/17 21:29 04/30/17 16:43 60 MLS/HR Hydralazine HCl (HydrALAZINE INJ) 10 mg Q6 PRN IV. 04/29/17 00:15 05/29/17 00:14 04/30/17 07:42 10 MG Acetaminophen/ Hydrocodone Bitart ([place] 5/325 Tab) 1 tab Q6 PRN PO 04/29/17 12:15 05/13/17 12:14 Famotidine (Pepcid Tab) 20 mg BID PO 04/29/17 21:00 05/29/17 20:59 04/30/17 07:43 20 MG Phenazopyridine HCl (Pyridium Tab) 200 mg TID PO 04/30/17 09:00 05/30/17 08:59 04/30/17 14:18 200 MG Ertapenem 1 gm/ Sodium Chloride 50 ml @ 120 mls/hr Q24H IV 04/30/17 12:00 05/14/17 11:59 04/30/17 12:19 120 MLS/HR Fluconazole (Diflucan Tab) 100 mg Q24H PO 04/30/17 13:00 05/10/17 12:59 04/30/17 12:18 100 MG Hydroxyzine HCl (Vistaril Tab) 25 mg HS PO 04/30/17 21:00 05/01/17 20:59 Zolpidem Tartrate (Ambien Tab) 5 mg HS PRN PO 04/30/17 21:00 05/30/17 20:59 Objective Vital Signs Date Time Temp Pulse Resp B/P (MAP) Pulse Ox O2 Delivery O2 Flow Rate FiO2 04/30/17 15:10 Room Air 04/30/17 15:06 36.7 84 18 167/79 (108) 93 Room Air 04/30/17 08:00 Room Air 04/30/17 07:48 85 177/90 (119) 04/30/17 07:15 36.9 90 18 194/98 (130) 94 Room Air 04/30/17 01:05 168/88 (114) 04/30/17 00:51 36.8 93 20 185/90 (121) 95 Nasal Cannula 2.0 04/30/17 00:00 Room Air 04/29/17 20:00 Room Air Physical Exam General Appearance: WD/WN, no apparent distress Eyes: normal inspection, EOMI, sclerae normal ENT: normal ENT inspection, pharynx normal Neck: supple, no adenopathy, thyroid normal, trachea midline Respiratory/Chest: chest non-tender, lungs clear, normal breath sounds, no respiratory distress Cardiovascular: regular rate, rhythm, no gallop, no murmur Abdomen: normal bowel sounds, non tender, soft, no organomegaly Extremities: non-tender, no calf tenderness Neurologic/Psychiatric: alert, oriented x 3 Skin: normal color, warm/dry, no rash Lymphatic: no adenopathy Laboratory Results Last 24 Hours Test 04/29/17 20:32 04/30/17 05:55 04/30/17 07:40 04/30/17 11:27 Bedside Glucose 124 mg/dl 80 mg/dl 87 mg/dl White Blood Count 9.11 K/uL Red Blood Count 3.56 M/uL Hemoglobin 11.0 g/dL Hematocrit 34.1 % Mean Corpuscular Volume 95.8 fL Mean Corpuscular Hemoglobin 30.9 pg Mean Corpuscular Hemoglobin Concent 32.3 g/dl Platelet Count 386 K/uL Mean Platelet Volume 9.4 fL Neutrophils (%) (Auto) 64.8 % Lymphocytes (%) (Auto) 22.8 % Monocytes (%) (Auto) 11.0 % Eosinophils (%) (Auto) 0.5 % Basophils (%) (Auto) 0.2 % Neutrophils # (Auto) 5.90 K/uL Lymphocytes # (Auto) 2.08 K/uL Monocytes # (Auto) 1.00 K/uL Eosinophils # (Auto) 0.05 K/uL Basophils # (Auto) 0.02 K/uL RDW Standard Deviation 52.6 fL RDW Coefficient of Variation 14.9 % Immature Granulocyte % (Auto) 0.7 % Immature Granulocyte # (Auto) 0.06 K/uL Prothrombin Time 10.6 SECONDS Prothromb Time International Ratio 1.0 Activated Partial Thromboplast Time 27.6 SECONDS Partial Thromboplastin Ratio 1.1 Sodium Level 141 mmol/L Potassium Level 3.7 mmol/L Chloride Level 110 mmol/L Carbon Dioxide Level 23 mmol/L Anion Gap 8.0 mmol/L Blood Urea Nitrogen 19 mg/dl Creatinine 1.12 mg/dl Est Creatinine Clear Calc Drug Dose 35.5 ml/min Estimated GFR () 53.0 Estimated GFR (Non- 45.7 BUN/Creatinine Ratio 17.2 Random Glucose 89 mg/dl Calcium Level 8.9 mg/dl Magnesium Level 2.1 mg/dl Test 04/30/17 16:42 Bedside Glucose 105 mg/dl Assessment and Plan 1-year-old female with 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 Patient to be transitioned to IV ertapenem to allow easier outpatient treatment. Would recommend at least 2 weeks of therapy, would like to see in follow-up within 2 week period of time to assess need for further antibiotic therapy.
[2017-04-30] MEDS ORDERED: ZOLPIDEM TARTRATE 5 MG TAB PO PRN (21:00)
[2017-04-30] MEDS ORDERED: hydrOXYzine HCL 25 MG TAB PO SCH (21:00)
[2017-04-30] MEDS ORDERED: ZOLPIDEM TARTRATE 5 MG TAB PO SCH (21:00)
[2017-05-01] VITALS (7 sets, daily range): BP systolic 139–172; BP diastolic 81–94; PULSE 85–99; TEMP 36.5–36.9; O2SAT 91–93
[2017-05-01] MEDS: LEVOTHYROXINE 75 MCG TAB PO SCH (05:59)
[2017-05-01] MEDS: DOCUSATE SODIUM/SENNA 50/8.6MG TAB PO SCH ×2 (08:31→20:27)
[2017-05-01] MEDS: DULOXETINE HCL 60 MG CAP PO SCH (08:31)
[2017-05-01] MEDS: FAMOTIDINE 20 MG TAB PO SCH ×2 (08:32→20:24)
[2017-05-01] MEDS: PHENAZOPYRIDINE HCL 200 MG TAB PO SCH ×3 (08:32→20:24)
--- NOTE | 2017-05-01 08:36 | Progress Note ---
Subjective Date of Service: May 01, 2017. Subjective Pt evaluation today including: conversation w/ patient, chart review, lab review Voiding: incontinence 81 yo female s/p left ureteral stent placement. Pt continues to c/o incontinence this morning. She has a hx of incontinence and failure of anticholinergics and pessary placement. She reports the Pyridium helped with her pain. She c/o some nausea this morning. Denies vomiting. Problem List Medical Problems: (1) Acute kidney injury Status: Acute (2) Altered mental state Status: Acute (3) Compression fx, thoracic spine Status: Acute (4) Failure of outpatient treatment Status: Acute (5) Generalized weakness Status: Acute (6) Leukocytosis Status: Acute (7) Sepsis secondary to UTI Status: Acute (8) UTI (urinary tract infection) Status: Acute (9) UTI (urinary tract infection) Status: Acute (10) Weakness Status: Acute Surgical Problems: (1) History of esophageal dilatation Status: Chronic Review of Systems Constitutional: No fever, No chills Respiratory: + shortness of breath (chronic with activity) Cardiac: No chest pain Abdomen: + nausea, No pain, No vomiting Female : + incontinence, No dysuria, No hematuria Heme: No abnormal bleeding/bruising Objective Vital Signs Date Time Temp Pulse Resp B/P (MAP) Pulse Ox O2 Delivery O2 Flow Rate FiO2 05/01/17 07:18 36.9 88 18 159/85 (109) 93 Room Air 05/01/17 00:00 Room Air 04/30/17 22:59 36.9 82 18 158/87 (110) 94 Room Air 04/30/17 20:26 93 Room Air 04/30/17 15:10 Room Air 04/30/17 15:06 36.7 84 18 167/79 (108) 93 Room Air Physical Exam General Appearance: no apparent distress Eyes: normal inspection ENT: hearing grossly normal Neck: no JVD Respiratory/Chest: no respiratory distress, no accessory muscle use Cardiovascular: no JVD Extremities: normal inspection Neurologic/Psychiatric: alert, normal mood/affect, oriented x 3 Skin: normal color Laboratory Results Last 24 Hours Test 04/30/17 11:27 04/30/17 16:42 04/30/17 20:17 05/01/17 07:33 Bedside Glucose 87 mg/dl 105 mg/dl 102 mg/dl 74 mg/dl Test 05/01/17 07:49 Bedside Glucose 85 mg/dl Assessment and Plan POD #2 s/p left ureteral stent placement, ESBL UTI AFVSS. Discussed with the pt that low back pain, dysuria, urgency, and frequency are all common after stent placement. UTI can contribute to these symptoms as well. Pyridium helping with pain. Will continue. Will try oxybutynin for incontinence. Uncertain if her incontinence is at her baseline or worse after stent placement and from UTI, but she unfortunately remains rather bothered. Will defer to Dr. Brown for management of ESBL UTI. Will need 14 days of abx. Consider discharging home on Diflucan for 5 days as well. Will defer definitive management of stone until the pt's infection has been adequately treated. Will arrange for outpatient f/u with Dr. Jackson in 1-2 weeks. Will continue to follow along with primary service.
[2017-05-01] MEDS: NSS + 20MEQ KCL 1000ML 1,000 ML IV SCH (10:18)
[2017-05-01] MEDS: OXYBUTYNIN CHLORIDE 5 MG TAB PO SCH ×3 (10:19→20:28)
[2017-05-01] MEDS: ERTAPENEM IV 1 GM in SODIUM CHLOR 0.9% AD-VAN 50ML 50 ML IV SCH (11:47)
--- NOTE | 2017-05-01 11:47 | Hospitalist Progress Note ---
Hospitalist Progress Note Date of Service May 01, 2017. (Reshma Seymour PA-C) Subjective Pt evaluation today including: conversation w/ patient, physical exam, chart review, lab review, review of studies Pain: None PO Intake: Good Voiding: no voiding problems The patient was seen and examined this morning. Pt reports doing well today other than PICC line insertion was unsuccessful x 2 attempts. She is open to other type of line insertion, I briefly discussed Jacc catheter insertion as Mid -line is not an option due to her her vascular status. Constitutional: No fever, No chills, No sweats Eyes: No discharge ENT: No nasal symptoms, No trouble swallowing Respiratory: No cough, No shortness of breath Cardiovascular: No chest pain, No edema, No palpitations Abdomen: + pain (mild cramping, generalized), No nausea, No vomiting, No diarrhea, No constipation Female : No dysuria, No hematuria Neurologic: No weakness, No numbness/tingling, No balance problems Endo: No fatigue Skin: No rash, No itch (Reshma Seymour PA-C) Objective Vital Signs Date Time Temp Pulse Resp B/P (MAP) Pulse Ox O2 Delivery O2 Flow Rate FiO2 05/01/17 08:00 Room Air 05/01/17 07:18 36.9 88 18 159/85 (109) 93 Room Air 05/01/17 00:00 Room Air 04/30/17 22:59 36.9 82 18 158/87 (110) 94 Room Air 04/30/17 20:26 93 Room Air 04/30/17 15:10 Room Air 04/30/17 15:06 36.7 84 18 167/79 (108) 93 Room Air (Reshma Seymour PA-C) Physical Exam General Appearance: WD/WN, no apparent distress Eyes: PERRL, EOMI ENT: hearing grossly normal, pharynx normal Neck: supple, no JVD Respiratory/Chest: lungs clear, no respiratory distress, no accessory muscle use Cardiovascular: regular rate, rhythm, no murmur Abdomen: normal bowel sounds, non tender, soft Extremities: non-tender, no pedal edema Neurologic/Psychiatric: alert, normal mood/affect, oriented x 3 Skin: normal color, warm/dry (Reshma Seymour PA-C) Laboratory Results Last 24 Hours Test 04/30/17 16:42 04/30/17 20:17 05/01/17 07:33 05/01/17 07:49 Bedside Glucose 105 mg/dl 102 mg/dl 74 mg/dl 85 mg/dl (Reshma Seymour PA-C) Assessment and Plan 81 yo F with PMHx: 4 mm left proximal to mid ureteral stone with UTI-- - Urology consulted - underwent L ureteral stent placement on 04/[address] 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 Will consult hazardous waste management specialist for Jacc catheter insertion discussion/procedure. - zofran prn - Famotidine 20 mg IV q12h - PT/OT on board - referral for rehab to [facility] submitted - await auth/call back from facility HTN - Pt BP has been elevated throughout admission in the 150s-170s, has required hydralazine IV for elevated BP about once daily. - Will start her on lisinopril 2.5 mg daily today and see how she does while in the hospital Systemic lupus erythematosus-- - Prednisone tapered to 10 mg daily prior to admission - Energy level seems improved per pt, will hold off on stress dose steriods at this time. Hypokalemia - replaced as needed - Follow am prp Hypothyroidism -continue levothyroxine sodium at 75 g daily GERD - on Nexium and ranitidine as outpatient. - Hold oral medications for possible procedure, and place on famotidine IV as noted above. Peripheral neuropathy- - resume Lyrica 50 mg BID Vitamin B12 deficiency - resume DVT ppx: teds, scds, ambulatory CODE STATUS: DNR Disposition: From home, lives alone, CM has auth out to [facility], obtaining IV access today, await placement possible today if CM gets auth. Discussion was held with [place] (daughter) at bedside while her 2 sisters, Rayna and Melanie were on [address] phone call. All their questions and concerns were addressed. (Reshma Seymour, MIKAYLA) I examined patient and discussed discharge plan. I agree with above note written by APC. My exam did not differ from APC. Update 17:15 Was called by nurse who was not known to patient. She was concerned that previous CT scan had "possible stroke" in result on admission. I explained that this was the reason for the CT scan to be ordered, and not a result of the CT scan. CT scan was negative for acute changes then. She was still concerned over her left arm being weaker. I went up to see patient and she appeared intermittently confused. She would follow commands, and was able to lift her left arm above gravity. She was also appear to lift his left leg above gravity as well as her right. Will obtain a CT scan of her head now, to compare to previous CT scan. This may be sundowning as well. Depending on symptomatology and result. will decide if patient will be discharged or monitored. Update 18:20 CT scan is negative. However, no improvement of symptomatology. Will cancel discharge at this time. (Landen Sanders M.D.)
[2017-05-01] MEDS: FLUCONAZOLE 100 MG TAB PO SCH (13:06)
[2017-05-01] MEDS: LISINOPRIL 2.5 MG TAB PO SCH (13:06)
--- NOTE | 2017-05-01 13:46 | Infectious Disease Progress Nt ---
Progress Note Date of Service May 01, 2017. Subjective Pt evaluation today including: conversation w/ patient, physical exam, chart review, lab review, review of studies, conversation w/ industry consultant, review of inpatient medication list No new complaints. PICC insertion unsuccessful. No fever. Tolerating ertapenem. All Other Systems: Reviewed and Negative Medications Current Inpatient Medications Medications (Trade) Dose Ordered Sig/Sana Route Start Time Stop Time Status Last Admin Dose Admin Acetaminophen (Tylenol Tab) 650 mg Q4H PRN PO 04/27/17 20:00 05/27/17 19:59 04/29/17 21:00 650 MG Baclofen (Lioresal Tab) 10 mg HS PRN PO 04/27/17 20:00 05/27/17 19:59 Duloxetine HCl (Cymbalta Cap) 60 mg QAM PO 04/28/17 09:00 05/28/17 08:59 05/01/17 08:31 60 MG Levothyroxine Sodium (Synthroid Tab) 75 mcg DAILYBB PO 04/28/17 06:30 05/28/17 06:29 05/01/17 05:59 75 MCG Lorazepam (Ativan Tab) 0.5 mg Q8H PRN PO 04/27/17 20:00 05/27/17 19:59 Prednisone (PredniSONE TAB) 10 mg QDL PO 04/28/17 12:00 05/28/17 11:59 05/01/17 11:47 10 MG Senna/Docusate Sodium (Senokot S Tab) 1 tab BID PO 04/27/17 21:00 05/27/17 20:59 05/01/17 08:31 1 TAB Ondansetron HCl (Zofran Inj) 4 mg Q6H PRN IV 04/27/17 20:00 05/27/17 19:59 04/30/17 15:03 4 MG Acetaminophen 100 ml @ 400 mls/hr Q8H PRN IV 04/27/17 20:00 05/27/17 19:59 04/29/17 07:42 400 MLS/HR Potassium Chloride/Sodium Chloride 1,000 ml @ 60 mls/hr [id number] IV 04/27/17 21:30 05/27/17 21:29 05/01/17 10:18 60 MLS/HR Hydralazine HCl (HydrALAZINE INJ) 10 mg Q6 PRN IV. 04/29/17 00:15 05/29/17 00:14 04/30/17 07:42 10 MG Acetaminophen/ Hydrocodone Bitart ([place] 5/325 Tab) 1 tab Q6 PRN PO 04/29/17 12:15 05/13/17 12:14 Famotidine (Pepcid Tab) 20 mg BID PO 04/29/17 21:00 05/29/17 20:59 05/01/17 08:32 20 MG Phenazopyridine HCl (Pyridium Tab) 200 mg TID PO 04/30/17 09:00 05/30/17 08:59 05/01/17 08:32 200 MG Ertapenem 1 gm/ Sodium Chloride 50 ml @ 120 mls/hr Q24H IV 04/30/17 12:00 05/14/17 11:59 05/01/17 11:47 120 MLS/HR Fluconazole (Diflucan Tab) 100 mg Q24H PO 04/30/17 13:00 05/10/17 12:59 05/01/17 13:06 100 MG Hydroxyzine HCl (Vistaril Tab) 25 mg HS PO 04/30/17 21:00 05/01/17 20:59 04/30/17 20:42 25 MG Zolpidem Tartrate (Ambien Tab) 5 mg HS PRN PO 04/30/17 21:00 05/30/17 20:59 Oxybutynin Chloride (Ditropan Tab) 5 mg TID PO 05/01/17 09:00 05/31/17 08:59 05/01/17 10:19 5 MG Lisinopril (Zestril Tab) 2.5 mg QAM PO 05/01/17 11:00 05/31/17 10:59 05/01/17 13:06 2.5 MG Objective Vital Signs Date Time Temp Pulse Resp B/P (MAP) Pulse Ox O2 Delivery O2 Flow Rate FiO2 05/01/17 08:00 Room Air 05/01/17 07:18 36.9 88 18 159/85 (109) 93 Room Air 05/01/17 00:00 Room Air 04/30/17 22:59 36.9 82 18 158/87 (110) 94 Room Air 04/30/17 20:26 93 Room Air 04/30/17 15:10 Room Air 04/30/17 15:06 36.7 84 18 167/79 (108) 93 Room Air Physical Exam General Appearance: WD/WN, no apparent distress Eyes: normal inspection, sclerae normal ENT: normal ENT inspection, pharynx normal Neck: supple, no adenopathy, thyroid normal, trachea midline Respiratory/Chest: chest non-tender, lungs clear, normal breath sounds, no respiratory distress Cardiovascular: regular rate, rhythm, no gallop, no murmur Abdomen: normal bowel sounds, non tender, soft, no organomegaly Extremities: non-tender, no calf tenderness Neurologic/Psychiatric: alert, oriented x 3 Skin: normal color, warm/dry, no rash Lymphatic: no adenopathy Laboratory Results Last 24 Hours Test 04/30/17 16:42 04/30/17 20:17 05/01/17 07:33 05/01/17 07:49 Bedside Glucose 105 mg/dl 102 mg/dl 74 mg/dl 85 mg/dl Test 05/01/17 11:30 Bedside Glucose 78 mg/dl Assessment and Plan 1-year-old female with 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 Patient transitioned to IV ertapenem to allow easier outpatient treatment. Would recommend at least 2 weeks of therapy, would like to see in follow-up within 2 week period of time to assess need for further antibiotic therapy.
[2017-05-01] MEDS ORDERED: LSN25 PO (14:35)
[2017-05-01] MEDS ORDERED: DFL100 PO (14:35)
--- NOTE | 2017-05-01 14:39 | Discharge Instructions ---
Discharge Instructions Date of Service May 01, 2017. Admission Reason for Admission: Sirs, Uti Discharge Discharge Diagnosis / Problem: Urinary Tract infection with systemic inflammatory response syndrome Discharge Goals Goal(s): Decrease discomfort, Improve function, Increase independence, Improve disease control Activity Recommendations Activity Level: Assistance Required Therapies: Physical Therapy, Occupational Therapy Lifting Limitations: no more than 25 pounds, gradually increase as tolerated Exercise/Sports Limitations: as tolerated, gradually increase as tolerated Shower/Bathe: no limitations . Additional Information Patient informed of condition: Yes Advance Directives: Yes DNR: Yes Level of Care: Acute Rehab Communicable Disease: No Prognosis: Stable Blakely Catheter: No Instructions / Follow-Up Instructions / Follow-Up You were admitted to [facility] with Urinary Tract infection with systemic inflammatory response syndrome During your stay here you were treated with intravenous antibiotics, underwent a left ureteral stent placement, and other supportive care From Urinary Tract Infection: - UTIs can be prevented by good hygeine and good hydration: Drink plenty of fluids daily Change feminine napkins frequently and whenever soiled with urine - Continue taking ertapenem 1 g daily x next 12 days to complete a 14 day course per Infectious Disease. A Jacc catheter was placed on 05/01/17: your daily antibiotic infusion will be administered through this. The catheter will be removed after the end of your antibiotics. Ureteral Stent placement: - The stent will come out in about 6 weeks after initial placement on 04/29/17 - Follow up with urology for removal. - It is normal to feel some abdominal cramping after this is placed. If your pain worsens, you see blood in your urine, or have other abdominal complaints- please tell a medical professional. For Blood Pressure: - An antihypertensive called Lisinopril 2.5 mg was started during your hospital stay for bps in the 160s to 170s. - Check blood pressure daily -Follow up with the physician at [facility] to determine if you should continue this medications, it will depend on your blood pressure readings. Medications: Continue ertapenem as above. Continue taking fluconazole x 12 more days to complete a 14 day course for fungal infection, as sediment was seen in the bladder during stent placement Continue taking your other medications as prescribed. Appointments: Follow up with your Primary Care Provider at [facility] within 24-48 hours upon arrival Follow up with urology within 1-2 weeks. Current Hospital Diet Patient's current hospital diet: Regular Diet Discharge Diet Recommended Diet: Regular Diet Procedures Procedures Performed: Cysto, Left Retrograde pyelogram, Left stent Pending Studies Studies pending at discharge: no Medical Emergencies . Who to Call and When: Medical Emergencies: If at any time you feel your situation is an emergency, please call 911 immediately. . Non-Emergent Contact Non-Emergency issues call your: Primary Care Provider Call Non-Emergent contact if: you have a fever, your pain is not controlled, your pain is worsening, you have any medication questions other concerns with your health. Call 911 or go directly to the Emergency Department if you experience any of the following: Chest pain, chest tightness, shortness of breath, abdominal pain , lightheadedness, dizziness, gastrointestinal bleeding, or have any other concerns regarding your health. . 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 "Provider Documentation" section prepared by Mary Seymour. . Core Measure Problem Core Measures: None
[2017-05-01] MEDS ORDERED: NURSING VERBAL MED ORDER ONE (15:00)
[2017-05-01] MEDS ORDERED: LIDOCAINE HCL 1% 20 ML VIAL ONE (15:02)
--- NOTE | 2017-05-01 15:23 | Discharge Summary ---
Discharge Summary Date of Service May 01, 2017. (Reshma Seymour PA-C) Discharge Summary Admission Date: Apr 27, 2017 at 19:54 Discharge Disposition: [facility] facility Principal Diagnosis: UTI with SIRs Problems/Secondary Diagnoses: (1) History of esophageal dilatation Status: Chronic 4 mm left proximal to mid ureteral stone with UTI Urinary tract infection SIRS HTN Systemic lupus erythematosus Hypokalemia Hypothyroidism GERD Peripheral neuropathy- Vitamin B12 deficiency Immunizations: Have You Had Influenza Vaccine: Yes Influenza Vaccine Date: Apr 04, 2015 History of Tetanus Vaccine?: Yes Tetanus Immunization Date: Dec 29, 2007 History of Pneumococcal: Yes Pneumococcal Date: Jun 19, 2007 Procedures: CHEST ONE VIEW PORTABLE 04/27/17 IMPRESSION: 1. Low lung volumes with hypoventilatory changes the lung bases. CT HEAD WITHOUT CONTRAST (CT) 04/27/17 IMPRESSION: 1. No acute intracranial findings 2. Postsurgical changes of a right occipital craniotomy 3. Stable thickening of the right anterior tentorium with a stable 7 mm extra-axial calcification abutting the tentorium ABDOMEN AND PELVIS CT WITHOUT CONTRAST 04/28/17 IMPRESSION: 1. A 4 mm stone within the proximal left ureter without significant hydronephrosis. 2. Bilateral nephrolithiasis. 3. Right greater than left perinephric fat stranding. Recommend correlation with urinalysis to exclude an infectious process. 4. Of note the distal ureters and bladder are obscured by metallic artifact from the total hip arthroplasties. 5. Moderate hiatus hernia which is progressed. KUB 04/28/17 IMPRESSION: 1. Left sided nephrolithiasis. The right renal stone seen on the prior study is not clearly identified. 3. The left ureteral stone is also obscured by overlying bowel gas. RETROGRADE INCLUDES KUB 04/29/17 FINDINGS: Image intensifier was utilized for a left ureteral stent placement IMPRESSION: Left ureteral stent placement CT SCAN OF THE ABDOMEN AND PELVIS WITHOUT CONTRAST 04/29/17 IMPRESSION: 1. Bilateral nephrolithiasis 2. No significant change in the 3.5 mm proximal left ureteral calculus. No evidence of significant hydronephrosis 3. Hiatal hernia 4. Diverticulosis. No evidence of acute peridiverticular inflammatory change 5. No evidence of bowel obstruction. No evidence of free air Consultations: Infectious disease Urology Flute Polisher - for line placement (Reshma Seymour PA-C) Medication Reconciliation New Medications: Fluconazole (Fluconazole) 100 Mg Tab 100 MG PO Q24H for 12 Days, #12 TAB Lisinopril (Lisinopril) 2.5 Mg Tab 2.5 MG PO QAM for 30 Days, #30 TAB Continued Medications: Baclofen (Lioresal) 10 Mg Tab 10 MG PO HS PRN for Muscle Spasms, TAB PT TAKES 10 MG AT HS EVERY DAY, MAY TAKE UP TO 3 DOSES PER 24 HOURS. Biotin (Biotin) 1 Mg Cap 1 CAP PO LUNCH Calcium Carbonate-Vitamin D (Calcium + D) 1 Tab Tab 2 TABS PO LUNCH Cyanocobalamin (Vitamin B-12) 1,000 Mcg Sub 1000 MCG PO DAILY Duloxetine Hcl (Cymbalta) 60 Mg Cap 60 MG PO QAM Esomeprazole Magnesium (Nexium) 40 Mg Capcr 40 MG PO QAM Lactobacillus (Probiotic) 1 Cap Cap 1 CAP PO HS Levothyroxine Sodium (Synthroid) 75 Mcg Tab 75 MCG PO QAM Lorazepam (Ativan) 0.5 Mg Tab 0.5 MG PO Q8 PRN for Anxiety, #6 TAB Melatonin (Melatonin) 1 Mg Tab 1 MG PO HS PRN for Sleep Misc Natural Products (Osteo Bi-Flex Advanced Do) 1 Tab Tab 1 TAB PO QAM Multivitamin (Multivitamin) Tab 1 TAB PO LUNCH Polyethylene Glycol 3350 (Miralax) 1 Pow Pow 17 GM PO DAILY, #527 GM Prednisone (Prednisone) 5 Mg Tab 10 MG PO LUNCH Pregabalin (Lyrica) 50 Mg Cap 50 MG PO BID Ranitidine (Zantac) 300 Mg Tab 300 MG PO HS Sennosides-Docusate Sodium (Stool Softener) 1 Tab Tab 1 TAB PO BID Discharge Exam Subjective Pt evaluation today including: conversation w/ patient, physical exam, chart review, lab review, review of studies Pain: None PO Intake: Good Voiding: no voiding problems The patient was seen and examined this morning. Pt reports doing well today other than PICC line insertion was unsuccessful x 2 attempts. She is open to other type of line insertion, I briefly discussed Jacc catheter insertion as Mid -line is not an option due to her her vascular status. Constitutional: No fever, No chills, No sweats Eyes: No discharge ENT: No nasal symptoms, No trouble swallowing Respiratory: No cough, No shortness of breath Cardiovascular: No chest pain, No edema, No palpitations Abdomen: + pain (mild cramping, generalized), No nausea, No vomiting, No diarrhea, No constipation Female : No dysuria, No hematuria Neurologic: No weakness, No numbness/tingling, No balance problems Endo: No fatigue Skin: No rash, No itch Objective Vital Signs Date Time Temp Pulse Resp B/P (MAP) Pulse Ox O2 Delivery O2 Flow Rate FiO2 05/01/17 08:00 Room Air 05/01/17 07:18 36.9 88 18 159/85 (109) 93 Room Air 05/01/17 00:00 Room Air 04/30/17 22:59 36.9 82 18 158/87 (110) 94 Room Air 04/30/17 20:26 93 Room Air 04/30/17 15:10 Room Air 04/30/17 15:06 36.7 84 18 167/79 (108) 93 Room Air Physical Exam General Appearance: WD/WN, no apparent distress Eyes: PERRL, EOMI ENT: hearing grossly normal, pharynx normal Neck: supple, no JVD Respiratory/Chest: lungs clear, no respiratory distress, no accessory muscle use Cardiovascular: regular rate, rhythm, no murmur Abdomen: normal bowel sounds, non tender, soft Extremities: non-tender, no pedal edema Neurologic/Psychiatric: alert, normal mood/affect, oriented x 3 Skin: normal color, warm/dry (Reshma Seymour, MIKAYLA) Hospital Course History of Present Illness Source: patient, family, hospital records The patient is an 81-year-old female most recently admitted to [facility] from March 27 for UTI, who presents with complaints of intermittent dizziness that began 7 days ago, one day after being discharged from rehabilitation. Her daughters feel that she is presenting with symptoms similar to her previous UTIs , with complaints of urinary burning and incontinence. Physical Exam Vital Signs Date Time Temp Pulse Resp B/P (MAP) Pulse Ox O2 Delivery O2 Flow Rate FiO2 04/27/17 18:15 82 18 152/87 95 Room Air 04/27/17 16:05 37.0 89 18 127/72 95 Room Air The patient is awake, well-developed and adequately nourished, alert and oriented 3, normocephalic and atraumatic, lying in bed and in no acute distress. HEENT--PERRL, EOMI, mucous membranes and oropharynx dry. Neck--supple, no JVD or bruits, thyroid normal, trachea midline, no adenopathy. Heart--normal S1 and S2, no extra beats, no murmurs, rubs or gallops. Lungs--clear bilaterally with good air movement, no respiratory distress, no accessory muscle use. Abdomen--normal bowel sounds and soft, nontender and nondistended, no hernias or masses, no organomegaly. Extremities--no cyanosis, clubbing or edema. There are good distal pulses b/l. Dermatologic--normal skin turgor, normal color, warm and dry, no abnormal lymph nodes, no rash. Neurologic--cranial nerves II through XII grossly intact. Rheumatologic--normal range of motion. Psychiatric--normal affect. Hospital Course: 81 yo F with PMHx: 4 mm left proximal to mid ureteral stone with UTI-- - Urology consulted - underwent L ureteral stent placement on 04/[address] Mauricio - appreciate recs - UCx with e.coli and multi drug resistance - ID consulted - continue on Ertapenum 1 g daily x 2 weeks along with fluconazole 100 mg daily x 2 weeks to cover possible fungal infection with sediment seen in bladder during cystoscopy and stent placement - today is day # 2 - Finish May 14. - PICC insertion was unsuccessful, mid-line not an option due to vascular access per IV team. - Jacc catheter insertion discussion/procedure completed on 05/01 by poultry and fish butcher team - zofran prn - Famotidine 20 mg IV q12h - PT/OT on board - referral for rehab to [facility] submitted and approved today. HTN - Pt BP has been elevated throughout admission in the 150s-170s, has required hydralazine IV for elevated BP about once daily. - Will start her on lisinopril 2.5 mg daily today- seemed to control BP well - should be followed by outpatient provider closely Systemic lupus erythematosus-- - Prednisone tapered to 10 mg daily prior to admission - Energy level seems improved per pt, pt was not placed on stress dose steriods during admission. Hypokalemia - replaced as needed - Follow am prp Hypothyroidism -continue levothyroxine sodium at 75 g daily GERD - on Nexium and ranitidine as outpatient. - Hold oral medications for possible procedure, and place on famotidine IV as noted above. Peripheral neuropathy- - resume Lyrica 50 mg BID Vitamin B12 deficiency - resume DVT ppx: teds, scds, ambulatory CODE STATUS: DNR Disposition: From home, lives alone, [facility] has auth out to [facility], discharge to there today Discussion was held with [place] (daughter) at bedside while her 2 sisters, Rayna and Melanie were on [address] phone call. All their questions and concerns were addressed prior to discharge. Total Time Spent: Greater than 30 minutes This includes examination of the patient, discharge planning, medication reconciliation, and communication with other providers. (Reshma Seymour, MIKAYLA) Discharge Instructions Please refer to the electronic Patient Visit Report (Discharge Instructions) for additional information. (Reshma Seymour PA-C) Follow-Up Follow up with your Primary Care Provider at SNF within 24-48 hours of arrival there Follow up with urology within 1-2 weeks. Stent will need to be removed within 6 weeks from initial placement per urology. (Reshma Seymour PA-C) Note for billing. Please use this document as a progress note as patient was not discharged. (Landen Sanders M.D.) Additional Copies To Topher Artis M.D.
--- NOTE | 2017-05-01 15:25 | Critical Care Consultation ---
Critical Care Consultation Date of Consultation: May 01, 2017. Attending Physician: Landen Sanders M.D. Reason for Consultation: long-term (2 week) IV access History of Present Illness patient is an 81 y/o female with complicated UTI nephrolithiasis requiring 2 weeks of IV antibiotic therapy. Patient did not have adequate vessel size for midline or PICC. Past Medical/Surgical History CKD 3 HTN GERN Recurrent UTI Family History Depression Diabetes mellitus Malignancy (prostate cancer) Social History Smoking Status: Never Smoker Smokeless Tobacco Use: No Alcohol Use: none Drug Use: none Marital Status: Housing Status: lives with family Occupation Status: retired Allergies Coded Allergies: Sulfamethoxazole w/Trimethoprim (Verified Allergy, Severe, "lips swell", 04/27/17) Sulfa Antibiotics (Verified Allergy, Unknown, swelling of lips, 04/27/17) Codeine (Verified Adverse Reaction, Mild, "nauseated", 04/27/17) Propoxyphene (Verified Adverse Reaction, Mild, "nauseated", 04/27/17) Home Medications Scheduled Biotin (Biotin), 1 CAP PO LUNCH Calcium Carbonate-Vitamin D (Calcium + D), 2 TABS PO LUNCH Cyanocobalamin (Vitamin B-12), 1,000 MCG PO DAILY Duloxetine Hcl (Cymbalta), 60 MG PO QAM Esomeprazole Magnesium (Nexium), 40 MG PO QAM Fluconazole (Fluconazole), 100 MG PO Q24H Lactobacillus (Probiotic), 1 CAP PO HS Levothyroxine Sodium (Synthroid), 75 MCG PO QAM Lisinopril (Lisinopril), 2.5 MG PO QAM Misc Natural Products (Osteo Bi-Flex Advanced Do), 1 TAB PO QAM Multivitamin (Multivitamin), 1 TAB PO LUNCH Polyethylene Glycol 3350 (Miralax), 17 GM PO DAILY Prednisone (Prednisone), 10 MG PO LUNCH Pregabalin (Lyrica), 50 MG PO BID Ranitidine (Zantac), 300 MG PO HS Sennosides-Docusate Sodium (Stool Softener), 1 TAB PO BID Scheduled PRN Baclofen (Lioresal), 10 MG PO HS PRN for Muscle Spasms Lorazepam (Ativan), 0.5 MG PO Q8 PRN for Anxiety Melatonin (Melatonin), 1 MG PO HS PRN for Sleep Current Inpatient Medications Current Inpatient Medications Medications (Trade) Dose Ordered Sig/Saan Route Start Time Stop Time Status Last Admin Dose Admin Acetaminophen (Tylenol Tab) 650 mg Q4H PRN PO 04/27/17 20:00 05/27/17 19:59 04/29/17 21:00 650 MG Baclofen (Lioresal Tab) 10 mg HS PRN PO 04/27/17 20:00 05/27/17 19:59 Duloxetine HCl (Cymbalta Cap) 60 mg QAM PO 04/28/17 09:00 05/28/17 08:59 05/01/17 08:31 60 MG Levothyroxine Sodium (Synthroid Tab) 75 mcg DAILYBB PO 04/28/17 06:30 05/28/17 06:29 05/01/17 05:59 75 MCG Lorazepam (Ativan Tab) 0.5 mg Q8H PRN PO 04/27/17 20:00 05/27/17 19:59 Prednisone (PredniSONE TAB) 10 mg QDL PO 04/28/17 12:00 05/28/17 11:59 05/01/17 11:47 10 MG Senna/Docusate Sodium (Senokot S Tab) 1 tab BID PO 04/27/17 21:00 05/27/17 20:59 05/01/17 08:31 1 TAB Ondansetron HCl (Zofran Inj) 4 mg Q6H PRN IV 04/27/17 20:00 05/27/17 19:59 04/30/17 15:03 4 MG Acetaminophen 100 ml @ 400 mls/hr Q8H PRN IV 04/27/17 20:00 05/27/17 19:59 04/29/17 07:42 400 MLS/HR Potassium Chloride/Sodium Chloride 1,000 ml @ 60 mls/hr [id number] IV 04/27/17 21:30 05/27/17 21:29 05/01/17 10:18 60 MLS/HR Hydralazine HCl (HydrALAZINE INJ) 10 mg Q6 PRN IV. 04/29/17 00:15 05/29/17 00:14 04/30/17 07:42 10 MG Acetaminophen/ Hydrocodone Bitart ([place] 5/325 Tab) 1 tab Q6 PRN PO 04/29/17 12:15 05/13/17 12:14 Famotidine (Pepcid Tab) 20 mg BID PO 04/29/17 21:00 05/29/17 20:59 05/01/17 08:32 20 MG Phenazopyridine HCl (Pyridium Tab) 200 mg TID PO 04/30/17 09:00 05/30/17 08:59 05/01/17 14:17 200 MG Ertapenem 1 gm/ Sodium Chloride 50 ml @ 120 mls/hr Q24H IV 04/30/17 12:00 05/14/17 11:59 05/01/17 11:47 120 MLS/HR Fluconazole (Diflucan Tab) 100 mg Q24H PO 04/30/17 13:00 05/10/17 12:59 05/01/17 13:06 100 MG Hydroxyzine HCl (Vistaril Tab) 25 mg HS PO 04/30/17 21:00 05/01/17 20:59 04/30/17 20:42 25 MG Zolpidem Tartrate (Ambien Tab) 5 mg HS PRN PO 04/30/17 21:00 05/30/17 20:59 Oxybutynin Chloride (Ditropan Tab) 5 mg TID PO 05/01/17 09:00 05/31/17 08:59 05/01/17 14:17 5 MG Lisinopril (Zestril Tab) 2.5 mg QAM PO 05/01/17 11:00 05/31/17 10:59 05/01/17 13:06 2.5 MG Review of Systems Respiratory: No cough, No sputum Cardiovascular: No chest pain, No orthopnea Abdomen: No pain, No nausea Physical Exam Date Time Temp Pulse Resp B/P (MAP) Pulse Ox O2 Delivery O2 Flow Rate FiO2 05/01/17 08:00 Room Air 05/01/17 07:18 36.9 88 18 159/85 (109) 93 Room Air 05/01/17 00:00 Room Air 04/30/17 22:59 36.9 82 18 158/87 (110) 94 Room Air 04/30/17 20:26 93 Room Air General Appearance: well-appearing, WD/WN Eyes: PERRLA, EOMI Neck: normal range of motion Respiratory: breath sounds normal Upper Extremities: no edema, no deformity Neuro: alert, oriented x 3 Laboratory Results Last 24 Hours Test 04/30/17 16:42 04/30/17 20:17 05/01/17 07:33 05/01/17 07:49 Bedside Glucose 105 mg/dl 102 mg/dl 74 mg/dl 85 mg/dl Test 05/01/17 11:30 Bedside Glucose 78 mg/dl Assessment & Plan (1) Urinary tract infection ABX per primary team (2) Central venous catheter in place, temporary Reviewed CXR, no PTX
--- NOTE | 2017-05-01 15:27 | Procedure Note ---
Procedure Note Procedure Date May 01, 2017. Central Line Procedure time out: side/site verified, patient ID confirmed, sterile procedure used Consent obtained: written Time of procedure: 15:00 Performed by: attending Indications: poor venous access, long-term access Prep: chlorhexadine prep, sterile drape, sterile procedures used Anesthesia: lidocaine 1% without epi (4 mL) Volume anesthetic (ml's): 4 Central line lumen: single Central line location: subclavian (R) Additional details: Selinger technique used, line sutured, good blood return CXR: appropriate position, no pneumothorax Complications: none Patient tolerated procedure: well Post-procedure vital signs: reviewed and stable Comments: post procedure US: no PTX, inital CXR: possible loop of catheter. After saline flush and repeat CXR: catheter in adequate position
--- NOTE | 2017-05-01 15:55 | DIAGNOSTIC IMAGING REPORT ---
CHEST ONE VIEW PORTABLE CLINICAL HISTORY: RIGHT SUBCLAVIAN CATHETER PLACEMENT COMPARISON STUDY: 04/25/2017 FINDINGS: The heart is at the upper limits of normal in size. There are low lung volumes with bronchovascular crowding at the lung bases. There is no pneumothorax. There has been interval placement of a right subclavian central venous catheter. The tip projects over the expected confluence of the right subclavian vein, and right internal jugular vein. IMPRESSION: 1. Interval placement of a right subclavian central venous catheter. The tip projects and expected confluence of the right subclavian vein and right internal jugular vein. 2. No pneumothorax identified 3. Low lung volumes with bronchovascular crowding at the lung bases Electronically signed by: Mayito Dong M.D. 05/01/2017 3:54 PM Dictated Date/Time: 05/01/2017 3:51 PM
--- NOTE | 2017-05-01 18:00 | DIAGNOSTIC IMAGING REPORT ---
CT HEAD WITHOUT CONTRAST (CT) CLINICAL HISTORY: left extremity weakness COMPARISON STUDY: 04/27/2017 TECHNIQUE: Axial CT of the brain is performed from the vertex to the skull base. IV contrast was not administered for this examination. A dose lowering technique was utilized adhering to the principles of ALARA. CT DOSE: 537.48 mGy.cm FINDINGS: There is stable thickening of the right anterior tentorium. There is a stable 7 mm extra-axial calcification abutting the tentorium. While nonspecific, this could represent a small meningioma. There is no CT evidence of acute cortical infarction. There is no evidence of midline shift. There is no acute hemorrhage. No calvarial fractures are visualized. There are moderate white matter hypodensities likely on a small vessel basis. There is no evidence of pathologic ventricular dilatation. There are postsurgical changes of a right occipital craniotomy. There is no acute sinusitis. IMPRESSION: 1. No acute intracranial findings 2. Postsurgical changes of a right occipital craniotomy 3. Stable thickening of the right anterior tentorium with a stable 7 mm extra-axial calcification abutting the tentorium 4. Moderately extensive white matter hypodensities likely on a small vessel basis Electronically signed by: Mayito Dong M.D. 05/01/2017 5:58 PM Dictated Date/Time: 05/01/2017 5:56 PM
[2017-05-01] MEDS ORDERED: ARTIFICIAL TEARS OP OINT 3.5 GM TUBE OPB PRN (19:30)
[2017-05-01 22:44] LABS: BASO % 0.1 %; BASO ABS # 0.01 K/uL (0-0.2); COMPLETE YES; EOS % 0.2 %; HEMATOCRIT 33.6 % (37-47); LYMPH % 17.4 %; LYMPH ABS # 2.31 K/uL (1.2-3.4); MEAN CORPUSCULAR HEMOGLOBIN 31.4 pg (25-34); MEAN CORPUSCULAR HGB CONC 32.7 g/dl (32-36); MEAN PLATELET VOLUME 9.1 fL (7.4-10.4); MONO % 9.4 %; NEUT % 71.9 %; PLATELET COUNT 380 K/uL (130-400); WHITE BLOOD COUNT 13.26 K/uL (4.8-10.8)
[2017-05-01 22:55] LABS: ALLEN TEST POS (POS); ARTERIAL BLD GAS O2 SATURATION 92.3 % (90-95); ARTERIAL BLOOD GAS BASE EXCESS -1.3 mEq/L (-9-1.8); ARTERIAL BLOOD GAS HCO3 22 mmol/L (19-24); ARTERIAL BLOOD GAS PO2 69 mm/Hg (80-95); ARTERIAL BLOOD GAS pH 7.45 (7.35-7.45); O2 ADMINISTRATION ROOM AIR
[2017-05-01 23:20] LABS: ALB/GLOB RATIO 0.8 (0.9-2); ALKALINE PHOSPHATASE 56 U/L (45-117); ALT/SGPT 18 U/L (12-78); AST/SGOT 14 U/L (15-37); BLOOD UREA NITROGEN 18 mg/dl (7-18); BUN/CREATININE RATIO 17.7 (10-20); CALCIUM 8.8 mg/dl (8.5-10.1); CARBON DIOXIDE 21 mmol/L (21-32); CHLORIDE 106 mmol/L (98-107); CREATININE 1.01 mg/dl (0.60-1.20); GLUCOSE 105 mg/dl (70-99); MAGNESIUM 2.1 mg/dl (1.8-2.4); POTASSIUM 4.4 mmol/L (3.5-5.1); SODIUM 136 mmol/L (136-145)
[2017-05-02] VITALS (12 sets, daily range): BP systolic 110–181; BP diastolic 60–104; PULSE 80–109; TEMP 37–39; O2SAT 90–94
[2017-05-02] MEDS ORDERED: GADAVIST IV PRN (01:20)
[2017-05-02] MEDS ORDERED: NURSING VERBAL MED ORDER ONE ×3 (02:45→15:45)
[2017-05-02] MEDS ORDERED: ASPIRIN 300 MG SUPP PR ONE (03:00)
--- NOTE | 2017-05-02 03:55 | Progress Note ---
Progress Note Date of Service May 02, 2017. (Airam Adamson MD) 05/02 Attending hospitalist providing PM coverage Addendum to resident note - was informed regarding changes in pt mentation and L sided weakness. Pt was apparently scheduled for DC after insertion of CVP for long-term antibiotics. A CT earlier in the day based on intermittent symptoms was negative. The resident had evaluated her and appropriately ordered an MRI which unfortunately showed widespread R sided infarcts. We opted to call a stroke alert - she was not a candidate for TPA I discussed this extensively with the family and the pt was transferred to ICU - ASA suository was provided It was reported on MRI that meningitis was a possibility however, this was not consistent with histroy or clinical exam Possibility of a poor prognosis was discussed with family. Case was discussed with machine clerical verifier and AM team (Roger Hogan M.D.) Progress Note Evaluated patient at ~10:00 pm Daughters in the room- reported that she has had altered mental status, left arm weakness, left eyelid droop since about 3-4 pm. Nursing reports noting changes after 3 Pm shift. Patient had JACC line placed in the afternoon for custodial IV abx for ESBL and discharge was planned to [facility] today that was later cancelled due to clinical changes. Day time hospitalist was notified and had ordered a CT that was negative for acute changes Nurse reports patient intermittently oriented. During my evaluation, patient was responding intermittently to yes or no questions. Vitals: Afebrile, 170s/80's, 85, 93 on RA Neuro exam: Follows some commands, somewhat difficult to arouse but does awaken with repeated stimuli Left arm: Left arm weakness, does attempt to lift her fingers but does not squeeze fingers when prompted Right arm: squeezes fingers and moves when prompted CN (unable to assess all): Attempts to open eyes, Pupils reactive, sticks tongue out when prompted, unable to assess drooping of eyelids Lower extremities: moves spontaneously, but weak Heart: RRR, S1S2 present Lungs: CTAB, no wheezing, rales or ronchi. A/P: 81 y/o F w/ h/o of Lupus who was admitted for UTI sepsis 2 days s/p ureteral stent and day 0 of JACC line placement who was noted to become weaker, less responsive, with left arm weakness earlier in the day. Concern for CVA vs. infection vs. metabolic derangements Labs Ordered MRI brain ordered Family updated at bedside. ---- Paged by [facility] - Spoke to radiologist over phone- concerns about acute infarcts as well as possible meningitis. Notified Dr. Hogan and together we evaluated the patient again. She was not felt to have meningeal signs at this time. Afebrile. A stroke alert was called. Case discussed with Dr. Correia at [facility] who recommended getting Echo, carotid u/s, aspirin. Since time symptoms began was earlier in the day; outside tPA window. Also did recommend LP but patient had spinal Fusion so will need to be done by Radiology in the AM. ----- Case discussed with ICU/ dr. Colvin and was felt to be stable for Tele. LP was decided against given presentation. Further imaging ordered. (Airam Adamson MD)
[2017-05-02] MEDS ORDERED: OPTIRAY 320 IV PRN (04:00)
--- NOTE | 2017-05-02 05:26 | Progress Note ---
Progress Note Date of Service May 02, 2017. Progress Note Pt was noted to have continued left upper extremity weakness > than left lower extremity weakness. After neg CT scan at 1742, pt was to be discharged to [facility] for IV Abx for Urosepsis s/p ureteral stent placement. Pts daughter was concerned that her mother was exhibiting left eye droop, flaccid left side, and behaving out of the ordinary. Discharge was cancelled, as family felt uncomfortable transporting pt in this condition. Dr. Adamson was paged who examined the patient and ordered an MRI. MRI [facility] was returned with concerns for Stroke and Meningitis. Pt was transferred to the ICU, however, stable from a cardiopulmonary stand point. Dr. Colvin arrived and determined along with discussion with the hospitalist team, that this was unlikely to be meningitis given her current abx coverage. Pt was ordered vascular studies and then transferred to telemetry for close monitoring.
[2017-05-02] MEDS: LEVOTHYROXINE 75 MCG TAB PO SCH (05:45)
[2017-05-02] MEDS: NSS + 20MEQ KCL 1000ML 1,000 ML IV SCH (05:57)
[2017-05-02] MEDS: ACETAMINOPHEN IV 100 ML IV PRN ×2 (05:57→14:13)
--- NOTE | 2017-05-02 07:17 | DIAGNOSTIC IMAGING REPORT ---
CT ANGIOGRAM OF THE BRAIN CLINICAL HISTORY: Stroke. COMPARISON STUDY: CT and MRI of the brain dated 05/01/2017. TECHNIQUE: Following the IV administration of 93 cc of Optiray 320, CT angiogram of the brain was performed from the skull base to the vertex. Images are reviewed in the axial, sagittal, and coronal planes. 3-D MIPS images are created and assessed. IV contrast was administered without complication. A dose lowering technique was utilized adhering to the principles of ALARA. The patient was scanned twice. CT DOSE: 1078.89 mGy.cm FINDINGS: Brain parenchyma: There are age-related involutional changes noting moderate to advanced confluent subcortical and periventricular microangiopathic disease. There is no hemorrhage, mass effect, or evidence of acute territorial ischemia by CT criteria. There is no evidence of enhancing mass lesion on the angiogram phase images. No extra-axial fluid collection is seen. Goodman-white matter differentiation is preserved. Ventricles, sulci, and cisterns: Prominent secondary to involutional change. CT angiogram of the brain: There is evidence carotid calcification of the cavernous carotid and vertebral arteries. On the first injection there is only opacification of the right sided intracranial vessels, likely due to arterial injection. The internal carotid arteries are widely patent, as are the anterior and middle cerebral arteries. The vertebrobasilar system and posterior cerebral arteries are widely patent. The vertebral arteries are codominant. There is no aneurysm, high-grade stenosis, or focal vessel cutoff identified throughout the intracranial circulation. Dural sinuses: Clear as visualized. Orbits: The bony orbits are intact. The orbital contents are normal as visualized. There are bilateral ocular lens implants. Sinuses and mastoids: The visualized paranasal sinuses are clear. The mastoid air cells are well pneumatized. Calvarium: There are changes from right occipital craniectomy. No destructive bony lesion is seen. IMPRESSION: 1. Senescent changes as above with no hemorrhage, enhancing mass, or evidence of acute territorial ischemia by CT criteria. 2. Unremarkable CT angiogram of the brain. 3. On the initial scan there is opacification of the right side intracranial vessels only, likely related to right-sided arterial injection as opposed to venous. Electronically signed by: Venkat Martinez M.D. 05/02/2017 7:16 AM Dictated Date/Time: 05/02/2017 7:09 AM
--- NOTE | 2017-05-02 07:22 | DIAGNOSTIC IMAGING REPORT ---
NECK CTA HISTORY: Left extremity weakness. Stroke. TECHNIQUE: Multiaxial CT images of the neck were performed following the intravenous administration of contrast to evaluate the major cervical vessels. Maximum intensity projection images were also obtained. All measurements were calculated based on NASCET criteria. A dose lowering technique was utilized adhering to the principles of ALARA. COMPARISON STUDY: None. FINDINGS: There is a right subclavian arterial catheter which extends into the proximal right common carotid artery. Suboptimal opacification of the arterial structures. Mild calcified plaque within the right carotid bulb. There is mild to moderate calcified plaque within the left carotid bulb. No significant stenosis or occlusion identified within the carotid arteries. Cervical vertebral arteries are patent. Mild focal calcified plaque within the distal left vertebral artery at the intracranial portion resulting in mild focal stenosis. The visualized lungs are clear. The trachea is patent. Paranasal sinuses and mastoid air cells are clear. Right-sided suboccipital craniectomy is noted. Dense calcification within the right thyroid lobe. Right-sided enhancement within the neck is due to the arterial injection. IMPRESSION: 1. Suboptimal evaluation of the cervical vessels due to the arterial injection. The right subclavian catheter is located within the subclavian artery with the tip extending into the proximal right common carotid artery. This should be removed. 2. However, there is no significant stenosis or occlusion identified within the cervical carotid or vertebral arteries. Electronically signed by: Gary Duran M.D. 05/02/2017 7:20 AM Dictated Date/Time: 05/02/2017 7:14 AM
--- NOTE | 2017-05-02 07:58 | DIAGNOSTIC IMAGING REPORT ---
Brain MRI WITH AND WITHOUT CONTRAST HISTORY: Slurred speech. L arm weakness and dysphasia TECHNIQUE: Multiplanar multisequence MRI of the brain was performed both before and after the intravenous administration of contrast. COMPARISON STUDY: Head CT 05/01/2017. FINDINGS: Multiple scattered small foci of restricted diffusion seen within the right frontal lobe at the high convexity and coronal radiata. Dominant focus of restricted diffusion within the right frontal lobe measures 1.8 cm. Scattered foci of T2 hyperintensity seen within the periventricular and subcortical white matter consistent with moderate to severe microvascular ischemic change. There are mild atrophic changes within the brain. Paranasal sinuses and mastoid air cells are clear. Hyperenhancement within the right cerebral hemisphere is due to the arterial injection. IMPRESSION: 1. Multiple scattered small acute infarcts within the right frontal lobe. 2. Hyperenhancement within the right cerebral hemisphere is due to the arterial injection. Electronically signed by: Gary Duran M.D. 05/02/2017 7:56 AM Dictated Date/Time: 05/02/2017 7:43 AM
[2017-05-02] MEDS: LISINOPRIL 2.5 MG TAB PO SCH (08:35)
[2017-05-02] MEDS: FAMOTIDINE 20 MG TAB PO SCH ×2 (08:35→20:36)
[2017-05-02] MEDS: PHENAZOPYRIDINE HCL 200 MG TAB PO SCH ×3 (08:35→20:37)
[2017-05-02] MEDS: OXYBUTYNIN CHLORIDE 5 MG TAB PO SCH ×3 (08:35→20:36)
[2017-05-02] MEDS: DOCUSATE SODIUM/SENNA 50/8.6MG TAB PO SCH ×2 (08:35→20:37)
[2017-05-02] MEDS: DULOXETINE HCL 60 MG CAP PO SCH (08:35)
--- NOTE | 2017-05-02 08:41 | Procedure Note: [facility] Only ---
Procedure Note Date of Service May 02, 2017. Procedure ICU physician was notified at 720 am on 05/02/17 of R subclavian catheter with its tip in the proximal right common carotid artery. There was no stenosis or occlusion in the cervical carotid or vertebral artery. This image was obtained by CT angiography. Dr. Colvin and Dr. Adame went up to evaluate the patient immediately and removed the catheter with a central line removal kit. The central line was removed without any difficulty or resistance. Firm pressure was applied above and below insertion site for 30 minutes. From 730am - 800am. After firm pressure was applied the area was evaluated and there was no hematoma or miriam bleeding present. The area was dressed with a pressure dressing and elastoplast tape was used to secure the dressing The nurse was notified of the procedure and was told to inform the ICU staff if she noticed, any swelling, bleeding or hematoma formation at the site
[2017-05-02] MEDS: FLUCONAZOLE 100 MG TAB PO SCH (12:02)
[2017-05-02] MEDS: ERTAPENEM IV 1 GM in SODIUM CHLOR 0.9% AD-VAN 50ML 50 ML IV SCH (12:05)
--- NOTE | 2017-05-02 12:42 | ECHOCARDIOGRAM REPORT ---
*NOTICE TO RECEIVING [employer] This information is strictly Confidential and protected under [place] law. [place] law prohibits you from making any further disclosure of this information unless further disclosure is expressly permitted by the written consent of the person to whom it pertains or is authorized by law. A general authorization for the release of medical or other information is not sufficient for this purpose. Hospital accepts no responsibility if the information is made available to any other person, INCLUDING THE PATIENT. Interpretation Summary * Name: AMAURY WILDE Study Date: 05/02/2017 09:50 AM BP: 158/77 mmHg * Patient Location: .[id number]\S\1 HR: 104 * : 1935 (M/d/yyyy) Gender: Female Height: 61 in * Age: 81 yrs Ethnicity: CA Weight: 161 lb * Ordering Physician: Airam Adamson * Referring Physician: Self, Referred * Performed By: Darlene Forte RDCS * * Reason For Study: CVA * BSA: 1.7 m2 * -- Conclusions -- * 1. Technically difficult study * 2. Grossly normal LV size and function. LVEF 60-65%. Cannot exclude regional wall motion abnormalities. * 3. RV not well visualized. * 4. No gross valvular pathology. * 5. Negative saline contrast study. Procedure Details * A complete two-dimensional transthoracic echocardiogram was performed (2D, M-mode, Doppler and color flow Doppler). * A saline contrast injection was performed to assess for cardiac shunting. * The injection was performed through an intravenous line in the right arm. * The attending nurse who injected the saline contrast was Ramírez Nelson RN. * A total of 30 cc of agitated saline was given. * The study was technically limited. * The study was technically difficult. * There were technical limitations due to patient'sinability to cooperate Left Ventricle * The left ventricle is grossly normal size. * Ejection Fraction = 60-65%. * Regional wall motion abnormalities cannot be excluded due to limited visualization. Right Ventricle * The right ventricle is not well visualized. Atria * The left atrium is not well visualized. * Right atrium not well visualized. * Injection of contrast documented no interatrial shunt. Mitral Valve * There is mild to moderate mitral annular calcification. * The mitral valve is not well visualized. * There is no mitral valve stenosis. * Significant mitral regurgitation is absent. Tricuspid Valve * There is trace tricuspid regurgitation. Aortic Valve * The aortic valve is not well visualized. * No hemodynamically significant valvular aortic stenosis. * There is no significant aortic regurgitation. Pulmonic Valve * The pulmonic valve is not well visualized. Great Vessels * The aortic root and proximal ascending aorta are normal sized. Pericardium/Pleural * There is no pericardial effusion. Great Vessels * Normal inferior vena cava size and collapsability with sniff indicates a normal right atrial pressure of 3 mmHg MMode 2D Measurements and Calculations Ao root diam 3.0 cm Ao root area 7.3 cm\S\2 ACS 1.7 cm asc Aorta Diam 3.2 cm Doppler Measurements and Calculations MV E max rubia 37.3 cm/sec MV A max rubia 105.3 cm/sec MV E/A 0.35 Ao V2 max 131.7 cm/sec Ao max PG 6.9 mmHg Ao max PG (full) 3.7 mmHg LV V1 max PG 3.3 mmHg LV V1 max 90.2 cm/sec TR max rubia 184.6 cm/sec
[2017-05-02] MEDS ORDERED: LORAZEPAM 2 MG/ML 1 ML VIAL **EMERGENCY USE ONE (15:37)
[2017-05-02] MEDS ORDERED: LORAZEPAM INJ 1 MG in SYRINGE 0.5 ML IV STA (15:45)
--- NOTE | 2017-05-02 16:15 | Palliative Care Consultation ---
Consultation Date of Consultation: May 02, 2017. Requesting Physician: Dr. Colvin Attending Physician: Dr. Sanders Reason for Consultation: Goals of care History of Present Illness This 81 year old female patient with PMH recurrent UTI, kidney stone, CKD stage III, lupus, GERD, osteoporosis, and others listed below, presented to the ED five days ago with c/o dizziness and weakness. History obtained from report and record, none from patient. Apparently at baseline this patient is awake and oriented, lives home alone in her apartment using a walker. Her daughters noticed that patient was behaving how she has in the past when she's had a UTI. CT head upon arrival showed nothing acute, CT abd/pelvis showed 4mm stone in left utereter without significant hydronephrosis among other findings listed in report. A left ureteral stone was placed on 04/29. Infectious disease was following and patient was to be discharged on two more weeks of IV abx-- therefore patient was to go to [facility] to receive the abx. Several attempts were made to place PICC line, but were unsuccessful. The critical care team was consulted to place a central catheter. A JACC line was placed into the right side. Placement into the subclavian vein was confirmed by CXR. In reading the documentation from yesterday, apparently the patient began to have left sided weakness and was noted by daughters to not be acting right. Per documentation and report, there was apparently some waxing and waning of patient 's mental status, as there were also periods where patient seemed to return to normal. They were uncomfortable transferring her to [facility], so discharge was cancelled. CT head was obtained yesterday around 174 which showed nothing acute. Later in the evening, the patient suddenly became lethargic with garbled speech-- please see nursing and provider documentation for exact timeline. MRI of the brain was obtained which showed right frontal infarcts. Around 0330, CTA head/neck was performed which showed the subclavian catheter to actually be in the subclavian artery, with the tip extending into the internal carotid artery. The ICU team was contacted this morning at 0720 and the catheter was removed by 0730. Patient's stroke was significant as she is now essentially unresponsive except for occasionally moving her right arm and right foot. Left side is flaccid. Palliative care was consulted to meet with family and providers to be an extra layer of support in decision making. A family meeting was held at 1430 in room 283-2 with myself, Christofer Cervantes PA-C, Dr. Sanders, three daughters, a son-in-law, patient's [id number] and his , and a grandson. Dr. Colvin did an excellent job of recapping the events of patient's hospitalization and the last 24 hours, as well as extensively explaining patient 's medical conditions. The family all verbalized understanding. They state that their mother would never want to live life in a poor state of quality. They know she would not want to live with a feeding tube in a debilitated state. They would like some time to discuss with each other about whether or not to pursue pure comfort measures and/or stopping abx. Options were presented to them for continuing/discontinuing treatment as well as taking patient home on hospice. ROS unable to be obtained at this time. Physical exam not performed by me at this time due to family's request to have some private time with each other and the patient in the room. They will contact the team when they have reached a decision or if they have further questions. Past Medical/Surgical History Medical History: (1) Benign hypertension Status: Chronic (2) Chronic kidney disease stage 3 Status: Chronic (3) Depression Status: Chronic (4) Diverticular disease of colon Status: Chronic (5) Gastroesophageal reflux disease Status: Chronic (6) History of calculus of kidney Permanent Comment: s/p lithotripsy Status: Chronic (7) History of Clostridium difficile infection Status: Chronic (8) History of esophageal stricture Status: Chronic (9) Hypothyroidism Status: Chronic (10) Osteoporosis Status: Chronic (11) Recurrent UTI Status: Chronic (12) S/P ECT (electroconvulsive therapy) Status: Chronic (13) Spinal stenosis Status: Chronic (14) Spondylolisthesis Status: Chronic (15) Systemic lupus erythematosus Status: Chronic (16) Trigeminal neuralgia Status: Chronic Surgical Problems: (1) History of esophageal dilatation Status: Chronic (2) S/P lumbar fusion Status: Chronic (3) Stat post lithotripsy Status: Chronic (4) Status post cataract extraction Status: Chronic (5) Status post cholecystectomy Status: Chronic (6) Status post hip replacement Status: Chronic (7) Status post hysterectomy Status: Chronic Social History Smoking Status: Never Smoker History of Alcohol Use: No Drug Use: none Marital Status: Housing Status: lives alone Occupation Status: retired Review of Systems unable to obtain as patient is lethargic/obtunded Allergies Coded Allergies: Sulfamethoxazole w/Trimethoprim (Verified Allergy, Severe, "lips swell", 04/27/17) Sulfa Antibiotics (Verified Allergy, Unknown, swelling of lips, 04/27/17) Codeine (Verified Adverse Reaction, Mild, "nauseated", 04/27/17) Propoxyphene (Verified Adverse Reaction, Mild, "nauseated", 04/27/17) Medications Current Inpatient Medications Medications (Trade) Dose Ordered Sig/Sana Route Start Time Stop Time Status Last Admin Dose Admin Acetaminophen (Tylenol Tab) 650 mg Q4H PRN PO 04/27/17 20:00 05/27/17 19:59 04/29/17 21:00 650 MG Baclofen (Lioresal Tab) 10 mg HS PRN PO 04/27/17 20:00 05/27/17 19:59 Duloxetine HCl (Cymbalta Cap) 60 mg QAM PO 04/28/17 09:00 05/28/17 08:59 05/01/17 08:31 60 MG Levothyroxine Sodium (Synthroid Tab) 75 mcg DAILYBB PO 04/28/17 06:30 05/28/17 06:29 05/01/17 05:59 75 MCG Lorazepam (Ativan Tab) 0.5 mg Q8H PRN PO 04/27/17 20:00 05/27/17 19:59 Prednisone (PredniSONE TAB) 10 mg QDL PO 04/28/17 12:00 05/28/17 11:59 05/01/17 11:47 10 MG Senna/Docusate Sodium (Senokot S Tab) 1 tab BID PO 04/27/17 21:00 05/27/17 20:59 05/01/17 20:27 1 TAB Ondansetron HCl (Zofran Inj) 4 mg Q6H PRN IV 04/27/17 20:00 05/27/17 19:59 04/30/17 15:03 4 MG Acetaminophen 100 ml @ 400 mls/hr Q8H PRN IV 04/27/17 20:00 05/27/17 19:59 05/02/17 14:13 400 MLS/HR Potassium Chloride/Sodium Chloride 1,000 ml @ 60 mls/hr [id number] IV 04/27/17 21:30 05/27/17 21:29 05/02/17 05:57 60 MLS/HR Hydralazine HCl (HydrALAZINE INJ) 10 mg Q6 PRN IV. 04/29/17 00:15 05/29/17 00:14 04/30/17 07:42 10 MG Acetaminophen/ Hydrocodone Bitart ([place] 5/325 Tab) 1 tab Q6 PRN PO 04/29/17 12:15 05/13/17 12:14 Famotidine (Pepcid Tab) 20 mg BID PO 04/29/17 21:00 05/29/17 20:59 05/01/17 20:24 20 MG Phenazopyridine HCl (Pyridium Tab) 200 mg TID PO 04/30/17 09:00 05/30/17 08:59 05/01/17 20:24 200 MG Ertapenem 1 gm/ Sodium Chloride 50 ml @ 120 mls/hr Q24H IV 04/30/17 12:00 05/14/17 11:59 05/02/17 12:05 120 MLS/HR Fluconazole (Diflucan Tab) 100 mg Q24H PO 04/30/17 13:00 05/10/17 12:59 05/01/17 13:06 100 MG Zolpidem Tartrate (Ambien Tab) 5 mg HS PRN PO 04/30/17 21:00 05/30/17 20:59 Oxybutynin Chloride (Ditropan Tab) 5 mg TID PO 05/01/17 09:00 05/31/17 08:59 05/01/17 20:28 5 MG Lisinopril (Zestril Tab) 2.5 mg QAM PO 05/01/17 11:00 05/31/17 10:59 05/01/17 13:06 2.5 MG Artificial Tears (Lacri-Lube Oph Oint) 1 appln PRN PRN OPB 05/01/17 19:30 05/31/17 19:29 05/01/17 20:13 1 APPLN Heparin Sodium (Porcine) (Heparin 10 Unit/ ml 5 ml Flush) 5 ml PRN PRN FLUSH 05/02/17 00:15 06/01/17 00:14 05/02/17 00:26 5 ML Gadobutrol (Gadavist) 7 mmol UD PRN IV 05/02/17 01:20 05/06/17 01:19 Ioversol (Optiray 320) 100 ml UD PRN IV 05/02/17 04:00 05/06/17 03:59 Miscellaneous Information (Nursing Verbal Med Order) 1 ea ONE ONCE N/A 05/02/17 15:45 05/02/17 15:46 UNV Physical Exam Date Time Temp Pulse Resp B/P (MAP) Pulse Ox O2 Delivery O2 Flow Rate FiO2 05/02/17 14:08 38.6 05/02/17 12:00 Oxymask 2.0 05/02/17 11:21 38.4 109 24 124/72 (89) 90 Nasal Cannula 2.0 05/02/17 08:34 39.0 146/84 (104) 05/02/17 07:45 Oxymask 2.0 05/02/17 07:29 38.5 107 18 181/104 (129) 91 Nasal Cannula 2.0 05/02/17 04:45 38.0 104 24 158/77 (104) 94 Oxymask 2.0 05/02/17 00:00 Room Air 05/01/17 22:20 93 Room Air 05/01/17 21:49 85 171/85 (113) 05/01/17 19:56 36.9 91 18 172/94 (120) 92 Room Air 05/01/17 17:19 36.8 99 139/81 (100) 92 Room Air 05/01/17 16:25 36.5 89 18 91 Room Air 05/01/17 15:54 Room Air no physical exam performed by me at this time Laboratory Results Last 24 Hours Test 05/01/17 16:19 05/01/17 20:05 05/01/17 22:27 05/01/17 22:37 Bedside Glucose 123 mg/dl 102 mg/dl White Blood Count 13.26 K/uL Red Blood Count 3.50 M/uL Hemoglobin 11.0 g/dL Hematocrit 33.6 % Mean Corpuscular Volume 96.0 fL Mean Corpuscular Hemoglobin 31.4 pg Mean Corpuscular Hemoglobin Concent 32.7 g/dl Platelet Count 380 K/uL Mean Platelet Volume 9.1 fL Neutrophils (%) (Auto) 71.9 % Lymphocytes (%) (Auto) 17.4 % Monocytes (%) (Auto) 9.4 % Eosinophils (%) (Auto) 0.2 % Basophils (%) (Auto) 0.1 % Neutrophils # (Auto) 9.54 K/uL Lymphocytes # (Auto) 2.31 K/uL Monocytes # (Auto) 1.24 K/uL Eosinophils # (Auto) 0.03 K/uL Basophils # (Auto) 0.01 K/uL RDW Standard Deviation 53.1 fL RDW Coefficient of Variation 15.2 % Immature Granulocyte % (Auto) 1.0 % Immature Granulocyte # (Auto) 0.13 K/uL Sodium Level 136 mmol/L Potassium Level 4.4 mmol/L Chloride Level 106 mmol/L Carbon Dioxide Level 21 mmol/L Anion Gap 9.0 mmol/L Blood Urea Nitrogen 18 mg/dl Creatinine 1.01 mg/dl Est Creatinine Clear Calc Drug Dose 39.3 ml/min Estimated GFR () 60.0 Estimated GFR (Non- 51.8 BUN/Creatinine Ratio 17.7 Random Glucose 105 mg/dl Calcium Level 8.8 mg/dl Phosphorus Level 3.0 mg/dl Magnesium Level 2.1 mg/dl Total Bilirubin 0.3 mg/dl Aspartate Amino Transf (AST/SGOT) 14 U/L Alanine Aminotransferase (ALT/SGPT) 18 U/L Alkaline Phosphatase 56 U/L Troponin I < 0.015 ng/ml Total Protein 6.8 gm/dl Albumin 3.0 gm/dl Globulin 3.8 gm/dl Albumin/Globulin Ratio 0.8 Arterial Blood pH 7.45 Arterial Blood Partial Pressure CO2 32 mmHg Arterial Blood Partial Pressure O2 69 mm/Hg Arterial Blood HCO3 22 mmol/L Arterial Blood Oxygen Saturation 92.3 % Arterial Blood Base Excess -1.3 mEq/L Arterial Blood Gas Delivery ROOM AIR Wagner Test POS Test 05/02/17 02:29 05/02/17 07:59 05/02/17 11:34 Bedside Glucose 90 mg/dl 105 mg/dl 118 mg/dl Assessment & Plan Problem list: Lethargy/weakness/obtundation s/p right frontal stroke Right frontal CVA NPO status 2/2 obtundation left ureteral stone s/p stent with associated UTI-ESBL Hx lupus Goals of care (Z51.5) Palliative care recs: discussed extensively with family members and providers listed in HPI. -For now, continue current medical care. -Family understands that no PO medications or nutrition may be given at this time. They do not want to place a feeding tube. -Patient was already made DNR/level 5 resuscitation prior to this meeting. -Family is making decision on whether or not to pursue comfort measures only. If they do, they have already stated that they would most definitely want to take the patient home on hospice. They live in [place]. -Further recommendations to be made once family as made a decision. Thank you for consulting me on this patient and her family. I will follow as needed.
--- NOTE | 2017-05-02 18:33 | Progress Note ---
Progress Note Date of Service May 02, 2017. Progress Note Update 16:00 Was called by nurse. Patient had a tonic clonic seizure that was mainly on her left side, accompanied by grunts and blinking. Patient responded with 1 mg of lorazepam after about 2 minutes. Event last 4-5 minutes in total. This event was witnessed by family. Family was updated after seizure. May consider loading patient with dilantin if patient has another seizure.
--- NOTE | 2017-05-02 18:33 | Progress Note ---
Subjective Date of Service: May 02, 2017. Subjective Pt evaluation today including: conversation w/ patient, physical exam, chart review, lab review Patient is an 81 year old female who was going to be discharged yesterday, however, suffered a stroke yesterday after subclavian line placement. Recapping the events yesterday: CT scan was ordered at around 1742 which showed nothing. However, due to confusion. Patient discharged was withheld. It appears her augmentation waxed and waned during the hours there after. Then MRI was later obtained which showed right frontal infarcts. Stroke neurologist from [place] was consulted and patient was not deemd a tPA candidate. CTA of neck was performed showed that the subclavian catheter was in the subclavian artery with the tip extending into the internal carotid artery. I discussed case with ICU team in the early childhood director. Dr. Colvin had already spoken with Vi, one of the daughters of Mrs. Vieira. I went to discuss with family, but family had already left. Palliative care was consulted, and a family meeting was scheduled for the afternoon. Safia from Palliative care was present, as well as Christofer Truong, and myself. 3 daughters were present as well as the son in law, patient brother in- law and his , and grandson. Dr. Smith recapped the events of the patients hospitalization as well as patient as current condition and prognosis. Patient remains non verbal throughout the day. It appears there was a moment, where the patient reacted to the voice of a family member. But that is no longer the case. ROS is negative aside from left sided paralysis, nystagmus and patient being unresponsive due to stroke, Problem List Medical Problems: (1) Acute kidney injury Status: Acute (2) Altered mental state Status: Acute (3) Compression fx, thoracic spine Status: Acute (4) Failure of outpatient treatment Status: Acute (5) Generalized weakness Status: Acute (6) Leukocytosis Status: Acute (7) Sepsis secondary to UTI Status: Acute (8) UTI (urinary tract infection) Status: Acute (9) UTI (urinary tract infection) Status: Acute (10) Weakness Status: Acute Surgical Problems: (1) History of esophageal dilatation Status: Chronic Review of Systems Constitutional: + see HPI Eyes: + see HPI ENT: + see HPI Respiratory: + see HPI Cardiac: + see HPI Breast: + see HPI Abdomen: + see HPI Musculoskeletal: + see HPI Female : + see HPI Neurologic: + see HPI Psychiatric: + see HPI Heme: + see HPI Endo: + see HPI Skin: + see HPI All Other Systems: Reviewed and Negative Objective Vital Signs Date Time Temp Pulse Resp B/P (MAP) Pulse Ox O2 Delivery O2 Flow Rate FiO2 05/02/17 14:08 38.6 05/02/17 12:00 Oxymask 2.0 05/02/17 11:21 38.4 109 24 124/72 (89) 90 Nasal Cannula 2.0 05/02/17 08:34 39.0 146/84 (104) 05/02/17 07:45 Oxymask 2.0 05/02/17 07:29 38.5 107 18 181/104 (129) 91 Nasal Cannula 2.0 05/02/17 04:45 38.0 104 24 158/77 (104) 94 Oxymask 2.0 05/02/17 00:00 Room Air 05/01/17 22:20 93 Room Air 05/01/17 21:49 85 171/85 (113) 05/01/17 19:56 36.9 91 18 172/94 (120) 92 Room Air Physical Exam General Appearance: + pertinent finding (unresponisve) Eyes: + pertinent finding (nystagmus, unreactive to light) Neck: supple, no adenopathy Respiratory/Chest: chest non-tender, lungs clear Cardiovascular: regular rate, rhythm, no edema, no gallop Abdomen: normal bowel sounds, non tender Extremities: no pedal edema Neurologic/Psychiatric: + pertinent finding (unresponsive, does not react to pain, ) Lymphatic: no adenopathy Laboratory Results Last 24 Hours Test 05/01/17 20:05 05/01/17 22:27 05/01/17 22:37 05/02/17 02:29 Bedside Glucose 102 mg/dl 90 mg/dl White Blood Count 13.26 K/uL Red Blood Count 3.50 M/uL Hemoglobin 11.0 g/dL Hematocrit 33.6 % Mean Corpuscular Volume 96.0 fL Mean Corpuscular Hemoglobin 31.4 pg Mean Corpuscular Hemoglobin Concent 32.7 g/dl Platelet Count 380 K/uL Mean Platelet Volume 9.1 fL Neutrophils (%) (Auto) 71.9 % Lymphocytes (%) (Auto) 17.4 % Monocytes (%) (Auto) 9.4 % Eosinophils (%) (Auto) 0.2 % Basophils (%) (Auto) 0.1 % Neutrophils # (Auto) 9.54 K/uL Lymphocytes # (Auto) 2.31 K/uL Monocytes # (Auto) 1.24 K/uL Eosinophils # (Auto) 0.03 K/uL Basophils # (Auto) 0.01 K/uL RDW Standard Deviation 53.1 fL RDW Coefficient of Variation 15.2 % Immature Granulocyte % (Auto) 1.0 % Immature Granulocyte # (Auto) 0.13 K/uL Sodium Level 136 mmol/L Potassium Level 4.4 mmol/L Chloride Level 106 mmol/L Carbon Dioxide Level 21 mmol/L Anion Gap 9.0 mmol/L Blood Urea Nitrogen 18 mg/dl Creatinine 1.01 mg/dl Est Creatinine Clear Calc Drug Dose 39.3 ml/min Estimated GFR () 60.0 Estimated GFR (Non- 51.8 BUN/Creatinine Ratio 17.7 Random Glucose 105 mg/dl Calcium Level 8.8 mg/dl Phosphorus Level 3.0 mg/dl Magnesium Level 2.1 mg/dl Total Bilirubin 0.3 mg/dl Aspartate Amino Transf (AST/SGOT) 14 U/L Alanine Aminotransferase (ALT/SGPT) 18 U/L Alkaline Phosphatase 56 U/L Troponin I < 0.015 ng/ml Total Protein 6.8 gm/dl Albumin 3.0 gm/dl Globulin 3.8 gm/dl Albumin/Globulin Ratio 0.8 Arterial Blood pH 7.45 Arterial Blood Partial Pressure CO2 32 mmHg Arterial Blood Partial Pressure O2 69 mm/Hg Arterial Blood HCO3 22 mmol/L Arterial Blood Oxygen Saturation 92.3 % Arterial Blood Base Excess -1.3 mEq/L Arterial Blood Gas Delivery ROOM AIR Wagner Test POS Test 05/02/17 07:59 05/02/17 11:34 05/02/17 15:33 Bedside Glucose 105 mg/dl 118 mg/dl 146 mg/dl Assessment and Plan 81 yo female who was here for urosepsis seconary to infected urolithiasis s/p stent placement suffered a stroke during hospitalization likely secondary to IV line placement. The family all verbalized understanding. They state that their mother would never want to live life in a poor state of quality. They know she would not want to live with a feeding tube in a debilitated state. They would like some time to discuss with each other about whether or not to pursue pure comfort measures and/or stopping abx. Options were presented to them for continuing/ discontinuing treatment as well as taking patient home on hospice. Family at this time were undecided as to their plan. As of right now, they are leaning towards hospice but are not sure. will continue current plan. Will likely stop medications tomorrow as patient will be transferred to hospice services. Spent over 45 minutes with family discussing plan of care and recapping events.
[2017-05-03] MEDS: NSS + 20MEQ KCL 1000ML 1,000 ML IV SCH (01:25)
[2017-05-03 04:20] VITALS: BP 121/59; PULSE 72; TEMP 37.3; O2SAT 93
[2017-05-03] MEDS: LEVOTHYROXINE 75 MCG TAB PO SCH (05:54)
[2017-05-03] MEDS: DULOXETINE HCL 60 MG CAP PO SCH (07:20)
[2017-05-03] MEDS: OXYBUTYNIN CHLORIDE 5 MG TAB PO SCH ×2 (07:20→07:22)
[2017-05-03] MEDS: FAMOTIDINE 20 MG TAB PO SCH (07:20)
[2017-05-03] MEDS: PHENAZOPYRIDINE HCL 200 MG TAB PO SCH ×2 (07:20→07:22)
[2017-05-03] MEDS: FLUCONAZOLE 100 MG TAB PO SCH (07:21)
[2017-05-03] MEDS: LISINOPRIL 2.5 MG TAB PO SCH (07:21)
[2017-05-03] MEDS: DOCUSATE SODIUM/SENNA 50/8.6MG TAB PO SCH (07:21)
[2017-05-03 07:30] VITALS: BP 114/57; PULSE 109; TEMP 36.6; TEMP 38.6; O2SAT 96
[2017-05-03 07:52] VITALS: BP 112/60; PULSE 113; TEMP 38.7; O2SAT 93
[2017-05-03] MEDS ORDERED: LORAZEPAM INJ 1 MG in SYRINGE 0.5 ML IV ONE (08:30)
[2017-05-03] MEDS ORDERED: LORAZEPAM 2 MG/ML 1 ML VIAL ONE ×3 (08:36→13:15)
[2017-05-03] MEDS ORDERED: LORAZEPAM INJ 1 MG in SYRINGE 0.5 ML IV STA ×2 (10:08→13:14)
[2017-05-03] MEDS ORDERED: PHENYTOIN IV ONE (10:15)
[2017-05-03 11:32] VITALS: BP 116/69; PULSE 99; TEMP 38.7; O2SAT 93
[2017-05-03] MEDS: ERTAPENEM IV 1 GM in SODIUM CHLOR 0.9% AD-VAN 50ML 50 ML IV SCH (12:00)
--- NOTE | 2017-05-03 12:19 | Critical Care Progress Note ---
Critical Care Progress Note Date of Service May 03, 2017. Critical Care Progress Note Briefly this is a 81-year-old female patient who was admitted on 04/27 with a working diagnosis of sepsis, complicated UTI secondary to retained kidney stone , with a significant past medical history of GERD, hypothyroidism, B12 deficiency, lupus on chronic prednisone therapy. She underwent a cystoscopy with left ureteral stenting on 04/29. Urine culture revealed a and ESBL Escherichia coli which was going to require a prolonged course of IV antibiotics. For the daily administration of antibiotics, advanced vascular access was requested and the patient did not have adequate vasculature for a midline or peripherally inserted central catheter.. The decision was made to proceed with JACC central venous access. The subclavian site was chosen for minimization of infection risk. Initial attempt at ultrasound-guided subclavian access was unsuccessful due to the subclavian vein being in close proximity to the lung. I was able to deformed the subclavian vein the syringe however I was unable to cannulate the vessel and the procedure was aborted due to my concern for applying additional pressure and traveling through the back wall of the vessel thus allowing the needle to into the chest cavity. A landmark approach to the subclavian was then undertaken in standard fashion. Following standard technique there was no pulsatile blood flow nor bright hue to indicate arterial puncture. The patient was able to converse and denied any pain during the procedure. The guidewire passed easily and the JACC catheter was inserted. Postprocedure x-ray was reviewed which demonstrated the catheter to be in acceptable position, and the patient tolerated the procedure well. Additionally I discussed this x-ray with the radiologist, Dr. Waggoner, in his office as well as later reviewed the formal radiology report. Later that day the patient had been complaining of some neurological symptoms and underwent a noncontrast head CT which was reported as negative. Neuro symptoms were reported to get worse and a code stroke was paged. The patient underwent an MRI which revealed multiple acute infarcts within the right frontal lobe. Additional testing to elucidate the etiology of these strokes was undertaken. I was notified at approximately 0700 by the resident of possible catheter in the subclavian artery. I discussed this case with Dr. Waggoner in his office who confirmed the impression, I notified vascular surgery Dr. Benitez who was present in the ICU and went to the patient's bedside and removed the catheter. Please see the procedure note for full details. I updated the patient's daughter, Vi regarding the diagnosis. Later that day the treatment team discussed with the entire family the events of the previous 24 hours, prognosis , answered questions, and further elucidated the patient's goals of care. Subsequent to this discussion the patient has appeared to have experienced seizure-like activity. She has been administered antiepileptic medications. Currently the family is discussing treatment options and what would be felt to be the patient's wishes. The over arching goal is patient comfort. The patient has been a very independent woman throughout her life and has expressed several times that she hopes to join her late . Her functional status has declined to a point that she is now in a personal care facility and utilizes a walker. It was conveyed that she has been frustrated with this level of gradual decline as she preferred to be living independently. Given the infarct, left sided paralysis, new onset seizure-like activity, I feel that the patient is an end-stage terminal condition without a meaningful chance of recovery to an acceptable functional status as described by the patient's family. She has previously expressed her desire to be a DO NOT RESUSCITATE, DO NOT INTUBATE in event of cardiac arrest. If the family felt it were in the patient's best interest to proceed with comfort measures only and stop active medical treatment I would be in agreement with such a decision.
[2017-05-03] MEDS ORDERED: NURSING VERBAL MED ORDER ONE (13:15)
--- NOTE | 2017-05-03 13:27 | Progress Note ---
Subjective Date of Service: May 03, 2017. Subjective Pt evaluation today including: conversation w/ family, physical exam, chart review, lab review 81 year old female who suffered astroke during this hospitalization, has been having multiple seizures today which restarted after 8am. They have lasted around 3-5 minutes. Patient remains unresponsive. Problem List Medical Problems: (1) Acute kidney injury Status: Acute (2) Altered mental state Status: Acute (3) Compression fx, thoracic spine Status: Acute (4) Failure of outpatient treatment Status: Acute (5) Generalized weakness Status: Acute (6) Leukocytosis Status: Acute (7) Sepsis secondary to UTI Status: Acute (8) UTI (urinary tract infection) Status: Acute (9) UTI (urinary tract infection) Status: Acute (10) Weakness Status: Acute Surgical Problems: (1) History of esophageal dilatation Status: Chronic Review of Systems Heme: + see HPI, + abnormal bleeding/bruising, + clotting problems, + swollen lymph nodes, + night sweats, + problem reported All Other Systems: Reviewed and Negative Medications Current Inpatient Medications Medications (Trade) Dose Ordered Sig/Sana Route Start Time Stop Time Status Last Admin Dose Admin Acetaminophen 100 ml @ 400 mls/hr Q8H PRN IV 04/27/17 20:00 05/27/17 19:59 05/02/17 14:13 400 MLS/HR Artificial Tears (Lacri-Lube Oph Oint) 1 appln PRN PRN OPB 05/01/17 19:30 05/31/17 19:29 05/01/17 20:13 1 APPLN Lorazepam 1 mg/ Syringe 1 ml @ 0.5 mls/min Q15M PRN IV 05/03/17 13:30 06/02/17 13:29 05/03/17 23:39 0.5 MLS/MIN Scopolamine (Transderm-Scop Patch) 1.5 mg Q72H TD 05/03/17 14:00 06/02/17 13:59 05/03/17 14:09 1.5 MG Miscellaneous (Remove Transderm-Scop Patch) 1 ea Q72H N/A 05/06/17 14:00 06/05/17 13:59 Miscellaneous Information (Check Scopolamine Patch Placement) 1 ea QS N/A 05/03/17 16:00 06/02/17 15:59 05/04/17 15:01 1 EA Lorazepam (Ativan Inj) 1 mg Q15M PRN IV 05/03/17 14:00 06/02/17 13:59 05/03/17 15:27 1 MG Morphine Sulfate (MoRPHine SULFATE INJ) 1 mg Q30M PRN IV 05/03/17 18:00 05/17/17 17:59 05/04/17 09:02 1 MG Atropine Sulfate (Atropine Sulfate 1% Oph Soln) 3 drops Q1H PRN PO 05/03/17 19:00 06/02/17 17:59 05/04/17 21:19 3 DROPS Phenytoin Sodium 100 mg/Syringe 2 ml @ 1 mls/min Q8H IV 05/03/17 21:00 06/02/17 20:59 05/04/17 21:12 1 MLS/MIN Sodium Chloride 20 ml/Syringe 20 ml @ 0 mls/min Q8H IV 05/03/17 21:00 06/02/17 20:59 05/04/17 21:12 20 MLS/MIN Objective Vital Signs Date Time Temp Pulse Resp B/P (MAP) Pulse Ox O2 Delivery O2 Flow Rate FiO2 05/03/17 12:00 Oxymask 2.0 05/03/17 11:32 38.7 99 20 116/69 (85) 93 Nasal Cannula 2.5 05/03/17 08:00 Oxymask 2.0 05/03/17 07:52 38.7 113 112/60 (77) 93 Oxymask 2.5 05/03/17 07:30 38.6 109 20 114/57 (76) 96 Oxymask 2.5 05/03/17 04:20 37.3 72 16 121/59 (79) 93 05/03/17 04:00 Oxymask 2.0 05/03/17 00:00 Oxymask 2.0 05/02/17 23:43 37.1 80 16 114/62 (79) 92 05/02/17 21:31 37.0 05/02/17 20:36 37.6 05/02/17 20:00 94 Oxymask 2.0 05/02/17 19:37 92 16 110/60 (77) 92 05/02/17 19:20 38.9 05/02/17 16:00 94 Oxymask 2.0 05/02/17 14:08 38.6 Physical Exam General Appearance: + pertinent finding (unresponsive) Eyes: + pertinent finding (horizontal nystagmus) Neck: supple, no adenopathy Respiratory/Chest: chest non-tender, lungs clear, normal breath sounds Cardiovascular: regular rate, rhythm, no edema Abdomen: soft, no organomegaly, no pulsatile mass Skin: normal color Lymphatic: no adenopathy Laboratory Results Last 24 Hours Test 05/02/17 15:33 05/02/17 20:20 05/03/17 07:42 05/03/17 11:44 Bedside Glucose 146 mg/dl 109 mg/dl 112 mg/dl 114 mg/dl Assessment and Plan 81 year old female who has an ischemic stroke after IV access attempt. Family decided on Comfort Measures only. Will stop antibiotics. Will initiate morphine, scopolamine patch, lorazepam, Dilantin bolus. Dr. Garzonpert aware as he has been discussing with me and family as well.
[2017-05-03] MEDS ORDERED: MoRPHine SULFATE 2 MG/ML CARP IV PRN (13:30)
[2017-05-03] MEDS: LORAZEPAM 2 MG/ML 1 ML VIAL IV PRN ×3 (13:54→15:27)
[2017-05-03] MEDS: SCOPOLAMINE 1.5 MG TDSY TD SCH (14:09)
[2017-05-03] MEDS: CHECK SCOPOLAMINE PATCH PLACEMENT SCH ×2 (14:31→23:39)
[2017-05-03] MEDS ORDERED: SODIUM CHLORIDE 0.9% IV ONE (15:30)
[2017-05-03] MEDS ORDERED: PHENYTOIN INFUSION IV ONE (15:30)
[2017-05-03] MEDS ORDERED: ATROPINE SULFATE 1% OP SOLN 5 ML BTL PO SCH (18:00)
[2017-05-03] MEDS: SODIUM CHLOR 0.9% 10ML FLUSH 20 ML in SYRINGE 0 ML IV SCH (21:21)
[2017-05-03] MEDS: PHENYTOIN IV 100 MG in SYRINGE 0 ML IV SCH (21:21)
[2017-05-03] MEDS: ATROPINE SULFATE 1% OP SOLN 5 ML BTL PO PRN ×2 (21:22→23:13)
[2017-05-03] MEDS: LORAZEPAM INJ 1 MG in SYRINGE 0.5 ML IV PRN ×2 (23:17→23:39)
[2017-05-04] MEDS ORDERED: SODIUM CHLOR 0.9% 10ML FLUSH 20 ML in SYRINGE 0 ML IV SCH (00:15)
[2017-05-04] MEDS ORDERED: PHENYTOIN IV 100 MG in SYRINGE 0 ML IV ONE (00:15)
[2017-05-04] MEDS: PHENYTOIN IV 100 MG in SYRINGE 0 ML IV SCH ×3 (05:05→21:12)
[2017-05-04] MEDS: SODIUM CHLOR 0.9% 10ML FLUSH 20 ML in SYRINGE 0 ML IV SCH ×3 (05:05→21:12)
[2017-05-04] MEDS: ATROPINE SULFATE 1% OP SOLN 5 ML BTL PO PRN ×3 (05:08→21:19)
[2017-05-04] MEDS: MoRPHine SULFATE 2 MG/ML CARP IV PRN ×3 (07:42→09:02)
[2017-05-04] MEDS: CHECK SCOPOLAMINE PATCH PLACEMENT SCH ×2 (07:43→15:01)
[2017-05-04] MEDS ORDERED: LORAZEPAM 2 MG/ML 1 ML VIAL IV STA ×3 (09:31→10:02)
[2017-05-04] MEDS ORDERED: LORAZEPAM 2 MG/ML 1 ML VIAL ONE ×2 (09:36→10:04)
--- NOTE | 2017-05-04 09:46 | Critical Care Progress Note ---
Critical Care Progress Note Date of Service May 04, 2017. Critical Care Progress Note Patient having increased seizure like activity at bedside despite loading with anti-epileptic medication. Patient comfort measures. Will proceed with ativan infusion for seizure control.
[2017-05-04] MEDS: LORAZEPAM INJ 50 MG in D5W 50ML IN *POLYOLEFIN BAG* 25 ML IV PRN ×6 (10:14→21:51)
[2017-05-04] MEDS ORDERED: NURSING VERBAL MED ORDER ONE (10:15)
--- NOTE | 2017-05-04 23:34 | Progress Note ---
Subjective Date of Service: May 04, 2017. Subjective Pt evaluation today including: conversation w/ family, physical exam 81 year old female who suffered a stroke after subclavian IV access attempt and is now comfort measures only. Family states that her seizures have decreased in duration and only lasts 5 seconds or less today as compared to minutes yesterday, which is an improvement. Nurse paged me prior and discussed possible options for seizure cessation, after she discussed case with pharmacist. Options Included loading with ativan and perhaps initiating keppra. I informed her that I discussed case wtih Dr. Colvin prior, and although I agree on loading with ativan, we will hold off the keppra. I went up to the floor with Dr. Colvin to verbally discuss with nursing staff as I felt resistance to this plan. Nursing staff stated that they were going to review with pharmacist. Will initiate lorazepam drip. I also discussed case with family, alongside Dr. Colvin. This occurred around 946 am today. Problem List Medical Problems: (1) Acute kidney injury Status: Acute (2) Altered mental state Status: Acute (3) Compression fx, thoracic spine Status: Acute (4) Failure of outpatient treatment Status: Acute (5) Generalized weakness Status: Acute (6) Leukocytosis Status: Acute (7) Sepsis secondary to UTI Status: Acute (8) UTI (urinary tract infection) Status: Acute (9) UTI (urinary tract infection) Status: Acute (10) Weakness Status: Acute Surgical Problems: (1) History of esophageal dilatation Status: Chronic Review of Systems All Other Systems: Reviewed and Negative Medications Current Inpatient Medications Medications (Trade) Dose Ordered Sig/Sana Route Start Time Stop Time Status Last Admin Dose Admin Acetaminophen 100 ml @ 400 mls/hr Q8H PRN IV 04/27/17 20:00 05/27/17 19:59 05/02/17 14:13 400 MLS/HR Artificial Tears (Lacri-Lube Oph Oint) 1 appln PRN PRN OPB 05/01/17 19:30 05/31/17 19:29 05/01/17 20:13 1 APPLN Lorazepam 1 mg/ Syringe 1 ml @ 0.5 mls/min Q15M PRN IV 05/03/17 13:30 06/02/17 13:29 05/03/17 23:39 0.5 MLS/MIN Scopolamine (Transderm-Scop Patch) 1.5 mg Q72H TD 05/03/17 14:00 06/02/17 13:59 05/03/17 14:09 1.5 MG Miscellaneous (Remove Transderm-Scop Patch) 1 ea Q72H N/A 05/06/17 14:00 06/05/17 13:59 Miscellaneous Information (Check Scopolamine Patch Placement) 1 ea QS N/A 05/03/17 16:00 06/02/17 15:59 05/04/17 15:01 1 EA Lorazepam (Ativan Inj) 1 mg Q15M PRN IV 05/03/17 14:00 06/02/17 13:59 05/03/17 15:27 1 MG Morphine Sulfate (MoRPHine SULFATE INJ) 1 mg Q30M PRN IV 05/03/17 18:00 05/17/17 17:59 05/04/17 09:02 1 MG Atropine Sulfate (Atropine Sulfate 1% Oph Soln) 3 drops Q1H PRN PO 05/03/17 19:00 06/02/17 17:59 05/04/17 21:19 3 DROPS Phenytoin Sodium 100 mg/Syringe 2 ml @ 1 mls/min Q8H IV 05/03/17 21:00 06/02/17 20:59 05/04/17 21:12 1 MLS/MIN Sodium Chloride 20 ml/Syringe 20 ml @ 0 mls/min Q8H IV 05/03/17 21:00 06/02/17 20:59 05/04/17 21:12 20 MLS/MIN Lorazepam 50 mg/ Dextrose 50 ml @ 0 mls/hr Q0M PRN IV 05/04/17 09:37 06/03/17 09:36 05/04/17 21:51 6 MLS/HR Objective Vital Signs Date Time Temp Pulse Resp B/P (MAP) Pulse Ox O2 Delivery O2 Flow Rate FiO2 05/04/17 20:00 Nasal Cannula 2.0 05/04/17 15:22 Nasal Cannula 2.0 05/04/17 07:40 Nasal Cannula 2.0 05/04/17 00:00 Nasal Cannula 2.0 Physical Exam General Appearance: + pertinent finding Comments: General Appearance: + pertinent finding (unresponsive) Eyes: + pertinent finding (horizontal nystagmus) Neck: supple, no adenopathy Respiratory/Chest: chest non-tender, lungs clear, normal breath sounds Cardiovascular: regular rate, rhythm, no edema Abdomen: soft, no organomegaly, no pulsatile mass Skin: normal color Lymphatic: no adenopathy Assessment and Plan 81 year old female who has an ischemic stroke after IV access attempt. Family decided on Comfort Measures only yesterday. Will stop antibiotics. Will continue morphine, scopolamine patch, lorazepam, atropine drops. Will initiate lorazepam infusion. Dr. Garzonpert aware as he has been discussing with me and family as well.
[2017-05-05] MEDS: CHECK SCOPOLAMINE PATCH PLACEMENT SCH ×3 (00:29→16:03)
[2017-05-05] MEDS: SODIUM CHLOR 0.9% 10ML FLUSH 20 ML in SYRINGE 0 ML IV SCH ×3 (05:01→21:04)
[2017-05-05] MEDS: PHENYTOIN IV 100 MG in SYRINGE 0 ML IV SCH ×3 (05:02→21:03)
[2017-05-05] MEDS: LORAZEPAM INJ 50 MG in D5W 50ML IN *POLYOLEFIN BAG* 25 ML IV PRN ×6 (05:57→23:48)
[2017-05-05] MEDS: MoRPHine SULFATE 2 MG/ML CARP IV PRN (10:36)
--- NOTE | 2017-05-05 11:13 | Progress Note ---
Subjective Date of Service: May 05, 2017. Subjective Pt evaluation today including: conversation w/ family (daughter, grand daughter ), physical exam, review of inpatient medication list Pain: appears comfortable PO Intake: NPO Voiding: irizarry catheter in place patient resting comfortably no seizure activity per family at the bedside daughter noticed that breathing changed slightly, more irregular all questions answered Problem List Medical Problems: (1) Acute kidney injury Status: Acute (2) Altered mental state Status: Acute (3) Compression fx, thoracic spine Status: Acute (4) Failure of outpatient treatment Status: Acute (5) Generalized weakness Status: Acute (6) Leukocytosis Status: Acute (7) Sepsis secondary to UTI Status: Acute (8) UTI (urinary tract infection) Status: Acute (9) UTI (urinary tract infection) Status: Acute (10) Weakness Status: Acute Surgical Problems: (1) History of esophageal dilatation Status: Chronic Review of Systems cannot reviewed, unresponsive Medications Current Inpatient Medications Medications (Trade) Dose Ordered Sig/Sana Route Start Time Stop Time Status Last Admin Dose Admin Acetaminophen 100 ml @ 400 mls/hr Q8H PRN IV 04/27/17 20:00 05/27/17 19:59 05/02/17 14:13 400 MLS/HR Artificial Tears (Lacri-Lube Oph Oint) 1 appln PRN PRN OPB 05/01/17 19:30 05/31/17 19:29 05/01/17 20:13 1 APPLN Lorazepam 1 mg/ Syringe 1 ml @ 0.5 mls/min Q15M PRN IV 05/03/17 13:30 06/02/17 13:29 05/03/17 23:39 0.5 MLS/MIN Scopolamine (Transderm-Scop Patch) 1.5 mg Q72H TD 05/03/17 14:00 06/02/17 13:59 05/03/17 14:09 1.5 MG Miscellaneous (Remove Transderm-Scop Patch) 1 ea Q72H N/A 05/06/17 14:00 06/05/17 13:59 Miscellaneous Information (Check Scopolamine Patch Placement) 1 ea QS N/A 05/03/17 16:00 06/02/17 15:59 05/05/17 07:31 1 EA Lorazepam (Ativan Inj) 1 mg Q15M PRN IV 05/03/17 14:00 06/02/17 13:59 05/03/17 15:27 1 MG Morphine Sulfate (MoRPHine SULFATE INJ) 1 mg Q30M PRN IV 05/03/17 18:00 05/17/17 17:59 05/05/17 10:36 1 MG Atropine Sulfate (Atropine Sulfate 1% Oph Soln) 3 drops Q1H PRN PO 05/03/17 19:00 06/02/17 17:59 05/04/17 21:19 3 DROPS Phenytoin Sodium 100 mg/Syringe 2 ml @ 1 mls/min Q8H IV 05/03/17 21:00 06/02/17 20:59 05/05/17 05:02 1 MLS/MIN Sodium Chloride 20 ml/Syringe 20 ml @ 0 mls/min Q8H IV 05/03/17 21:00 06/02/17 20:59 05/05/17 05:01 20 MLS/MIN Lorazepam 50 mg/ Dextrose 50 ml @ 0 mls/hr Q0M PRN IV 05/04/17 09:37 06/03/17 09:36 05/05/17 05:57 6 MLS/HR Objective Vital Signs Date Time Temp Pulse Resp B/P (MAP) Pulse Ox O2 Delivery O2 Flow Rate FiO2 05/05/17 07:48 Nasal Cannula 2.0 05/05/17 00:00 Nasal Cannula 2.0 05/04/17 20:00 Nasal Cannula 2.0 05/04/17 15:22 Nasal Cannula 2.0 Physical Exam General Appearance: WD/WN, no apparent distress Neck: supple, no adenopathy, no JVD, trachea midline Respiratory/Chest: chest non-tender, lungs clear, normal breath sounds, no respiratory distress, no accessory muscle use, + pertinent finding (irregular respirations) Cardiovascular: regular rate, rhythm, no edema, no gallop, no JVD, no murmur Abdomen: normal bowel sounds, non tender, soft, no organomegaly Extremities: normal range of motion, non-tender, normal inspection, no pedal edema, no calf tenderness, pelvis stable Neurologic/Psychiatric: + pertinent finding (unresponsive, left paralysis, facial droop) Skin: normal color, warm/dry, no rash Assessment and Plan 81 yo female initially admitted for urosepsis related to nephrolithiasis - Right frontal ischemic stroke, occurred after line placement left paralysis, facial droop, encephalopathy not eating or drinking comfort measures only - Seizure activity: related to stroke Ativan drip, no seizure activity today - Urosepsis: antibiotics stopped comfort measures in place needs to stay in hospital due to need for IV Ativan
--- NOTE | 2017-05-05 12:20 | Palliative Care Progress Note ---
Palliative Care Progress Note Date of Service May 05, 2017. Subjective Pt evaluation today including: conversation w/ family (daughterVi), physical exam, chart review, review of inpatient medication list Pain: unable to assess, patient is obtunded PO Intake: none Voiding: irizarry catheter in place (draining concentrated yellow urine) -Patient seen/examined today in room 412. DaughterVi, at bedside. -Patient is obtunded, resting peacefully while I was in room. -Per documentation and report by daughter, patient had a difficult weekend as she began seizing quite frequently. -Patient is now on lorazepam infusion at 6mg/hr. Receiving morphine 1mg IV Q30min PRN, only received one dose in last 24 hours. -DaughterVi, states that she is very happy with the care patient has received here at [facility]. Specifically, she expressed her gratitude to all the nurses and to Dr. Colvin. She has no questions/concerns at this time. Vi told me that her mother seems very comfortable and has been resting peacefully now. -Per Vi, family is all understanding of the fact that patient will not be leaving the hospital. We discussed time, and Vi is aware that it could be hours to days until patient expires. Review of Systems unable to obtain, patient is obtunded Objective Vital Signs Date Time Temp Pulse Resp B/P (MAP) Pulse Ox O2 Delivery O2 Flow Rate FiO2 05/05/17 07:48 Nasal Cannula 2.0 05/05/17 00:00 Nasal Cannula 2.0 05/04/17 20:00 Nasal Cannula 2.0 05/04/17 15:22 Nasal Cannula 2.0 Physical Exam General Appearance: no apparent distress Neck: no JVD Respiratory/Chest: no respiratory distress, + pertinent finding (does have some "belly breathing"- just got dose of morphine. some moistness noted in anterior upper airway) Cardiovascular: regular rate, rhythm, no edema, + normal peripheral pulses Abdomen: normal bowel sounds, soft Extremities: + pertinent finding (right knee and toes slightly cooler than left side) Neurologic/Psychiatric: + pertinent finding (obtunded) Skin: + pertinent finding (no mottling of lower extremities noted) Assessment and Plan Problem list: Lethargy/weakness/obtundation s/p right frontal stroke Right frontal CVA NPO status 2/2 obtundation Left ureteral stone s/p stent with associated UTI-ESBL Hx lupus Goals of care (Z51.5) Palliative care recs: discussed with patient's daughter, Vi, at bedside. -Over weekend, patient's family decided to place patient on comfort measures only. -All medications, including abx, unrelated to comfort have been discontinued. -Patient had frequent seizure activity over weekend, she is now on continuous lorazepam infusion at 6mg/hr. -Continue morphine 1mg IV Q1h PRN pain or SOB for comfort. -Continue scopolamine patch 1.5mg TD Q72h and atropine 1% oph soln 3 drops SL Q1h PRN secretions. -Patient remains on phenytoin for seizure activity. -Unstable for discharge, family is aware. I will continue to follow as needed. Thank you again for this consult. Continued [facility] stay due to: multiple IV medications needed, home environment unsafe for pt Discharge planning: uncertain
[2017-05-05] MEDS: ATROPINE SULFATE 1% OP SOLN 5 ML BTL PO PRN (14:18)
[2017-05-05 20:00] VITALS: O2SAT 93
[2017-05-06] MEDS: CHECK SCOPOLAMINE PATCH PLACEMENT SCH ×3 (00:13→16:38)
[2017-05-06] MEDS: PHENYTOIN IV 100 MG in SYRINGE 0 ML IV SCH ×3 (07:12→21:18)
[2017-05-06] MEDS: SODIUM CHLOR 0.9% 10ML FLUSH 20 ML in SYRINGE 0 ML IV SCH ×3 (07:12→21:18)
[2017-05-06] MEDS: LORAZEPAM INJ 50 MG in D5W 50ML IN *POLYOLEFIN BAG* 25 ML IV PRN ×4 (08:19→17:11)
[2017-05-06] MEDS: ATROPINE SULFATE 1% OP SOLN 5 ML BTL PO PRN ×2 (08:25→22:02)
[2017-05-06] MEDS: MoRPHine SULFATE 2 MG/ML CARP IV PRN ×2 (08:25→22:01)
[2017-05-06] MEDS: SCOPOLAMINE 1.5 MG TDSY TD SCH (12:58)
--- NOTE | 2017-05-06 14:53 | Progress Note ---
Subjective Date of Service: May 06, 2017. Subjective Pt evaluation today including: conversation w/ family, physical exam, review of inpatient medication list Pain: no pain PO Intake: NPO Voiding: irizarry catheter in place patient resting comfortably on Ativan drip no new issues updated family at bedside, made myself available for questions Problem List Medical Problems: (1) Acute kidney injury Status: Acute (2) Altered mental state Status: Acute (3) Compression fx, thoracic spine Status: Acute (4) Failure of outpatient treatment Status: Acute (5) Generalized weakness Status: Acute (6) Leukocytosis Status: Acute (7) Sepsis secondary to UTI Status: Acute (8) UTI (urinary tract infection) Status: Acute (9) UTI (urinary tract infection) Status: Acute (10) Weakness Status: Acute Surgical Problems: (1) History of esophageal dilatation Status: Chronic Review of Systems cannot review, non verbal Medications Current Inpatient Medications Medications (Trade) Dose Ordered Sig/Sana Route Start Time Stop Time Status Last Admin Dose Admin Acetaminophen 100 ml @ 400 mls/hr Q8H PRN IV 04/27/17 20:00 05/27/17 19:59 05/02/17 14:13 400 MLS/HR Artificial Tears (Lacri-Lube Oph Oint) 1 appln PRN PRN OPB 05/01/17 19:30 05/31/17 19:29 05/01/17 20:13 1 APPLN Lorazepam 1 mg/ Syringe 1 ml @ 0.5 mls/min Q15M PRN IV 05/03/17 13:30 06/02/17 13:29 05/03/17 23:39 0.5 MLS/MIN Scopolamine (Transderm-Scop Patch) 1.5 mg Q72H TD 05/03/17 14:00 06/02/17 13:59 05/06/17 12:58 1.5 MG Miscellaneous (Remove Transderm-Scop Patch) 1 ea Q72H N/A 05/06/17 14:00 06/05/17 13:59 05/06/17 12:58 1 EA Miscellaneous Information (Check Scopolamine Patch Placement) 1 ea QS N/A 05/03/17 16:00 06/02/17 15:59 05/06/17 08:19 1 EA Lorazepam (Ativan Inj) 1 mg Q15M PRN IV 05/03/17 14:00 06/02/17 13:59 05/03/17 15:27 1 MG Morphine Sulfate (MoRPHine SULFATE INJ) 1 mg Q30M PRN IV 05/03/17 18:00 05/17/17 17:59 05/06/17 08:25 1 MG Atropine Sulfate (Atropine Sulfate 1% Oph Soln) 3 drops Q1H PRN PO 05/03/17 19:00 06/02/17 17:59 05/06/17 08:25 3 DROPS Phenytoin Sodium 100 mg/Syringe 2 ml @ 1 mls/min Q8H IV 05/03/17 21:00 06/02/17 20:59 05/06/17 12:58 1 MLS/MIN Sodium Chloride 20 ml/Syringe 20 ml @ 0 mls/min Q8H IV 05/03/17 21:00 06/02/17 20:59 05/06/17 12:58 20 MLS/MIN Lorazepam 50 mg/ Dextrose 50 ml @ 0 mls/hr Q0M PRN IV 05/04/17 09:37 06/03/17 09:36 05/06/17 08:19 6 MLS/HR Objective Vital Signs Date Time Temp Pulse Resp B/P (MAP) Pulse Ox O2 Delivery O2 Flow Rate FiO2 05/06/17 10:00 Nasal Cannula 2.0 05/05/17 20:00 93 Nasal Cannula 2.0 05/05/17 15:57 Nasal Cannula 2.0 Physical Exam General Appearance: WD/WN, no apparent distress Neck: supple, no adenopathy, no JVD, trachea midline Respiratory/Chest: chest non-tender, no respiratory distress, no accessory muscle use, + decreased breath sounds, + pertinent finding (irregular respirations) Cardiovascular: regular rate, rhythm, no edema, no gallop, no JVD, no murmur Abdomen: normal bowel sounds, non tender, soft, no organomegaly Extremities: normal range of motion, non-tender, normal inspection, no pedal edema, no calf tenderness Neurologic/Psychiatric: architectural designer II-XII nml as tested, no motor/sensory deficits, alert, normal mood/affect, oriented x 3 Skin: normal color, warm/dry, no rash Assessment and Plan 81 yo female initially admitted for urosepsis related to nephrolithiasis - Right frontal ischemic stroke, occurred after line placement left paralysis, facial droop, encephalopathy not eating or drinking comfort measures only some occasional increased respirations per RN, will increase Morphine to 2mg PRN - Seizure activity: related to stroke Ativan drip, no seizure activity today - Urosepsis: antibiotics stopped comfort measures in place needs to stay in hospital due to need for IV Ativan will see every day Continued [facility] stay due to: multiple IV medications needed, home environment unsafe for pt Discharge planning: uncertain
[2017-05-07] MEDS: MoRPHine SULFATE 2 MG/ML CARP IV PRN ×5 (00:48→07:46)
[2017-05-07] MEDS: LORAZEPAM INJ 50 MG in D5W 50ML IN *POLYOLEFIN BAG* 25 ML IV PRN ×4 (01:57→08:58)
[2017-05-07] MEDS: PHENYTOIN IV 100 MG in SYRINGE 0 ML IV SCH ×2 (04:50→13:04)
[2017-05-07] MEDS: SODIUM CHLOR 0.9% 10ML FLUSH 20 ML in SYRINGE 0 ML IV SCH ×2 (04:50→13:05)
[2017-05-07] MEDS: ATROPINE SULFATE 1% OP SOLN 5 ML BTL PO PRN (07:08)
[2017-05-07] MEDS ORDERED: MoRPHine SULFATE 4 MG/ML 1 ML CARP\\VIAL IV STA (08:12)
[2017-05-07] MEDS ORDERED: MoRPHine SULF/NSS 250MG/250ML 250 ML IV PRN (08:15)
[2017-05-07] MEDS ORDERED: MoRPHine SULFATE 4 MG/ML 1 ML CARP\\VIAL ONE (08:18)
[2017-05-07] MEDS: CHECK SCOPOLAMINE PATCH PLACEMENT SCH ×2 (08:21)
[2017-05-07] MEDS ORDERED: SCOPOLAMINE 1.5 MG TDSY TD SCH (08:30)
--- NOTE | 2017-05-07 11:58 | Palliative Care Progress Note ---
Palliative Care Progress Note Date of Service May 07, 2017. Subjective Pt evaluation today including: conversation w/ patient, conversation w/ family (daughters- Melanie Lebron, Rayna, another female family member, and a grandson Oseas), physical exam, review of inpatient medication list Pain: no s/s of pain or discomfort at this time PO Intake: none Voiding: irizarry catheter in place (still draining adequate amounts of concentrated yellow urine) -This morning patient had labored breathing and increased secretions after she got a bath and was repositioned in bed. -She was requiring frequent doses of IV morphine. Morphine infusion was started and now is running at 4mg/hr. -Ativan infusion continues to run at 6mg/hr. No seizure activity noted by family or nursing. -Patient is now much more comfortable after morphine infusion started. Her face is relaxed and family reports relief. -Family denies any questions/concerns at this time. Dr. Villegas and I spent a good bit of time with them talking about end-of-life care. The family was appreciative. Review of Systems unable to obtain due to obtundation Objective Vital Signs Date Time Temp Pulse Resp B/P (MAP) Pulse Ox O2 Delivery O2 Flow Rate FiO2 05/07/17 09:57 Nasal Cannula 2.0 05/07/17 08:00 Nasal Cannula 2.0 05/07/17 00:00 Nasal Cannula 2.0 05/06/17 20:00 Nasal Cannula 2.0 05/06/17 15:33 Nasal Cannula 2.0 Physical Exam General Appearance: no apparent distress Neck: no JVD Respiratory/Chest: no respiratory distress, no accessory muscle use, + pertinent finding (slightly coarse in upper anterior lobes) Cardiovascular: regular rate, rhythm, no edema, + pertinent finding (no palpable right pedal pulse) Abdomen: normal bowel sounds, soft Extremities: + pertinent finding (toes are more cold) Skin: normal color, + mottled (bilateral knees) Assessment and Plan Problem list: Lethargy/weakness/obtundation s/p right frontal stroke Right frontal CVA NPO status 2/2 obtundation Left ureteral stone s/p stent with associated UTI-ESBL Hx lupus Goals of care (Z51.5) Palliative care recs: discussed with patient's daughters, Melanie Lebron, Rayna, grandson Oseas, and another female family member, at bedside. Dr. Villegas present. -Over weekend, patient's family decided to place patient on comfort measures only. -All medications, including abx, unrelated to comfort have been discontinued. -Patient had frequent seizure activity over weekend, she is now on continuous lorazepam infusion at 6mg/hr. -Continue morphine infusion for pain/respiratory distress/SOB. -Continue scopolamine patch 1.5mg TD Q72h and atropine 1% oph soln 3 drops SL Q1h PRN secretions. -Patient remains on phenytoin IV for seizure activity. -Unstable for discharge, family is aware. -Support given to family. They are appreciative and deny any further questions/ concerns. I will continue to follow as needed. Thank you again for this consult. Continued [facility] stay due to: multiple IV medications needed, home environment unsafe for pt Discharge planning: uncertain
--- NOTE | 2017-05-07 12:33 | Progress Note ---
Subjective Date of Service: May 07, 2017. Subjective Pt evaluation today including: conversation w/ family, physical exam, review of inpatient medication list Pain: no pain PO Intake: NPO Voiding: irizarry catheter in place patient had increased dyspnea today, more distress that did not improve with Morphine 2mg IV gave 4mg IV x 1, started drip, breathing more comfortable Problem List Medical Problems: (1) Acute kidney injury Status: Acute (2) Altered mental state Status: Acute (3) Compression fx, thoracic spine Status: Acute (4) Failure of outpatient treatment Status: Acute (5) Generalized weakness Status: Acute (6) Leukocytosis Status: Acute (7) Sepsis secondary to UTI Status: Acute (8) UTI (urinary tract infection) Status: Acute (9) UTI (urinary tract infection) Status: Acute (10) Weakness Status: Acute Surgical Problems: (1) History of esophageal dilatation Status: Chronic Review of Systems cannot review, unresponsive Medications Current Inpatient Medications Medications (Trade) Dose Ordered Sig/Sana Route Start Time Stop Time Status Last Admin Dose Admin Acetaminophen 100 ml @ 400 mls/hr Q8H PRN IV 04/27/17 20:00 05/27/17 19:59 05/02/17 14:13 400 MLS/HR Artificial Tears (Lacri-Lube Oph Oint) 1 appln PRN PRN OPB 05/01/17 19:30 05/31/17 19:29 05/01/17 20:13 1 APPLN Lorazepam 1 mg/ Syringe 1 ml @ 0.5 mls/min Q15M PRN IV 05/03/17 13:30 06/02/17 13:29 05/03/17 23:39 0.5 MLS/MIN Scopolamine (Transderm-Scop Patch) 1.5 mg Q72H TD 05/03/17 14:00 06/02/17 13:59 05/06/17 12:58 1.5 MG Miscellaneous (Remove Transderm-Scop Patch) 1 ea Q72H N/A 05/06/17 14:00 06/05/17 13:59 05/06/17 12:58 1 EA Miscellaneous Information (Check Scopolamine Patch Placement) 1 ea QS N/A 05/03/17 16:00 06/02/17 15:59 05/07/17 08:21 1 EA Lorazepam (Ativan Inj) 1 mg Q15M PRN IV 05/03/17 14:00 06/02/17 13:59 05/03/17 15:27 1 MG Atropine Sulfate (Atropine Sulfate 1% Oph Soln) 3 drops Q1H PRN PO 05/03/17 19:00 06/02/17 17:59 05/07/17 07:08 3 DROPS Phenytoin Sodium 100 mg/Syringe 2 ml @ 1 mls/min Q8H IV 05/03/17 21:00 06/02/17 20:59 05/07/17 04:50 1 MLS/MIN Sodium Chloride 20 ml/Syringe 20 ml @ 0 mls/min Q8H IV 05/03/17 21:00 06/02/17 20:59 05/07/17 04:50 20 MLS/MIN Lorazepam 50 mg/ Dextrose 50 ml @ 0 mls/hr Q0M PRN IV 05/04/17 09:37 06/03/17 09:36 05/07/17 08:58 6 MLS/HR Morphine Sulfate (MoRPHine SULFATE INJ) 2 mg Q30M PRN IV 05/06/17 15:00 05/17/17 17:59 05/07/17 07:46 2 MG Morphine Sulfate/ Dextrose 250 ml @ 4 mls/hr Q24H PRN IV 05/07/17 08:15 05/21/17 08:14 05/07/17 09:00 4 MLS/HR Scopolamine (Transderm-Scop Patch) 1.5 mg Q72H TD 05/07/17 08:30 06/06/17 08:29 05/07/17 09:41 1.5 MG Miscellaneous (Remove Transderm-Scop Patch) 1 ea Q72H N/A 05/10/17 08:30 06/09/17 08:29 Objective Vital Signs Date Time Temp Pulse Resp B/P (MAP) Pulse Ox O2 Delivery O2 Flow Rate FiO2 05/07/17 09:57 Nasal Cannula 2.0 05/07/17 08:00 Nasal Cannula 2.0 05/07/17 00:00 Nasal Cannula 2.0 05/06/17 20:00 Nasal Cannula 2.0 05/06/17 15:33 Nasal Cannula 2.0 Physical Exam General Appearance: WD/WN, + mild distress Respiratory/Chest: chest non-tender, no respiratory distress, no accessory muscle use, + decreased breath sounds, + pertinent finding (irregular respirations) Cardiovascular: regular rate, rhythm, no edema, no gallop, no JVD, no murmur Abdomen: non tender, soft, no organomegaly, + abnormal bowel sounds (hypoactive ) Extremities: normal range of motion, non-tender, normal inspection, no pedal edema, no calf tenderness 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 as 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, + motor weakness, + depressed affect, + disoriented Skin: normal color, warm/dry, no rash Assessment and Plan 81 yo female initially admitted for urosepsis related to nephrolithiasis - Right frontal ischemic stroke, 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
--- NOTE | 2017-05-07 15:41 | Death Pronouncement Note ---
Pronouncement Note Date & Time of May 07, 2017. 1505 Pronouncement At time of pronouncement the patients pupils were fixed and dilated, there was no spontaneous respiratory effort, no palpable pulse, no audible heart tones, and no response to pain or voice.
[2017-05-07] MEDS ORDERED: CHECK SCOPOLAMINE PATCH PLACEMENT SCH (16:00)
--- NOTE | 2017-05-12 16:24 | Death Summary ---
Summary of Admission Date Apr 27, 2017 at 19:54 Date & Time of May 07, 2017. 1505 Cause of Large ischemic stroke Secondary Diagnoses Status epilepticus Respiratory failure UTI Hospital Course 81 yo female initially admitted for urosepsis related to nephrolithiasis. Patient initially treated with antibiotics, responded well. She was going to need 14 day course of IV antibiotics and unfortunately a PICC line could not be placed because her veins were too small. A Cutler catheter was placed in the right IJ for access. Unfortunately, shortly after the procedure was completed, the patient started to have left sided neglect, weakness, left facial droop. A stroke alert was called. Eventually an MRI was performed and the patient had scattered areas of ischemia on right side consistent with acute embolic strokes. The patient was encephalopathic. Family did not want any aggressive measures taken, she was made comfort care. She later developed seizures and required Ativan drip to keep them under control. Morphine provided for comfort. She peacefully on 05/07 with family at the bedside. 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
== END 2017-05-07 19:31 | disposition expired | DRG 871 ==
LOC: C.EDB 16:04 → C.MS2W 19:54 → EDBEDREQ 20:04 → ENRESERV 20:11 → CANBEDREQ 05-02 03:23 → C.MED 05-02 03:56 → ENRESERV 05-02 04:54 → C.4E 05-03 13:29 → ENRESERV 05-03 15:58
PROVIDERS: ADMIT Hospitalist; ATTEND Internal Medicine
PROC: 0T778DZ Dilation of Left Ureter with Intraluminal Device, Via Natural or Artificial Opening Endoscopic (ICD-10-PCS; principal; 2017-04-29 10:15)
PROC: 03H333Z Insertion of Infusion Device into Right Subclavian Artery, Percutaneous Approach (ICD-10-PCS; 2017-05-01)
PROC: 03PYX3Z Removal of Infusion Device from Upper Artery, External Approach (ICD-10-PCS; 2017-05-02)
DX: A41.9 Sepsis, unspecified organism (principal); I63.9 Cerebral infarction, unspecified; N20.1 Calculus of ureter; N39.0 Urinary tract infection, site not specified; B96.20 Unspecified Escherichia coli [E. coli] as the cause of diseases classified elsewhere; K21.9 Gastro-esophageal reflux disease without esophagitis; G62.9 Polyneuropathy, unspecified; E87.6 Hypokalemia; E53.8 Deficiency of other specified B group vitamins; G89.29 Other chronic pain; F32.9 Major depressive disorder, single episode, unspecified; M79.7 Fibromyalgia; I12.9 Hypertensive chronic kidney disease with stage 1 through stage 4 chronic kidney disease, or unspecified chronic kidney disease; E03.9 Hypothyroidism, unspecified; M81.0 Age-related osteoporosis without current pathological fracture; N18.3 Chronic kidney disease, stage 3 (moderate); Z87.440 Personal history of urinary (tract) infections; Z87.442 Personal history of urinary calculi; Z83.3 Family history of diabetes mellitus; Z81.8 Family history of other mental and behavioral disorders; Z66 Do not resuscitate; R56.9 Unspecified convulsions; Z51.5 Encounter for palliative care